=== PATIENT | female | born 1930 | race Caucasian/White ===

== ENCOUNTER 2019-06-09 17:17 | Emergency (ER) | payer BC ==
[2019-06-09 17:35] VITALS: TEMP 98; BMI 31.5
[2019-06-09] MEDS ORDERED: DIPHTH,PERTUSS(ACELL),TET 0.5 ML DISP.SYRIN IM ONE ×2 (18:02→20:33)
--- NOTE | 2019-06-09 18:06 | PDOC ---
History of Present Illness - General Chief Complaint: Injury Stated Complaint: FALL Time Seen by Provider: 06/09/19 17:49 - History of Present Illness Initial Comments: The pt is an 89F w/ a history of HTN, a-fib (no AC), HLD, HF who presents for evaluation s/p mechanical fall from standing. She states she was getting something out of the refrigerator, was not using her walker, lost her balance, and fell backwards. She states the fell backwards onto her bottom and hit her head on the cabinet behind her. She denies LOC. Denies dizziness before/after fall, denies chest pain, trouble breathing, change in vision, N/V/C/D, dysuria, diarrhea, hematuria, or blood in her stool. Reports she should be on Eliquis but has not taken it in 1.5 years. 06/09/19 18:00 Past History - Past Medical History Allergies/Adverse Reactions: Allergies Allergy/AdvReac Type Severity Reaction Status Date / Time No Known Allergies Allergy Verified 06/09/19 17:41 Home Medications: Ambulatory Orders Aspirin [ASA -] 81 mg PO DAILY 06/09/19 Atorvastatin Ca [Lipitor] 20 mg PO HS 06/09/19 Digoxin [Lanoxin -] 0.125 mg PO DAILY 06/09/19 Diltiazem HCl [Diltiazem ER] 120 mg PO DAILY 06/09/19 Furosemide [Lasix -] 40 mg PO DAILY 06/09/19 Lisinopril 5 mg PO DAILY 06/09/19 Cardiac Disorders: Yes (atrial fib) COPD: No HTN: Yes Hypercholesterolemia: Yes - Psycho Social/Smoking Cessation Hx Smoking History: Never smoked Hx Alcohol Use: Yes (occasional) Drug/Substance Use Hx: No Review of Systems - Review of Systems Able to Perform ROS?: Yes Comments:: GENERAL/CONSTITUTIONAL: No fever or chills. No weakness HEAD, EYES, EARS, NOSE AND THROAT: No change in vision. No change in hearing. No sore throat CARDIOVASCULAR: No chest pain or shortness of breath RESPIRATORY: Denies cough, hemoptysis GASTROINTESTINAL: No nausea, vomiting, diarrhea or constipation GENITOURINARY: No dysuria, frequency, or change in urination MUSCULOSKELETAL: No joint or muscle swelling or pain. No neck or back pain SKIN: No rash NEUROLOGIC: No headache, vertigo, loss of consciousness, or change in strength/ sensation ENDOCRINE: No increased thirst. No abnormal weight change HEMATOLOGIC/LYMPHATIC: No anemia, easy bleeding, or history of blood clots ALLERGIC/IMMUNOLOGIC: No hives or skin allergy 06/09/19 18:07 Is the patient limited Montserratian proficient: No *Physical Exam - Vital Signs Last Vital Signs Temp Pulse Resp BP Pulse Ox 98.0 F 93 H 16 119/58 L 100 06/09/19 17:20 06/09/19 17:20 06/09/19 17:20 06/09/19 17:20 06/09/19 17:20 - Physical Exam GENERAL: Awake, alert, and oriented to person/place/time, in no acute distress HEAD: No signs of trauma, normocephalic, atraumatic EYES: PERRLA, EOMI, sclera anicteric, conjunctiva clear ENT: Hearing grossly normal, nares patent, oropharynx clear without exudates. Moist mucosa LUNGS: No distress, speaks in full sentences, clear to auscultation bilaterally HEART: Regular rate and irregularly irregular rhythm, normal S1 and S2, no murmurs appreciated, peripheral pulses normal and equal bilaterally ABDOMEN: Soft, nontender, normoactive bowel sounds. No guarding, no rebound. No masses EXTREMITIES: Normal inspection, Normal range of motion, no edema. No clubbing or cyanosis NEUROLOGICAL: Cranial nerves II through XII grossly intact. Normal speech, normal gait, no focal sensorimotor deficits SKIN: 2.5cm linear laceration w/o active hemorrhage on R posterior parietal scalp 06/09/19 18:07 Procedures - Laceration/Wound Repair Right Posterior Head Wound Length: to 2.5 cm Wound Explored: clean Wound's Depth, Shape: superficial Irrigated w/ Saline: Yes Betadine Prep: No Anesthesia: 1% Lidocaine Amount of Anesthetic (ccs): 6 Wound Repaired With: Prescott (3) Layer Closure: No Sterile Dressing Applied: Yes ED Treatment Course - RADIOLOGY Radiology Studies Ordered: Category Date Time Status HEAD CT WITHOUT CONTRAST [CT] Stat CT Scan 06/09/19 18:00 Ordered Medical Decision Making - Medical Decision Making The pt is an 89F w/ a history of HTN, a-fib (no AC), HLD, HF who presents for evaluation s/p mechanical fall from standing. ED Course CT Head Boostrix UA, UCx 06/09/19 18:08 Laceration cleaned and repaired with 3 willa Wound care instructions given 06/09/19 18:46 CT head read and UA pending Pt signed out to night team Discharge - Discharge Information Problems reviewed: Yes Clinical Impression/Diagnosis: Laceration Fall Qualifiers: Encounter type: initial encounter Qualified Code(s): W19.XXXA - Unspecified fall, initial encounter Condition: Stable Disposition: HOME - Admission No - Follow up/Referral Referrals: [facility] [place] [place] [Provider Group] - Patient Discharge Instructions Patient Printed Discharge Instructions: DI for Laceration Repair -- [place] Additional Instructions: You were seen in the Emergency Department for evaluation after a fall. Your wound was stapled closed otherwise your imaging was unremarkable. To clean the wound wash with soap and water every day. Pat dry. You may leave the wound open to air. You will need to have the willa removed in 7 days. Return to the Emergency Department if you develop redness around the wound, increased swelling, fevers, wound drainage, worsening symptoms, change in sensation/strength, or any new/concerning symptoms. - Post Discharge Activity
--- NOTE | 2019-06-09 19:24 | PDOC ---
Documentation entered by Roel Valles SCRIBE, acting as scribe for Shane Salgado MD. Shane Salgado MD: This documentation has been prepared by the Hai lei Daniel, SCRIBE, under my direction and personally reviewed by me in its entirety. I confirm that the documentation accurately reflects all work, treatment, procedures, and medical decision making performed by me. Attending Attestation - Resident Resident Name: Walker Millan - ED Attending Attestation I have performed the following: I have examined & evaluated the patient, The case was reviewed & discussed with the resident, I agree w/resident's findings & plan, Exceptions are as noted - HPI HPI: 06/09/19 18:01 The patient is an 89 year old female with a past medical history of afib ( formely on eliquis but stopped due to cost) here today for evaluation of fall. The patient reports that she lost her balance while turning trying to get something from the fridge and fell backwards landing on her buttocks. She reports that when she fell she hit the back of her head on a cabinet. She denies any loss of consciousness, neck apain, vision changes, numbness/tingling/ wekness. Patient denies headache, lightheadedness. Denies fever, chills. Denies chest pain, shortness of breath, f/c, cough. Denies nausea, vomiting, diarrhea, abdominal pain, dysuria. Allergies: NKA - Physicial Exam PE: 06/09/19 19:22 GENERAL: The patient is awake, alert, and fully oriented, Nontoxic - in no acute distress. HEAD: Normocephalic, small superficial laceration on R parietal scalp with oozing blood. EYES: extraocular movements intact, sclera anicteric, conjunctiva clear. ENT: Normal voice, Moist mucous membranes. NECK: Normal range of motion, supple, no focal bony tendreness to midline of cervical/thoracic/lumbar spine. LUNGS: Breath sounds equal, clear to auscultation bilaterally. No wheezes, no rhonchi, no rales. HEART: iregular, normal S1 and S2 without murmur, rub or gallop. ABDOMEN: Soft, nontender, No guarding, no rebound. No CVA tenderness EXTREMITIES: Normal range of motion, pitting edema. NEUROLOGICAL: No facial assymetry, Normal speech, movin gall 4 extremities spontaneously and symmetrically , PSYCH: Normal mood, normal affect. SKIN: Warm, Dry, normal turgor, - Medical Decision Making 06/09/19 17:56 89y F hx of afib (off a/c) htn, hl, uses a walker at baseline presents sp fall , no LOC. +lac, therwise asympomatic will obtian CT head 06/09/19 19:24 laceration was closed with good approximation using [address] erad anticipate dc with oupatient fu
[2019-06-09 21:10] VITALS: BP 122/80; PULSE 82
== END 2019-06-09 21:10 | disposition home or self-care (01) ==
LOC: JER 17:17
PROC: 0HQ0XZZ Repair Scalp Skin, External Approach (ICD-10-PCS; principal; 2019-06-09)
PROC: 3E0234Z Introduction of Serum, Toxoid and Vaccine into Muscle, Percutaneous Approach (ICD-10-PCS; 2019-06-09)
DX: S01.01XA Laceration without foreign body of scalp, initial encounter (principal); W01.198A Fall on same level from slipping, tripping and stumbling with subsequent striking against other object, initial encounter; Y93.89 Activity, other specified; Y92.010 Kitchen of single-family (private) house as the place of occurrence of the external cause; Y99.8 Other external cause status; I25.10 Atherosclerotic heart disease of native coronary artery without angina pectoris; I11.0 Hypertensive heart disease with heart failure; I50.9 Heart failure, unspecified; I48.91 Unspecified atrial fibrillation; E78.5 Hyperlipidemia, unspecified; Z99.89 Dependence on other enabling machines and devices
CPT/HCPCS: 12001-25; 70450-TC; 90471; 90715; 99283-25

== ENCOUNTER 2019-06-15 11:54 | Inpatient (IN) | payer BC, OTHER ==
--- NOTE | 2019-06-15 12:31 | PDOC ---
History of Present Illness - General Chief Complaint: Suture/Staple Removal(Here) Stated Complaint: SUTURE REMOVAL Time Seen by Provider: 06/15/19 12:25 History Source: Patient Exam Limitations: No Limitations - History of Present Illness Initial Comments: 06/15/19 12:27 HPI: 89 yo F PMH HTN, CHF, Afib (not on AC "due to cost"), presented for staple removal from scalp, she then reported chest pain, SOB, and LE edema in setting of medication non-compliance in setting of recent move to the area (from [place] ). No local PCP, out of her prescription medications with 2 days of acute symptom worsening. Patient reports 2 years of worsening swelling in bilateral extremities, R worse than L. 3-4 years worsening shortness of breath, "had asthma as a child." Hasn't been on a plane in 3 years. Ambulates with a walker, limited by leg heaviness and SOB, progressively worsening. Denies recent chest pain, cough, fevers, chills, flights, nausea, vomiting, diarrhea, abdominal pain, dysuria. Endorses baseline constipation that has improved with rice bran, BM yesterday without blood or dark color. All: NKDA Meds: Non-compliant PMH: As above PSH: Denies, remote D&C Past History - Travel Traveled outside of the country in the last 30 days: No Close contact w/someone who was outside of country & ill: No - Past Medical History Allergies/Adverse Reactions: Allergies Allergy/AdvReac Type Severity Reaction Status Date / Time No Known Allergies Allergy Verified 06/09/19 17:41 Home Medications: Ambulatory Orders Aspirin [ASA -] 81 mg PO DAILY 06/09/19 Atorvastatin Ca [Lipitor] 20 mg PO HS 06/09/19 Digoxin [Lanoxin -] 0.125 mg PO DAILY 06/09/19 Diltiazem HCl [Diltiazem ER] 120 mg PO DAILY 06/09/19 Furosemide [Lasix -] 40 mg PO DAILY 06/09/19 Lisinopril 5 mg PO DAILY 06/09/19 Cardiac Disorders: Yes (atrial fib) COPD: No HTN: Yes Hypercholesterolemia: Yes - Psycho Social/Smoking Cessation Hx Smoking History: Never smoked Have you smoked in the past 12 months: No Information on smoking cessation initiated: No Hx Alcohol Use: No Drug/Substance Use Hx: No Review of Systems - Review of Systems Able to Perform ROS?: Yes Is the patient limited Cambodian proficient: Yes Constitutional: No: Chills, Diaphoresis, Fever, Weakness HEENTM: No: Recent change in vision, Nose Congestion, Throat Pain Respiratory: Yes: Cough (occasional, dry, not currently), Shortness of Breath, SOB with Exertion (diffiult to exert herself). No: Wheezing, Productive cough, Hemoptysis Cardiac (ROS): Yes: Edema (R > L). No: Chest Pain, Irregular Heart Rate, Lightheadedness, Palpitations, Syncope, Chest Tightness ABD/GI: Yes: Constipated. No: Diarrhea, Nausea, Rectal Bleeding, Vomiting : No: Burning, Dysuria, Frequency Musculoskeletal: No: Muscle Pain, Muscle Weakness, Neck Pain Integumentary: No: Erythema, Pallor, Rash Neurological: No: Headache, Numbness, Tingling, Weakness Psychiatric: No: Stressors, Change in Appetite Endocrine: No: Change in Weight Hematologic/Lymphatic: No: Anemia, Blood Clots, Easy Bleeding All Other Systems: Reviewed and Negative *Physical Exam - Vital Signs Last Vital Signs Temp Pulse Resp BP Pulse Ox 97.9 F 84 16 159/95 99 06/15/19 11:58 06/15/19 11:58 06/15/19 11:58 06/15/19 11:58 06/15/19 11:58 - Physical Exam 06/15/19 13:08 Vitals reviewed, AFVSS, hypertensive GEN: Well appearing, appears stated age, mild distress, speaking short sentences , comfortable. AAOx3. HEENT: NCAT, EOMI, PERRL. No facial asymmetry. Moist mucous membranes. Normal voice. Trachea midline. CV: Irregular rhythm, S1/S2, no murmurs / rubs / gallops appreciated. LUNG: CTAB. No wheezes, rales, rhonchi. No cough. Speaking short sentences. GI: Soft, NTND, no guarding, no rebound. No masses. EXTREMITIES: LE edema, R>L. No obvious deformities of all extremities. SKIN: Warm, dry, no rashes appreciated, non-jaundiced. PSYCH: Normal mood and affect. Cooperative and appropriate. NEURO: CN grossly intact. Moving all extremities well. Normal strength and sensation grossly. ED Treatment Course - LABORATORY CBC & Chemistry Diagram: 06/15/19 12:50 06/15/19 12:50 Medical Decision Making - Medical Decision Making 06/15/19 13:12 89 yo F PMH HTN, CHF, Afib (not on AC "due to cost"), presented for staple removal from scalp, she then reported chest pain, SOB, and LE edema in setting of medication non-compliance in setting of recent move to the area (from [place] ). Concerning for access to medications, decompensated CHF vs PNA vs COPD vs less likely PE. Patient with mostly chronic complaints, presenting with subacute medication discontinuation and symptom worsening. Will require close follow-up with a new primary as an outpatient. - CBC, CMP, Mg, Phos, Cardiac Profile, BNP, PT - CXR, EKG, Duplex US 06/15/19 13:53 - Digoxin level added on 06/15/19 14:04 - CXR with large heart, fullness of the zahra, RML density. No priors for comparison. - 1100 BNP, Troponin 0.03 - no baseline labs for comparison - Patient will be admitted, fluid overload, medication / PCP arrangement 06/15/19 15:06 - Duplex without signs of DVT - Digoxin level pending 06/15/19 15:13 - Nitro Paste - Furosemide 40mg 06/15/19 15:14 Discharge - Discharge Information Problems reviewed: Yes Clinical Impression/Diagnosis: Acute exacerbation of CHF (congestive heart failure) Qualifiers: Heart failure type: unspecified Qualified Code(s): I50.9 - Heart failure, unspecified Condition: Stable - Admission Yes - Follow up/Referral - Patient Discharge Instructions - Post Discharge Activity
[2019-06-15 13:22] LABS: BASO % 1.2 % (0-2.0); EOS % 2.5 % (0-4.5); HEMATOCRIT 35.8 % (32.4-45.2); HEMOGLOBIN 11.7 GM/dL (10.7-15.3); LYMPH % 25.2 % (8-40); MCH 30.5 pg (25.7-33.7); MCHC 32.6 g/dl (32.0-36.0); MEAN CELL VOLUME 93.5 fl (80-96); MEAN PLT VOLUME 7.6 fl (7.5-11.1); MONO % 10.5 % (3.8-10.2); NEUT % 60.6 % (42.8-82.8); PLATELET COUNT 203 K/MM3 (134-434); RBC 3.83 M/mm3 (3.60-5.2); RDW 14.3 % (11.6-15.6)
[2019-06-15 13:52] LABS: INR 1.17 (0.83-1.09); MAGNESIUM 2.2 mg/dL (1.8-2.4); N-TERMINAL BNP 1196.5 pg/ml (5-450); PHOSPHOROUS 3.9 mg/dL (2.5-4.9); PROTHROMBIN TIME (PATIENT) 13.8 SEC (9.7-13.0)
[2019-06-15 13:55] LABS: ACTIVATED PTT 33.3 SECONDS (25.2-36.5)
[2019-06-15 14:07] LABS: BILIRUBIN,TOTAL 0.9 mg/dL (0.2-1); BLOOD UREA NITROGEN 25.2 mg/dL (7-18); CALCIUM 9.3 mg/dL (8.5-10.1); CREATININE 1.1 mg/dL (0.55-1.3); POTASSIUM 4.4 mmol/L (3.5-5.1); TOT PROT 7.5 g/dl (6.4-8.2)
--- NOTE | 2019-06-15 14:15 | EKG ---
Test Reason : Blood Pressure : / mmHG Vent. Rate : 087 BPM Atrial Rate : 080 BPM P-R Int : 000 ms QRS Dur : 090 ms QT Int : 340 ms P-R-T Axes : 000 023 -46 degrees QTc Int : 409 ms ATRIAL FIBRILLATION WITH A COMPETING JUNCTIONAL PACEMAKER NONSPECIFIC ST AND T WAVE ABNORMALITY ABNORMAL ECG WHEN COMPARED WITH ECG OF 05-APR-1998 13:41, ATRIAL FIBRILLATION HAS REPLACED SINUS RHYTHM NONSPECIFIC T WAVE ABNORMALITY NOW EVIDENT IN INFERIOR LEADS NONSPECIFIC T WAVE ABNORMALITY, WORSE IN ANTEROLATERAL LEADS Confirmed by MELODY CEDILLO MD ([id number]) on 06/15/2019 2:14:50 PM Referred By: Confirmed By:MELODY CEDILLO MD
[2019-06-15] MEDS ORDERED: FUROSEMIDE 40 MG/4 ML INJECTABLE VIAL IVPUSH ONE (15:12)
[2019-06-15] MEDS ORDERED: NITROGLYCERIN 2% OINTMENT - 1GM PACKET TD ONE ×2 (15:12→16:11)
--- NOTE | 2019-06-15 15:20 | PDOC ---
Documentation entered by Patricia Nelson SCRIBE, acting as scribe for Yuni Russell MD. Yuni Russell MD: This documentation has been prepared by the Leslie lei Brenda, SCRIBE, under my direction and personally reviewed by me in its entirety. I confirm that the documentation accurately reflects all work, treatment, procedures, and medical decision making performed by me. Attending Attestation - Resident Resident Name: ForrestAurelio - ED Attending Attestation I have performed the following: I have examined & evaluated the patient, The case was reviewed & discussed with the resident, I agree w/resident's findings & plan, Exceptions are as noted - HPI HPI: 89 yo F history HTN, CHF, afib presents for staple removal, however, she also c/ o cp, SOb, and progressively worsening LE edema. She ran out of her medication, and recently [place] from [place], does not have a physician here. +Swelling to BLE, R> L. No other complaints at present. - Physicial Exam PE: GENERAL: Awake, alert, and fully oriented, in no acute distress HEAD: No signs of trauma EYES: PERRLA, EOMI, sclera anicteric, conjunctiva clear ENT: Auricles normal inspection, hearing grossly normal, nares patent, oropharynx clear without exudates. Moist mucosa NECK: Normal ROM, supple, no lymphadenopathy, JVD, or masses LUNGS: Good air entry B/L, with diffuse crackles B/L. HEART: Regular rate and rhythm, normal S1 and S2, no murmurs, rubs or gallops ABDOMEN: Soft, nontender, normoactive bowel sounds. No guarding, no rebound. No masses EXTREMITIES: Normal range of motion. 2+ pitting edema to BLE. No clubbing or cyanosis. No cords, erythema, or tenderness NEUROLOGICAL: Cranial nerves II through XII grossly intact. Normal speech. Motor and sensation intact. SKIN: Warm, Dry, normal turgor, no rashes or lesions noted. - Medical Decision Making Pt presented for suture removal, however, she also was noted to have leg swelling and SOB, noted to be off all of her medications as she recently moved back from [place] and does not have a physician here. Will give nitropaste to help with her breathing, lasix, admit. Heart Score/ECG Review - ECG Impressions Comment:: EKG read 12:22- afib with rate 87. No acute ST/T changes.
[2019-06-15] MEDS ORDERED: FUROSEMIDE 40 MG/4 ML INJECTABLE VIAL ONE (16:11)
--- NOTE | 2019-06-15 16:57 | HP ---
CHIEF COMPLAINT: Chest Pain PCP: Pt. does not have one. HISTORY OF PRESENT ILLNESS: Pt. is an 89 y.o. M w/ PMHx. of HTN, CHF, Afib(not on AC because of monetary issues) and DM2 presents for removal of willa after a fall on the . Pt. during removal of willa endorsed chest pain that has since resolved. Pt. states she fell because she was trying to perform her household duties without her walker and fell and hit her head. Head CT was negative at that time. Pt. states that she lives alone at home and has been experiencing worsening dyspnea on exertion. Pt. has been without Eliquis for the last 1.5 years because of issues with the munson of the medication. Pt. states she has run out of her medications and has not been able to follow up with any physician. Pt. endorses leg swelling. Pt. denies any current shortness of breath, chest pain, fever, chills, nausea, vomiting, dysuria or diarrhea. ER course was notable for: (1)CBC, CMP, EKG, (2)Lasix 40mg IVP, BNP, Digoxin level (3)CXR Recent Travel: Pt. moved here from [place] PAST MEDICAL HISTORY: As above PAST SURGICAL HISTORY: D&C Social History: Smoking: Denies Alcohol: Denies Drugs: Denies Allergies No Known Allergies Allergy (Verified 06/09/19 17:41) HOME MEDICATIONS: Home Medications Medication Instructions Recorded Aspirin [ASA -] 81 mg PO DAILY 06/09/19 Atorvastatin Ca [Lipitor] 20 mg PO HS 06/09/19 Digoxin [Lanoxin -] 0.125 mg PO DAILY 06/09/19 Diltiazem HCl [Diltiazem ER] 120 mg PO DAILY 06/09/19 Furosemide [Lasix -] 40 mg PO DAILY 06/09/19 Lisinopril 5 mg PO DAILY 06/09/19 REVIEW OF SYSTEMS As above PHYSICAL EXAMINATION Vital Signs - 24 hr 06/15/19 06/15/19 06/15/19 11:58 13:10 16:15 Temperature 97.9 F Pulse Rate 84 Pulse Rate [ 88 Apical] Respiratory 16 20 Rate Blood Pressure 159/95 Blood Pressure 152/89 [Left Arm] O2 Sat by Pulse 99 99 100 Oximetry (%) GENERAL: Awake, alert, and fully oriented, in no acute distress. HEAD: Laceration EYES: Extraocular movements intact, sclera anicteric, conjunctiva clear. EARS, NOSE, THROAT: Ears normal, nares patent, oropharynx clear without exudates. Moist mucous membranes. NECK: Normal range of motion, supple without lymphadenopathy, JVD, or masses. LUNGS: CTAB anteriorly. accessory muscle use. HEART: Irregular rate and rhythm, normal S1 and S2 with 4/6 systolic murmur UPPER EXTREMITIES: 2+ radial pulses, warm, well-perfused. No cyanosis. No clubbing. No peripheral edema. LOWER EXTREMITIES: 2+ dorsal pedal pulses, warm, well-perfused. No calf tenderness. 3+ edema. RLE >LLE NEUROLOGICAL: Cranial nerves II-XII grossly intact. Normal speech. PSYCHIATRIC: Cooperative. Good eye contact. Appropriate mood and affect. SKIN: Warm, dry Laboratory Results - last 24 hr 06/15/19 06/15/19 06/15/19 12:50 12:50 12:50 WBC 5.0 RBC 3.83 Hgb 11.7 Hct 35.8 MCV 93.5 MCH 30.5 MCHC 32.6 RDW 14.3 Plt Count 203 MPV 7.6 Absolute Neuts (auto) 3.0 Neutrophils % 60.6 Lymphocytes % 25.2 Monocytes % 10.5 H Eosinophils % 2.5 Basophils % 1.2 Nucleated RBC % 0 PT with INR INR PTT (Actin FS) Sodium 140 Potassium 4.4 Chloride 108 H Carbon Dioxide 28 Anion Gap 3 L BUN 25.2 H Creatinine 1.1 Est GFR (CKD-EPI)AfAm 52.28 Est GFR (CKD-EPI)NonAf 45.11 Random Glucose 82 Calcium 9.3 Phosphorus 3.9 Magnesium 2.2 Total Bilirubin 0.9 AST 34 ALT 44 Alkaline Phosphatase 84 Creatine Kinase 106 Troponin I 0.03 B-Natriuretic Peptide 1196.5 H Total Protein 7.5 Albumin 4.0 Digoxin 06/15/19 06/15/19 12:50 13:52 WBC RBC Hgb Hct MCV MCH MCHC RDW Plt Count MPV Absolute Neuts (auto) Neutrophils % Lymphocytes % Monocytes % Eosinophils % Basophils % Nucleated RBC % PT with INR 13.80 H INR 1.17 H PTT (Actin FS) 33.3 Sodium Potassium Chloride Carbon Dioxide Anion Gap BUN Creatinine Est GFR (CKD-EPI)AfAm Est GFR (CKD-EPI)NonAf Random Glucose Calcium Phosphorus Magnesium Total Bilirubin AST ALT Alkaline Phosphatase Creatine Kinase Troponin I B-Natriuretic Peptide Total Protein Albumin Digoxin 0.54 L ASSESSMENT/PLAN: Pt. is an 89 y.o. M w/ PMHx. of HTN, CHF, Afib(not on AC because of monetary issues) and DM2 presents for removal of willa after a fall on the 10th. Pt. during removal of willa endorsed chest pain that has since resolved. #Congestive Heart Failure likely acute exacerbation will get Echo, call x 3 to [facility] [place] in [facility] unsuccessful for medical records Cardiology Consult to Dr. Keller to establish care and to manage Pt.s chronic conditions will start IV Lasix 20mg (caution because of 4/6 systolic murmur)--> titrate up pending echo results and pending diuretic response BNP: 1,196 Trop Negative, f/u Rpt. EKG shows Afib, 87 bpm, QTc: 409 and nonspecific T-wave abnormalities CXR: shows prominent fullness of zahra, with density in R. mid lung c/w ASA Strict Is and Os, Daily weights #Afib c/w Digoxin Digoxin Level: 0.54 started Eliquis 5mg BID c/w Diltiazem #HTN c/w Diltiazem and Lisinopril #DM Pt. endorses having DM will start ISS ACHS BGMs ACHS f/u A1c #HLD Lipitor 20mg #FEN no IVF, encourage PO intake with limit of 2L monitor electrolytes and replete as needed Diabetic/ Sodium controlled diet #DVT Ppx. Eliquis Visit type - Emergency Visit Emergency Visit: Yes ED Registration Date: 06/15/19 Care time: The patient presented to the Emergency Department on the above date and was hospitalized for further evaluation of their emergent condition. - New Patient This patient is new to me today: Yes Date on this admission: 06/15/19 - Critical Care Critical Care patient: No ATTENDING PHYSICIAN STATEMENT I saw and evaluated the patient. I reviewed the resident's note and discussed the case with the resident. I agree with the resident's findings and plan as documented. SUBJECTIVE: OBJECTIVE: ASSESSMENT AND PLAN:
--- NOTE | 2019-06-15 19:26 | PN ---
Teaching Attending Note Name of Resident: Orlin Cruz ATTENDING PHYSICIAN STATEMENT I saw and evaluated the patient. I reviewed the resident's note and discussed the case with the resident. I agree with the resident's findings and plan as documented. 89 F h/o HTN, CHF, Afib, T2Dm, obesity, presents for removal of willa s/p fall 5-6 days ago. Patient endorses having a mechanical fall at home and fell straight back, denies LOC but endorses some diffuse MSK pain. Patient presented today for removal of wilal in ED and was found to have QUEVEDO, crackles, and Afib exacerbation. Currently patient feels OK, denies CP/SOB/LOC but endorses SOB on exertion which has slowly progressed over days to weeks. Endorses all of her records are at [facility] in [place], [place], last admitted >1 year ago with similar presentation. PE VSS GA comfortable, AAox3, speaking in full sentences HEENT NC/AT, EOMI, neck supple, no JVD Chest good air entry b/l, mild bibasilar crackles, no wheezing CVS Irregularly irregular, GARRY+ Abd obese, Soft, NT, BS+, no guarding Ext b/l 1+ pitting edema, RLE>LLE Vital Signs - 24 hr 06/15/19 06/15/19 06/15/19 11:58 13:10 16:15 Temperature 97.9 F Pulse Rate 84 Pulse Rate [ 88 Apical] Respiratory 16 20 Rate Blood Pressure 159/95 Blood Pressure 152/89 [Left Arm] O2 Sat by Pulse 99 99 100 Oximetry (%) Laboratory Results - last 24 hr 06/15/19 06/15/19 06/15/19 12:50 12:50 12:50 WBC 5.0 RBC 3.83 Hgb 11.7 Hct 35.8 MCV 93.5 MCH 30.5 MCHC 32.6 RDW 14.3 Plt Count 203 MPV 7.6 Absolute Neuts (auto) 3.0 Neutrophils % 60.6 Lymphocytes % 25.2 Monocytes % 10.5 H Eosinophils % 2.5 Basophils % 1.2 Nucleated RBC % 0 PT with INR INR PTT (Actin FS) Sodium 140 Potassium 4.4 Chloride 108 H Carbon Dioxide 28 Anion Gap 3 L BUN 25.2 H Creatinine 1.1 Est GFR (CKD-EPI)AfAm 52.28 Est GFR (CKD-EPI)NonAf 45.11 Random Glucose 82 Calcium 9.3 Phosphorus 3.9 Magnesium 2.2 Total Bilirubin 0.9 AST 34 ALT 44 Alkaline Phosphatase 84 Creatine Kinase 106 Troponin I 0.03 B-Natriuretic Peptide 1196.5 H Total Protein 7.5 Albumin 4.0 Digoxin 06/15/19 06/15/19 12:50 13:52 WBC RBC Hgb Hct MCV MCH MCHC RDW Plt Count MPV Absolute Neuts (auto) Neutrophils % Lymphocytes % Monocytes % Eosinophils % Basophils % Nucleated RBC % PT with INR 13.80 H INR 1.17 H PTT (Actin FS) 33.3 Sodium Potassium Chloride Carbon Dioxide Anion Gap BUN Creatinine Est GFR (CKD-EPI)AfAm Est GFR (CKD-EPI)NonAf Random Glucose Calcium Phosphorus Magnesium Total Bilirubin AST ALT Alkaline Phosphatase Creatine Kinase Troponin I B-Natriuretic Peptide Total Protein Albumin Digoxin 0.54 L Current Medications Generic Name Dose Route Start Last Admin Trade Name Freq PRN Reason Stop Dose Admin Apixaban 5 mg 06/15/19 22:00 Eliquis - PO BID [facility] Aspirin 81 mg 06/16/19 10:00 Asa - PO DAILY [facility] Atorvastatin Calcium 20 mg 06/15/19 22:00 Lipitor - PO HS [facility] Digoxin 0.125 mg 06/16/19 10:00 Lanoxin - PO DAILY [facility] Diltiazem HCl 120 mg 06/16/19 10:00 Cardizem Cd - PO DAILY [facility] Furosemide 20 mg 06/16/19 10:00 Lasix Injection - IVPUSH DAILY [facility] Lisinopril 5 mg 06/16/19 10:00 Prinivil PO DAILY [facility] Home Medications Medication Instructions Recorded Aspirin [ASA -] 81 mg PO DAILY 06/09/19 Atorvastatin Ca [Lipitor] 20 mg PO HS 06/09/19 Digoxin [Lanoxin -] 0.125 mg PO DAILY 06/09/19 Diltiazem HCl [Diltiazem ER] 120 mg PO DAILY 06/09/19 Furosemide [Lasix -] 40 mg PO DAILY 06/09/19 Lisinopril 5 mg PO DAILY 06/09/19 A/P: 89 F CHF, HTN, T2Dm, obesity, Afib ?not on AC, admitted for management for CHFE and difficulty taking care of herself at home. Afib rate controlled, get digoxin levels, restart BB as tolerated CT brain neg. for bleed, no mental status changes, restart AC CHFE unknown EF, last echo years ago unable to recall results place Echo to evaluate cardiac function obtain trops x3 with EKGs 1 dose of Lasix 20mg IVP, restart BP meds as tolerated Cardiology consult T2Dm ISS, DM diet, basal insulin as needed Send A1c, lipid panel, TSH, RPR, B12 levels obesity counseled on diet, weight loss DVT ppx: Jose Admit to tele
[2019-06-15] MEDS: APIXABAN 5 MG TABLET PO SCH (21:04)
[2019-06-15] MEDS: ATORVASTATIN CA 20 MG TABLET (FP) PO SCH (21:04)
[2019-06-16 00:54] VITALS: BMI 30.3
[2019-06-16 09:26] LABS: BASO % 2.2 % (0-2.0); EOS % 2.7 % (0-4.5); HEMOGLOBIN 11.5 GM/dL (10.7-15.3); LYMPH % 34.4 % (8-40); MCH 30.6 pg (25.7-33.7); MCHC 32.9 g/dl (32.0-36.0); MEAN PLT VOLUME 8.1 fl (7.5-11.1); MONO % 13.4 % (3.8-10.2); NEUT % 47.3 % (42.8-82.8); PLATELET COUNT 207 K/MM3 (134-434); RBC 3.77 M/mm3 (3.60-5.2); RDW 14.2 % (11.6-15.6); WHITE BLOOD COUNT 4.5 K/mm3 (4.0-10.0)
--- NOTE | 2019-06-16 09:49 | CON.CARD ---
Consult Consult Specialty:: Cardiology Referred by:: Dr. Cervantes Reason for Consultation:: SOB - History of Present Illness Chief Complaint: SOB History of Present Illness: Pt is poor historian, history obtained primarily from review of ER and admission H/P: "89 y.o. M w/ PMHx. of HTN, CHF, Afib(not on AC because of monetary issues) and DM2 presents for removal of wilal after a fall on the . Pt. during removal of willa endorsed chest pain that has since resolved. Pt. states she fell because she was trying to perform her household duties without her walker and fell and hit her head. Head CT was negative at that time. Pt. states that she lives alone at home and has been experiencing worsening dyspnea on exertion. Pt. has been without Eliquis for the last 1.5 years because of issues with the munson of the medication. Pt. states she has run out of her medications and has not been able to follow up with any physician. Pt. endorses leg swelling. Pt. denies any current shortness of breath, chest pain, fever, chills , nausea, vomiting, dysuria or diarrhea." Patient denies CP, palps but does endorse feeling SOB for a few days with increased LE edema. 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 - History Source History Provided By: Patient, Medical Record - Past Medical History [employer]OLOGY [employer]NS[employer]IP: No: Alzheimer's, CVA, Dementia, Migraine, Multiple Sclerosis, Peripheral Neuropathy, Parkinson's, Seizure, Syncope, TIA, Vertigo, Other Cardio/Vascular: Yes: AFIB, CHF, HTN Pulmonary: No: Asthma, Bronchitis, Cancer, COPD, O2 Dependent, Pneumonia, Previously Intubated, Pulmonary Embolus, Pulmonary Fibrosis, Sleep Apnea, Other Gastrointestinal: No: Ascites, Cancer, Constipation, Crohn's Disease, Diverticulitis, Diverticulosis, Esophageal Varices, Gastritis, GERD, GI Bleed, Hemorrhoids, Hiatal Hernia, Inflamatory Bowel Disease, Irritable Bowel Disease, Pancreatitis, Peptic Ulcer Disease, Ulcerative Colitis, Other Hepatobiliary: No: Cirrhosis, Cholelithiasis, Cholecystitis, Choledocholithiasis , Hepatitis A, Hepatitis B, Hepatitis C, Other Renal/: No: Renal Failure, Renal Inusuff, BPH, Cancer, Hematuria, Hemodialysis , Neurogenic Bladder, Renal Calculi, UTI, Other Reproductive: No: Ectopic , Endometriosis, Fibroids, PID, Polycystic Ovary Syndrome, Postmenopausal, Other Psych: No: Addictions, Anxiety, Bipolar, Depression, Panic, Psychosis, Schizophrenia, Other Musculoskeletal: No: Bursitis, Chronic low back pain, Hemiparesis, Hemiplegia, Osteoarthritis, Paraplegia, Other Rheumatology: No: Fibromyalgia, Gout, Lupus, Rheumatoid Arthritis, Sarcoidosis, Vasculitis, Other ENT: No: Allergic Rhinitis, Sinusitis, Other Endocrine: No: Michael's Disease, Viet's Disease, Diabetes Insipidus, Diabetes Mellitus, Hyperparathyroidism, Hyperthyroidism, Hypothyroidism, Osteopenia, SIADH, Other - Alcohol/Substance Use Hx Alcohol Use: No - Smoking History Smoking history: Never smoked Have you smoked in the past 12 months: No - Social History Usual Living Arrangement: Alone History of Recent Travel: No Home Medications - Allergies Allergies/Adverse Reactions: Allergies Allergy/AdvReac Type Severity Reaction Status Date / Time No Known Allergies Allergy Verified 06/09/19 17:41 - Home Medications Home Medications: Ambulatory Orders Aspirin [ASA -] 81 mg PO DAILY 06/09/19 Atorvastatin Ca [Lipitor] 20 mg PO HS 06/09/19 Digoxin [Lanoxin -] 0.125 mg PO DAILY 06/09/19 Diltiazem HCl [Diltiazem ER] 120 mg PO DAILY 06/09/19 Furosemide [Lasix -] 40 mg PO DAILY 06/09/19 Lisinopril 5 mg PO DAILY 06/09/19 Family Medical History Family History: Unremarkable Review of Systems Findings/Remarks: see HPI - Review of Systems Constitutional: reports: No Symptoms Eyes: reports: No Symptoms HENT: reports: No Symptoms Neck: reports: No Symptoms Cardiovascular: reports: Shortness of Breath Respiratory: reports: Exercise Intolerance Gastrointestinal: reports: No Symptoms Genitourinary: reports: No Symptoms Integumentary: reports: No Symptoms Neurological: reports: No Symptoms Endocrine: reports: No Symptoms Hematology/Lymphatic: reports: No Symptoms Psychiatric: reports: No Symptoms - Risk Factors Known Risk Factors: Yes: Hypertension, Other (CHF) Vital Signs: Vital Signs Temperature 98.2 F 06/16/19 04:00 Pulse Rate 88 06/16/19 04:00 Respiratory Rate 20 06/16/19 04:00 Blood Pressure 153/78 06/16/19 04:00 O2 Sat by Pulse Oximetry (%) 97 06/15/19 22:00 Constitutional: Yes: No Distress, Calm Respiratory: Yes: Other (decreased breath sounds bases) Gastrointestinal: Yes: Soft Cardiovascular: Yes: Pulse Irregular JVD: Yes Heart Sounds: Yes: S1, S2 (irreg) Edema: Yes Edema: LLE: 2+, RLE: 2+ Neurological: Yes: Alert - Other Data Labs, Other Data: CBC, BMP 06/16/19 08:45 INR, PTT INR 1.17 (0.83-1.09) H 06/15/19 12:50 Troponin, BNP 06/15/19 06/15/19 12:50 20:40 Troponin I 0.03 0.03 B-Natriuretic Peptide 1196.5 H Troponin, BNP 06/15/19 06/15/19 12:50 20:40 Troponin I 0.03 0.03 B-Natriuretic Peptide 1196.5 H Laboratory Tests 06/15/19 06/15/19 06/15/19 12:50 12:50 12:50 WBC Hgb Plt Count INR 1.17 H Sodium 140 Potassium 4.4 BUN 25.2 H Creatinine 1.1 Troponin I 0.03 B-Natriuretic Peptide 1196.5 H Digoxin 06/15/19 06/15/19 06/16/19 13:52 20:40 08:45 WBC 4.5 Hgb 11.5 Plt Count 207 INR Sodium Potassium BUN Creatinine Troponin I 0.03 B-Natriuretic Peptide Digoxin 0.54 L AF 87, NSST Echo: Pending Imaging - Results EKG: Image Reviewed Assessment/Plan IMP: Acute on chronic CHF, mild exacerbation- unknown type (Syst vs diast) AF HTN REC: 1. Agree to resume AC as [id number] score merits AC. Will need to involve social work/pillowcase maker to see if she can obtain Eliquis as outpatient. 2. Can d/c ASA while on Eliquis. 3. Agree w/ IV Lasix/ daily weights/daily BMP to monitor renal fx 4. Echo for EF assessment. 5. Cont Cardize,/digoxin/Lisinopril
[2019-06-16] MEDS ORDERED: ASPIRIN 81 MG CHEWABLE TABLETS PO SCH (10:00)
[2019-06-16] MEDS ORDERED: FUROSEMIDE 40 MG/4 ML INJECTABLE VIAL IVPUSH SCH ×2 (10:00)
[2019-06-16 10:02] LABS: CALCIUM 9.5 mg/dL (8.5-10.1); CREATININE 1.3 mg/dL (0.55-1.3); PHOSPHOROUS 4.5 mg/dL (2.5-4.9); POTASSIUM 4.2 mmol/L (3.5-5.1)
[2019-06-16] MEDS: LISINOPRIL 5 MG TABLET (FP) PO SCH (10:12)
[2019-06-16] MEDS: DIGOXIN 0.125 MG TABLET (FP) PO SCH (10:29)
[2019-06-16] MEDS: APIXABAN 5 MG TABLET PO SCH ×2 (10:34→21:35)
--- NOTE | 2019-06-16 11:38 | ECHO ---
Name: SANKET GALVAN Exam:Adult Echocardiogram Study Date: 06/16/2019 09:37 AM Age: 89 yrs Reason For Study: LV Function Height: 66 in Weight: 200 lb BSA: 2.0 m2 MMode/2D Measurements & Calculations IVSd: 1.2 cm Ao root diam: 2.3 cm LVIDd: 5.4 cm LA dimension: 5.8 cm LVIDs: 3.8 cm LVPWd: 1.1 cm EDV(Teich): 138.3 ml LVOT diam: 2.0 cm ESV(Teich): 63.7 ml LAV (MOD-bp): 161.0 ml Doppler Measurements & Calculations MV E max taran: 119.5 cm/sec Ao V2 max: 211.7 cm/sec MV dec time: 0.19 sec Ao max P.0 mmHg Ao V2 mean: 142.1 cm/sec Ao mean P.4 mmHg Ao V2 VTI: 34.6 cm MJ(I,D): 1.7 cm2 AI P1/2t: 532.9 msec MJ(V,D): 1.5 cm2 AI max taran: 455.4 cm/sec LV V1 max P.9 mmHg AI max P.2 mmHg LV V1 mean P.2 mmHg AI dec slope: 250.3 cm/sec2 LV V1 max: 99.0 cm/sec LV V1 mean: 69.4 cm/sec LV V1 VTI: 18.3 cm MR max taran: 547.7 cm/sec SV(LVOT): 57.9 ml MR max P.5 mmHg TR max taran: 370.6 cm/sec PA V2 max: 147.0 cm/sec TR max P.6 mmHg PA max P.6 mmHg Med Peak E' Taran: 6.1 cm/sec PI Vmax: 238.9 cm/sec Med E/e': 19.6 Lat Peak E' Taran: 12.4 cm/sec Lat E/e': 9.6 Left Ventricle There is mild concentric left ventricular hypertrophy. Left ventricular systolic function is normal. Ejection Fraction = 55-60%. Right Ventricle The right ventricle is grossly normal size. The right ventricular systolic function is grossly normal . Atria The left atrium is severely dilated. The right atrium is moderate to severely dilated. Mitral Valve There is mild mitral valve thickening. There is no mitral valve stenosis. There is moderate to severe mitral regurgitation. Tricuspid Valve The tricuspid valve is not well visualized, but is grossly normal. There is moderate tricuspid regurg itation. There is severe pulmonary hypertension. Right ventricular systolic pressure is elevated at >60mmHg. Aortic Valve There is mild aortic sclerosis.;. No hemodynamically significant valvular aortic stenosis. Mild aorti c regurgitation. Great Vessels The aortic root is normal size. Pericardium/Pleura There is no pericardial effusion. Interpretation Summary There is mild concentric left ventricular hypertrophy. Left ventricular systolic function is normal. Ejection Fraction = 55-60%. The left atrium is severely dilated. The right atrium is moderate to severely dilated. There is mild mitral valve thickening. There is moderate to severe mitral regurgitation. There is moderate tricuspid regurgitation. There is severe pulmonary hypertension. Right ventricular systolic pressure is elevated at >60mmHg. There is mild aortic sclerosis.; Mild aortic regurgitation. MD Cook *Quirino 06/16/2019 11:38 AM
[2019-06-16] MEDS ORDERED: FUROSEMIDE 40 MG/4 ML INJECTABLE VIAL IVPUSH STA (13:27)
--- NOTE | 2019-06-16 13:27 | PN ---
Teaching Attending Note Name of Resident: Tom Richardson ATTENDING PHYSICIAN STATEMENT I saw and evaluated the patient. I reviewed the resident's note and discussed the case with the resident. I agree with the resident's findings and plan as documented. SUBJECTIVE: Feeling well, less SOB, complains of mild headache. OBJECTIVE: Afebrile, Hemodynamically Stable. Last Vital Signs Temp Pulse Resp BP Pulse Ox 98.2 F 82 20 153/78 97 06/16/19 04:00 06/16/19 10:29 06/16/19 04:00 06/16/19 04:00 06/15/19 22:00 HEENT - R parietal lesion healed, sutures out. Heart - S1, S2, RRR Lungs - clear to auscultation, mild decrease in basal air entry Abdomen - soft, non-tender. Bowel sounds normal. Extremities - mild pitting edema, no calf tenderness. Laboratory Results - last 24 hr 06/15/19 06/15/19 06/15/19 12:50 12:50 12:50 WBC 5.0 RBC 3.83 Hgb 11.7 Hct 35.8 MCV 93.5 MCH 30.5 MCHC 32.6 RDW 14.3 Plt Count 203 MPV 7.6 Absolute Neuts (auto) 3.0 Neutrophils % 60.6 Lymphocytes % 25.2 Monocytes % 10.5 H Eosinophils % 2.5 Basophils % 1.2 Nucleated RBC % 0 PT with INR INR PTT (Actin FS) Sodium 140 Potassium 4.4 Chloride 108 H Carbon Dioxide 28 Anion Gap 3 L BUN 25.2 H Creatinine 1.1 Est GFR (CKD-EPI)AfAm 52.28 Est GFR (CKD-EPI)NonAf 45.11 POC Glucometer Random Glucose 82 Hemoglobin A1c % Calcium 9.3 Phosphorus 3.9 Magnesium 2.2 Total Bilirubin 0.9 AST 34 ALT 44 Alkaline Phosphatase 84 Creatine Kinase 106 Troponin I 0.03 B-Natriuretic Peptide 1196.5 H Total Protein 7.5 Albumin 4.0 Digoxin 06/15/19 06/15/19 06/15/19 12:50 13:52 20:40 WBC RBC Hgb Hct MCV MCH MCHC RDW Plt Count MPV Absolute Neuts (auto) Neutrophils % Lymphocytes % Monocytes % Eosinophils % Basophils % Nucleated RBC % PT with INR 13.80 H INR 1.17 H PTT (Actin FS) 33.3 Sodium Potassium Chloride Carbon Dioxide Anion Gap BUN Creatinine Est GFR (CKD-EPI)AfAm Est GFR (CKD-EPI)NonAf POC Glucometer Random Glucose Hemoglobin A1c % 5.3 Calcium Phosphorus Magnesium Total Bilirubin AST ALT Alkaline Phosphatase Creatine Kinase Troponin I B-Natriuretic Peptide Total Protein Albumin Digoxin 0.54 L 06/15/19 06/15/19 06/16/19 20:40 21:06 06:16 WBC RBC Hgb Hct MCV MCH MCHC RDW Plt Count MPV Absolute Neuts (auto) Neutrophils % Lymphocytes % Monocytes % Eosinophils % Basophils % Nucleated RBC % PT with INR INR PTT (Actin FS) Sodium Potassium Chloride Carbon Dioxide Anion Gap BUN Creatinine Est GFR (CKD-EPI)AfAm Est GFR (CKD-EPI)NonAf POC Glucometer 95 82 Random Glucose Hemoglobin A1c % Calcium Phosphorus Magnesium Total Bilirubin AST ALT Alkaline Phosphatase Creatine Kinase Troponin I 0.03 B-Natriuretic Peptide Total Protein Albumin Digoxin 06/16/19 06/16/19 08:45 08:45 WBC 4.5 RBC 3.77 Hgb 11.5 Hct 35.0 MCV 93.0 MCH 30.6 MCHC 32.9 RDW 14.2 Plt Count 207 MPV 8.1 Absolute Neuts (auto) 2.1 Neutrophils % 47.3 D Lymphocytes % 34.4 D Monocytes % 13.4 H Eosinophils % 2.7 Basophils % 2.2 H Nucleated RBC % 0 PT with INR INR PTT (Actin FS) Sodium 141 Potassium 4.2 Chloride 106 Carbon Dioxide 32 Anion Gap 4 L BUN 28.0 H Creatinine 1.3 Est GFR (CKD-EPI)AfAm 42.72 Est GFR (CKD-EPI)NonAf 36.86 POC Glucometer Random Glucose 83 Hemoglobin A1c % Calcium 9.5 Phosphorus 4.5 Magnesium 2.0 Total Bilirubin AST ALT Alkaline Phosphatase Creatine Kinase Troponin I B-Natriuretic Peptide Total Protein Albumin Digoxin Current Medications Generic Name Dose Route Start Last Admin Trade Name Freq PRN Reason Stop Dose Admin Apixaban 5 mg 06/15/19 22:00 06/16/19 10:34 Eliquis - PO 5 mg BID BETINA Administration Aspirin 81 mg 06/16/19 10:00 06/16/19 10:28 Asa - PO 81 mg DAILY BETINA Administration Atorvastatin Calcium 20 mg 06/15/19 22:00 06/15/19 21:04 Lipitor - PO 20 mg HS BETINA Administration Digoxin 0.125 mg 06/16/19 10:00 06/16/19 10:29 Lanoxin - PO 0.125 mg DAILY BETINA Administration Diltiazem HCl 120 mg 06/16/19 10:00 06/16/19 10:28 Cardizem Cd - PO 120 mg DAILY BETINA Administration Furosemide 20 mg 06/16/19 10:00 06/16/19 10:35 Lasix Injection - IVPUSH 20 mg DAILY BETINA Administration Lisinopril 5 mg 06/16/19 10:00 06/16/19 10:12 Prinivil PO Not Given DAILY [facility] Home Medications Medication Instructions Recorded Aspirin [ASA -] 81 mg PO DAILY 06/09/19 Atorvastatin Ca [Lipitor] 20 mg PO HS 06/09/19 Digoxin [Lanoxin -] 0.125 mg PO DAILY 06/09/19 Diltiazem HCl [Diltiazem ER] 120 mg PO DAILY 06/09/19 Furosemide [Lasix -] 40 mg PO DAILY 06/09/19 Lisinopril 5 mg PO DAILY 06/09/19 ASSESSMENT/PLAN 89 year old male with history of HTN, Atrial fibrillation (stopped Eliquis some time ago due to financial circumstances), DM 2, presented to Ed for willa removal from scalp after sustaining HI due to fall 06/09/19, found to have SOB ( worse on exertion) and LE edema. 1. Acute CHF decompensation ?systolic versus diastolic Echo requested CXR - some BNP 1196 Duplex LEs - no DVT, soft tissue swelling Responding to IV Lasix diuresis. On 40mg oral Lasix at home. Will increase to 40mg daily IVP. Cardiology consulted - recommend resuming Eliquis. ASA held. CM to assist with social/economic issues preventing access to the drug. Daily weight, I and Os, renal function monitoring. 2. Atrial fibrillation continue Digoxin, Diltiazem. Started on Eliquis. 3. HTN - continue Lisinopril and Digoxin. 4. DM 2 - maintain on Novolog sliding scale. 5. HLD - continue Lipitor 6. RML density on CXR - for CT Chest DVT Px - started on Eliquis.
--- NOTE | 2019-06-16 15:06 | PN ---
Physical Exam: SUBJECTIVE: Patient seen and examined. No c/o overnight. Pt is afebrile and asymtpomatic. No further issues or c/o. Denies f/c/n/v/d/sob, chest pain. OBJECTIVE: Vital Signs Period Temp Pulse Resp BP Sys/Simental Pulse Ox Last 24 Hr 97.4 F-98.8 F 82-95 20-20 116-153/65-89 97-100 GENERAL: The patient is awake, alert, and fully oriented, in no acute distress. EYES: PERRL, extraocular movements intact, NECK: Trachea midline, full range of motion, supple. LUNGS: Breath sounds, mild wheezes b/l, crackles appreciated b/l HEART: Regular rate and irregular rhythm, S1, S2 without murmur, rub or gallop. ABDOMEN: Soft, nontender, nondistended, normoactive bowel sounds, no guarding, EXTREMITIES: 2+ pulses, warm, well-perfused, no edema. NEUROLOGICAL: Normal speech, gait not observed. SKIN: Warm, dry, normal turgor, no rashes or lesions noted Laboratory Results - last 24 hr 06/15/19 06/16/19 06/16/19 21:06 06:16 08:45 WBC 4.5 RBC 3.77 Hgb 11.5 Hct 35.0 MCV 93.0 MCH 30.6 MCHC 32.9 RDW 14.2 Plt Count 207 MPV 8.1 Absolute Neuts (auto) 2.1 Neutrophils % 47.3 D Lymphocytes % 34.4 D Monocytes % 13.4 H Eosinophils % 2.7 Basophils % 2.2 H Nucleated RBC % 0 Sodium Potassium Chloride Carbon Dioxide Anion Gap BUN Creatinine Est GFR (CKD-EPI)AfAm Est GFR (CKD-EPI)NonAf POC Glucometer 95 82 Random Glucose Hemoglobin A1c % Calcium Phosphorus Magnesium Troponin I Digoxin Active Medications Current Medications Apixaban (Eliquis -) 5 mg PO BID [facility] Last Admin: 06/16/19 10:34 Dose: 5 mg Atorvastatin Calcium (Lipitor -) 20 mg PO HS [facility] Last Admin: 06/15/19 21:04 Dose: 20 mg Digoxin (Lanoxin -) 0.125 mg PO DAILY [facility] Last Admin: 06/16/19 10:29 Dose: 0.125 mg Diltiazem HCl (Cardizem Cd -) 120 mg PO DAILY [facility] Last Admin: 06/16/19 10:28 Dose: 120 mg Furosemide (Lasix Injection -) 40 mg IVPUSH DAILY [facility] Lisinopril (Prinivil) 5 mg PO DAILY [facility] Home Medications Medication Instructions Recorded Aspirin [ASA -] 81 mg PO DAILY 06/09/19 Atorvastatin Ca [Lipitor] 20 mg PO HS 06/09/19 Digoxin [Lanoxin -] 0.125 mg PO DAILY 06/09/19 Diltiazem HCl [Diltiazem ER] 120 mg PO DAILY 06/09/19 Furosemide [Lasix -] 40 mg PO DAILY 06/09/19 Lisinopril 5 mg PO DAILY 06/09/19 ASSESSMENT/PLAN: 89 y/o F, pmh of htn, chf, afib not on AC, dm2, presented for chest pain and shortness of breath is admitted for CHF exacerbation #Acute CHF exacerbation likely diastolic due to normal EF and LV function, b/l LE swelling, Rt> left ECHO: mild concentric LVH, normal LV systolic function, EF 60%, LA severely dilated, RA moderate to severely dilated, mild MV thickening, moderate to severe MR, moderate TR, severe Pulmonary HTN, RV systolic pressure >60mmhg, mild aortic sclerosis, mild AR. Duplex- no dvt, soft tissue swelling noted BNP 1196 Daily I&Os IV lasix 40mg IV daily #A-Fib Cardiology recomended holding ASA and starting pt on Eliquis CHADVASc score >3 Will need to get social science manager for eliquis approval on d/c Cont digoxin, diltiazem #HTN continue Lisinopril #DM 2 Novolog sliding scale. #HLD continue Lipitor #RML density seen on CXR CT Chest- pending #Dvt PPx started on Eliquis FEN oral diet-sodium controlled monitor lytes Dispo: f/u CT chest, cont eliquis, speak to social work, endo and pul f/u on d/c Visit type - Emergency Visit Emergency Visit: Yes ED Registration Date: 06/15/19 Care time: The patient presented to the Emergency Department on the above date and was hospitalized for further evaluation of their emergent condition. - New Patient This patient is new to me today: Yes Date on this admission: 06/17/19 - Critical Care Critical Care patient: No - Discharge Referral Referred to [facility] Med P.C.: No ATTENDING PHYSICIAN STATEMENT I saw and evaluated the patient. I reviewed the resident's note and discussed the case with the resident. I agree with the resident's findings and plan as documented. SUBJECTIVE: OBJECTIVE: ASSESSMENT AND PLAN:
[2019-06-16] MEDS: ATORVASTATIN CA 20 MG TABLET (FP) PO SCH (21:35)
[2019-06-17 09:48] LABS: HEMATOCRIT 36.5 % (32.4-45.2); MCH 30.5 pg (25.7-33.7); MCHC 32.8 g/dl (32.0-36.0); MEAN CELL VOLUME 93.2 fl (80-96); MEAN PLT VOLUME 8.5 fl (7.5-11.1); PLATELET COUNT 204 K/MM3 (134-434); RBC 3.91 M/mm3 (3.60-5.2); RDW 13.9 % (11.6-15.6); WHITE BLOOD COUNT 4.6 K/mm3 (4.0-10.0)
[2019-06-17] MEDS: DIGOXIN 0.125 MG TABLET (FP) PO SCH (09:50)
[2019-06-17] MEDS: APIXABAN 5 MG TABLET PO SCH (09:50)
[2019-06-17] MEDS: LISINOPRIL 5 MG TABLET (FP) PO SCH (09:50)
[2019-06-17 09:51] VITALS: BP 130/84; TEMP 98.2
[2019-06-17 09:52] VITALS: PULSE 84
[2019-06-17] MEDS ORDERED: FUROSEMIDE 40 MG/4 ML INJECTABLE VIAL IVPUSH SCH (10:00)
[2019-06-17 10:05] LABS: ALBUMIN 3.6 g/dl (3.4-5.0); BILIRUBIN,TOTAL 1.2 mg/dL (0.2-1); BLOOD UREA NITROGEN 27.6 mg/dL (7-18); CALCIUM 9.4 mg/dL (8.5-10.1); CREATININE 1.3 mg/dL (0.55-1.3); TOT PROT 6.8 g/dl (6.4-8.2)
--- NOTE | 2019-06-17 12:10 | PN ---
Teaching Attending Note Name of Resident: Tom Richardson ATTENDING PHYSICIAN STATEMENT I saw and evaluated the patient. I reviewed the resident's note and discussed the case with the resident. I agree with the resident's findings and plan as documented. SUBJECTIVE: Feeling well, dyspnea resolved. OBJECTIVE: Afebrile, Hemodynamically Stable. Last Vital Signs Temp Pulse Resp BP Pulse Ox 98.2 F 84 20 130/84 97 06/17/19 09:50 06/17/19 09:50 06/17/19 09:50 06/17/19 09:50 06/16/19 21:00 HEENT - R parietal lesion healed, sutures removed Heart - S1, S2, RRR Lungs - clear to auscultation, mild decrease in basal air entry Abdomen - soft, non-tender. Bowel sounds normal. Extremities - mild pitting edema, no calf tenderness. Laboratory Results - last 24 hr 06/16/19 06/16/19 06/16/19 13:19 16:39 21:32 WBC RBC Hgb Hct MCV MCH MCHC RDW Plt Count MPV Sodium Potassium Chloride Carbon Dioxide Anion Gap BUN Creatinine Est GFR (CKD-EPI)AfAm Est GFR (CKD-EPI)NonAf POC Glucometer 123 105 123 Random Glucose Calcium Total Bilirubin AST ALT Alkaline Phosphatase Total Protein Albumin 06/17/19 06/17/19 06/17/19 06:55 08:35 08:35 WBC 4.6 RBC 3.91 Hgb 12.0 Hct 36.5 MCV 93.2 MCH 30.5 MCHC 32.8 RDW 13.9 Plt Count 204 MPV 8.5 Sodium 139 Potassium 4.0 Chloride 101 Carbon Dioxide 33 H Anion Gap 4 L BUN 27.6 H Creatinine 1.3 Est GFR (CKD-EPI)AfAm 42.72 Est GFR (CKD-EPI)NonAf 36.86 POC Glucometer 80 Random Glucose 87 Calcium 9.4 Total Bilirubin 1.2 H AST 17 ALT 30 Alkaline Phosphatase 79 Total Protein 6.8 Albumin 3.6 06/17/19 12:02 WBC RBC Hgb Hct MCV MCH MCHC RDW Plt Count MPV Sodium Potassium Chloride Carbon Dioxide Anion Gap BUN Creatinine Est GFR (CKD-EPI)AfAm Est GFR (CKD-EPI)NonAf POC Glucometer 108 Random Glucose Calcium Total Bilirubin AST ALT Alkaline Phosphatase Total Protein Albumin Current Medications Generic Name Dose Route Start Last Admin Trade Name Freq PRN Reason Stop Dose Admin Apixaban 5 mg 06/15/19 22:00 06/17/19 09:50 Eliquis - PO 5 mg BID BETINA Administration Atorvastatin Calcium 20 mg 06/15/19 22:00 06/16/19 21:35 Lipitor - PO 20 mg HS BETINA Administration Digoxin 0.125 mg 06/16/19 10:00 06/17/19 09:50 Lanoxin - PO 0.125 mg DAILY BETINA Administration Diltiazem HCl 120 mg 06/16/19 10:00 06/17/19 09:50 Cardizem Cd - PO 120 mg DAILY BETINA Administration Furosemide 40 mg 06/17/19 10:00 06/17/19 10:38 Lasix Injection - IVPUSH 40 mg DAILY BETINA Administration Lisinopril 5 mg 06/16/19 10:00 06/17/19 09:50 Prinivil PO 5 mg DAILY BETINA Administration Home Medications Medication Instructions Recorded Aspirin [ASA -] 81 mg PO DAILY 06/09/19 Atorvastatin Ca [Lipitor] 20 mg PO HS 06/09/19 Digoxin [Lanoxin -] 0.125 mg PO DAILY 06/09/19 Diltiazem HCl [Diltiazem ER] 120 mg PO DAILY 06/09/19 Furosemide [Lasix -] 40 mg PO DAILY 06/09/19 Lisinopril 5 mg PO DAILY 06/09/19 Albuterol Sulfate [Albuterol 2 puff PO Q4H PRN 06/16/19 Sulfate Hfa] Apixaban [Eliquis] 5 mg PO BID 30 Days #60 tablet 06/17/19 ASSESSMENT/PLAN 89 year old male with history of HTN, Atrial fibrillation (stopped Eliquis some time ago due to financial circumstances), DM 2, presented to Ed for willa removal from scalp after sustaining HI due to fall 06/09/19, found to have SOB ( worse on exertion) and LE edema. 1. Acute CHF decompensation ?systolic versus diastolic - sec to non-compliance with home Lasix. Echo - moderate to severe MR LVH, severe Pul HTN, EF 55% CXR - Cardiomegaly, RML opacity BNP 1196 Duplex LEs - no DVT, soft tissue swelling Responded well to IV Lasix diuresis - to resume home Lasix 40mg on discharge. Daily weight, I and Os, renal function monitoring. 2. Atrial fibrillation Continue Digoxin, Diltiazem. Cardiology consulted - recommend resuming Eliquis. ASA held. CM to assist with social/economic issues preventing access to Eliquis. 3. HTN - continue Lisinopril and Digoxin. 4. DM 2 - maintain on Novolog sliding scale. 5. HLD - continue Lipitor 6. RML density on CXR - CT Chest shows 7mm nodule - needs [address] and Pulm out-patient referral. 7. L Thyroid Goiter - for outpatient US and PCP follow up. DVT Px - started on Eliquis.
--- NOTE | 2019-06-17 13:06 | PN ---
Progress Note (short form) - Note Progress Note: s: no cp palps dizzy, still with some arroyo Current Medications Generic Name Dose Route Start Last Admin Trade Name Renetta PRN Reason Stop Dose Admin Apixaban 5 mg 06/15/19 22:00 06/17/19 09:50 Eliquis - PO 5 mg BID BETINA Administration Atorvastatin Calcium 20 mg 06/15/19 22:00 06/16/19 21:35 Lipitor - PO 20 mg HS BETINA Administration Digoxin 0.125 mg 06/16/19 10:00 06/17/19 09:50 Lanoxin - PO 0.125 mg DAILY BETINA Administration Diltiazem HCl 120 mg 06/16/19 10:00 06/17/19 09:50 Cardizem Cd - PO 120 mg DAILY BETINA Administration Furosemide 40 mg 06/17/19 10:00 06/17/19 10:38 Lasix Injection - IVPUSH 40 mg DAILY BETINA Administration Lisinopril 5 mg 06/16/19 10:00 06/17/19 09:50 Prinivil PO 5 mg DAILY BETINA Administration Vital Signs Period Temp Pulse Resp BP Sys/Simental Pulse Ox Last 24 Hr 98.0 F-98.8 F 79-89 20-20 105-137/68-84 97 Constitutional: Yes: No Distress, Calm Respiratory: Yes: Other (decreased breath sounds bases) Gastrointestinal: Yes: Soft Cardiovascular: Yes: Pulse Irregular JVD: Yes Heart Sounds: Yes: S1, S2 (irreg) Edema: 1+ le edema bl Neurological: Yes: Alert - Other Data Labs, Other Data: CBC, BMP 06/17/19 08:35 06/17/19 08:35 echo 05/2019: nl lv/rv, mod-sev mr, sev phtn Imaging - Results EKG: Image Reviewed Assessment/Plan IMP: Acute on chronic CHF, mild exacerbation- unknown type (Syst vs diast) AF HTN REC: 1. Agree to resume AC as [id number] score merits AC. Will need to involve social work/caseworker intake to see if she can obtain Eliquis as outpatient. 2. Can d/c ASA while on Eliquis. 3. Vol status improving but still with arroyo, not at baseline yet. Cont w/ IV Lasix/ daily weights/daily BMP to monitor renal fx 4. Echo here shows nl lvef, mod-sev mr, sev phtn. Would repeat echo as outpt after vol status improved. 5. Cont Cardize,/digoxin/Lisinopril
--- NOTE | 2019-06-17 13:56 | DS ---
Physical Exam: SUBJECTIVE: Patient seen and examined. No c/o overnight. Pt is afebrile and asymtpomatic. No further issues or c/o. Denies f/c/n/v/d/sob, chest pain. OBJECTIVE: Vital Signs Period Temp Pulse Resp BP Sys/Simental Pulse Ox Last 24 Hr 98.0 F-98.8 F 79-89 20-20 105-137/68-84 97 PHYSICAL EXAM GENERAL: The patient is awake, alert, and fully oriented, in no acute distress. EYES: PERRL, extraocular movements intact, NECK: Trachea midline, full range of motion, supple. LUNGS: Breath sounds, mild wheezes b/l, crackles appreciated b/l HEART: Regular rate and irregular rhythm, S1, S2 without murmur, rub or gallop. ABDOMEN: Soft, nontender, nondistended, normoactive bowel sounds, no guarding, EXTREMITIES: 2+ pulses, warm, well-perfused, no edema. NEUROLOGICAL: Normal speech, gait not observed. SKIN: Warm, dry, normal turgor, no rashes or lesions noted LABS Laboratory Results - last 24 hr 06/17/19 06/17/19 06/17/19 08:35 08:35 12:02 WBC 4.6 RBC 3.91 Hgb 12.0 Hct 36.5 MCV 93.2 MCH 30.5 MCHC 32.8 RDW 13.9 Plt Count 204 MPV 8.5 Sodium 139 Potassium 4.0 Chloride 101 Carbon Dioxide 33 H Anion Gap 4 L BUN 27.6 H Creatinine 1.3 Est GFR (CKD-EPI)AfAm 42.72 Est GFR (CKD-EPI)NonAf 36.86 POC Glucometer 108 Random Glucose 87 Calcium 9.4 Total Bilirubin 1.2 H AST 17 ALT 30 Alkaline Phosphatase 79 Total Protein 6.8 Albumin 3.6 Current Medications Apixaban (Eliquis -) 5 mg PO BID [facility] Last Admin: 06/17/19 09:50 Dose: 5 mg Atorvastatin Calcium (Lipitor -) 20 mg PO HS [facility] Last Admin: 06/16/19 21:35 Dose: 20 mg Digoxin (Lanoxin -) 0.125 mg PO DAILY [facility] Last Admin: 06/17/19 09:50 Dose: 0.125 mg Diltiazem HCl (Cardizem Cd -) 120 mg PO DAILY [facility] Last Admin: 06/17/19 09:50 Dose: 120 mg Furosemide (Lasix Injection -) 40 mg IVPUSH DAILY [facility] Last Admin: 06/17/19 10:38 Dose: 40 mg Lisinopril (Prinivil) 5 mg PO DAILY [facility] Last Admin: 06/17/19 09:50 Dose: 5 mg Home Medications Medication Instructions Recorded Aspirin [ASA -] 81 mg PO DAILY 06/09/19 Atorvastatin Ca [Lipitor] 20 mg PO HS 06/09/19 Digoxin [Lanoxin -] 0.125 mg PO DAILY 06/09/19 Diltiazem HCl [Diltiazem 24Hr ER] 120 mg PO DAILY 06/09/19 Furosemide [Lasix -] 40 mg PO DAILY 06/09/19 Lisinopril 5 mg PO DAILY 06/09/19 Albuterol Sulfate [Albuterol 2 puff PO Q4H PRN 06/16/19 Sulfate Hfa] Apixaban [Eliquis] 5 mg PO BID 30 Days #60 tablet 06/17/19 HOSPITAL COURSE: Date of Admission:06/15/19 89 y/o F, pmh of htn, chf, afib not on AC, dm2, presented for chest pain and shortness of breath is admitted for CHF exacerbation. Pt was seen in the ED for willa removal after being discharged a week ago for laceration to the head. During the staple removal, she experienced chest pain, palpitations and SOB 2/2 to fluid overload. Her BNP 1196, her ECHO showed mild concentric LVH, normal LV systolic function, EF 60%, LA severely dilated, RA moderate to severely dilated , mild MV thickening, moderate to severe MR, moderate TR, severe Pulmonary HTN, RV systolic pressure >60mmhg, mild aortic sclerosis, mild AR. CXR showed prominent fullness of zahra, with density in R. mid lung. She was started on IV 40 lasix, her home med Diltiazem 120 and her home med Digoxin. Her symptoms improved significantly and she was started on Eliquis by cardiology and ASA was stopped. On CAT scan of her chest, showed 7mm nodule, severe pulmonary htn, Left thyroid goiter, and cardiomegaly. Pt was advised to get a CAT scan of the chest in 3 months and a US of the thyroid with her PCP as well. Pt is noncompliant and was encouraged to continue Lasix at home. Pt was discharged home on Eliquis w/ f/u with pulmonary for her right lung nodule and severe pulmonary hypertension, f/u with cardio for her new medication adjustments, f/u with her PCP for US and CAT scan. EKG shows Afib, 87 bpm, QTc: 409 and nonspecific T-wave abnormalities ECHO: mild concentric LVH, normal LV systolic function, EF 60%, LA severely dilated, RA moderate to severely dilated, mild MV thickening, moderate to severe MR, moderate TR, severe Pulmonary HTN, RV systolic pressure >60mmhg, mild aortic sclerosis, mild AR. Duplex- no dvt, soft tissue swelling noted CHADVASc score >3 CAT scan of her chest, showed 7mm nodule, severe pulmonary htn, Left thyroid goiter, and cardiomegaly CXR showed prominent fullness of zahra, with density in R. mid lung Date of Discharge: 06/17/19 Minutes to complete discharge: 40 Discharge Summary Problems reviewed: Yes Reason For Visit: ACUTE ON CHRONIC CHF Current Active Problems A-fib (Chronic) Condition: Good - Instructions Diet, Activity, Other Instructions: You were admitted to the hospital for shortness of breath and palpitations While in the hospital, we evaluated you with lab work, blood work, imaging including an Echo-cardiogram of your heart. We found that your symptoms were likely caused by an exacerbation of your congestive heart failure. We treated you with medications and your symptoms improved significantly. We have made some changes to your medication. It is important that your take the following medications as instructed in order to prevent blood clots from forming, please take: Eliquis 5 mg twice a day, everyday. Please continue taking your Lasix in order to prevent future exacerbations of your symptoms. We found abnormalities on imaging of your lung, which include Right lung nodule and severe pulmonary hypertension. You will need to follow up with the [employer] Worker to further investigate these findings and monitor it. You will need a CAT scan of your Chest in 3 months We also found an abnormal finding, a Goiter, on imaging of your thyroid. You will also need an Ultrasound of your thyroid to monitor these findings. Please discuss having this done with your Primary Care Physician. Please take all your medications as prescribed Please follow up in 1 week with the [employer] Worker, Dr. Gutierrez in order to monitor the abnormalities we found on your chest imaging. Please follow up with your laboratory supervisor or the one we have provided, Dr. Win in order to make any adjustments to your medications, within 1 week Please follow up with your primary care physician or the one we have provided, within 1 week. Return to the emergency room, if you experience worsening of your symptoms, chest pain, shortness of breath, headaches, or any worsening of your condition. Referrals: Josafat Gutierrez MD [Staff Physician] - 1 Week Joey Win MD [Staff Physician] - 1 Week Julia Sheldon MD [Staff Physician] - 1 Week Disposition: HOME - Home Medications Comprehensive Discharge Medication List: Ambulatory Orders Aspirin [ASA -] 81 mg PO DAILY 06/09/19 Atorvastatin Ca [Lipitor] 20 mg PO HS 06/09/19 Digoxin [Lanoxin -] 0.125 mg PO DAILY 06/09/19 Diltiazem HCl [Diltiazem 24Hr ER] 120 mg PO DAILY 06/09/19 Furosemide [Lasix -] 40 mg PO DAILY 06/09/19 Lisinopril 5 mg PO DAILY 06/09/19 Albuterol Sulfate [Albuterol Sulfate Hfa] 2 puff PO Q4H PRN 06/16/19 Apixaban [Eliquis] 5 mg PO BID 30 Days #60 tablet 06/17/19 This patient is new to me today: Yes Date on this admission: 06/21/19 Emergency Visit: Yes ED Registration Date: 06/15/19 Care time: The patient presented to the Emergency Department on the above date and was hospitalized for further evaluation of their emergent condition. Critical Care patient: No - Discharge Referral Referred to [facility] Med [facility] No ATTENDING PHYSICIAN STATEMENT I saw and evaluated the patient. I reviewed the resident's note and discussed the case with the resident. I agree with the resident's findings and plan as documented. SUBJECTIVE: OBJECTIVE: ASSESSMENT AND PLAN:
== END 2019-06-17 15:24 | disposition home or self-care (01) | DRG 293 ==
LOC: JER 11:54 → JERBED 15:17 → J5S 18:45
DX: I11.0 Hypertensive heart disease with heart failure (principal); E11.9 Type 2 diabetes mellitus without complications; I50.43 Acute on chronic combined systolic (congestive) and diastolic (congestive) heart failure; E78.5 Hyperlipidemia, unspecified; I48.91 Unspecified atrial fibrillation; E66.9 Obesity, unspecified; Z68.29 Body mass index [BMI] 29.0-29.9, adult; I27.20 Pulmonary hypertension, unspecified; E04.8 Other specified nontoxic goiter; R91.1 Solitary pulmonary nodule; Z91.14 Patient's other noncompliance with medication regimen
CPT/HCPCS: 36415; 71046-TC-FY; 71250-TC; 80048; 80053; 80162; 82550; 82962; 83036; 83735; 83880; 84100; 84484; 85025; 85027; 85610; 85730; 93005; 93010; 93306-TC; 93970-TC; 99283-25

== ENCOUNTER 2019-07-04 02:52 | Emergency (ER) | payer BC, OTHER ==
[2019-07-04 03:19] VITALS: BMI 28.5
[2019-07-04 04:44] LABS: BASO % 0.6 % (0-2.0); EOS % 5.4 % (0-4.5); HEMATOCRIT 33.9 % (32.4-45.2); LYMPH % 22.4 % (8-40); MCH 30.5 pg (25.7-33.7); MCHC 32.6 g/dl (32.0-36.0); MEAN CELL VOLUME 93.7 fl (80-96); MEAN PLT VOLUME 8.7 fl (7.5-11.1); MONO % 12.1 % (3.8-10.2); NEUT % 59.5 % (42.8-82.8); PLATELET COUNT 174 K/MM3 (134-434); RBC 3.61 M/mm3 (3.60-5.2); WHITE BLOOD COUNT 5.4 K/mm3 (4.0-10.0)
--- NOTE | 2019-07-04 04:52 | PDOC ---
Attending Attestation - Resident Resident Name: TerrellDenis - ED Attending Attestation I have performed the following: I have examined & evaluated the patient, The case was reviewed & discussed with the resident, I agree w/resident's findings & plan, Exceptions are as noted - HPI HPI: 07/04/19 04:51 89yoF hx of HTN, af on elequis presnets w/ episode of chest pain approx 30 min [employer]. Pt states that pain lasted approx 2 min and then spont resolved, possbily associated w/ some sob -- states that her breathing is always problematic and that she has been noncompliant w/ her lasix x 2 days and her digoxin x months 2/ 2 difficulty establishing medical care here in [place]. - Physicial Exam PE: 07/04/19 05:02 nad, well appearing rrr ctabl soft ntnd 2+ b/l pitting edema rle>lle A&O x 3 - Medical Decision Making 07/04/19 05:03 89yoF w/ episode of chest pain/pressures x 2 mintues while watching TV tonight, sponateously resolved. Pt w/ cardaic medication noncompliance. - labs - ekg - cxr - night monitor - reeval,likely admit. minimum 2tn .
[2019-07-04 05:47] LABS: ALBUMIN 3.6 g/dl (3.4-5.0); BILIRUBIN,TOTAL 0.5 mg/dL (0.2-1); BLOOD UREA NITROGEN 31.4 mg/dL (7-18); CREATININE 1.2 mg/dL (0.55-1.3); POTASSIUM 5.3 mmol/L (3.5-5.1); TOT PROT 6.7 g/dl (6.4-8.2)
--- NOTE | 2019-07-04 06:51 | PDOC ---
History of Present Illness - General Chief Complaint: Chest Pain Stated Complaint: CHEST PAIN Time Seen by Provider: 07/04/19 03:42 History Source: Patient Exam Limitations: No Limitations - History of Present Illness Initial Comments: 07/04/19 06:53 89 y/o F, pmh of htn, chf, afib not on AC, dm2 presents to the ED for CP last night. Pt reports watching TV in her chair at 2 am last night with sudden onset sharp CP that was severe lasting for 2 min and resolved. Pt denies exertional CP , plueritic CP, N/V, diaphoresis, SOB, back pain, abdominal pain, F/C, recent travel/illness, calf tenderness, new swelling. Past History - Past Medical History Allergies/Adverse Reactions: Allergies Allergy/AdvReac Type Severity Reaction Status Date / Time No Known Allergies Allergy Verified 07/04/19 03:16 Home Medications: Ambulatory Orders Aspirin [ASA -] 81 mg PO DAILY 06/09/19 Atorvastatin Ca [Lipitor] 20 mg PO HS 06/09/19 Digoxin [Lanoxin -] 0.125 mg PO DAILY 06/09/19 Diltiazem HCl [Diltiazem 24Hr ER] 120 mg PO DAILY 06/09/19 Furosemide [Lasix -] 40 mg PO DAILY 06/09/19 Lisinopril 5 mg PO DAILY 06/09/19 Albuterol Sulfate [Albuterol Sulfate Hfa] 2 puff PO Q4H PRN 06/16/19 Apixaban [Eliquis] 5 mg PO BID 30 Days #60 tablet 06/17/19 Cardiac Disorders: Yes (atrial fib) COPD: No HTN: Yes Hypercholesterolemia: Yes - Immunization History Immunization Up to Date: No - Psycho Social/Smoking Cessation Hx Smoking History: Never smoked Have you smoked in the past 12 months: No Information on smoking cessation initiated: No Hx Alcohol Use: No Drug/Substance Use Hx: No Substance Use Type: None Hx Substance Use Treatment: No Review of Systems - Review of Systems Constitutional: No: Chills, Fever HEENTM: No: Blurred Vision, Double Vision Respiratory: No: Shortness of Breath Cardiac (ROS): Yes: Edema. No: Chest Pain (resolved) ABD/GI: No: Constipated, Diarrhea, Nausea, Vomiting : No: Burning, Dysuria, Flank Pain, Hematuria Musculoskeletal: No: Back Pain Neurological: No: Headache, Numbness, Paresthesia, Weakness, Unsteady Gait *Physical Exam - Vital Signs Last Vital Signs Temp Pulse Resp BP Pulse Ox 97.8 F 73 17 125/81 98 07/04/19 03:20 07/04/19 03:20 07/04/19 03:20 07/04/19 03:20 07/04/19 03:20 - Physical Exam General Appearance: Yes: Nourished, Appropriately Dressed. No: Apparent Distress HEENT: positive: EOMI Neck: positive: Supple. negative: Carotid bruit Respiratory/Chest: positive: Lungs Clear, Normal Breath Sounds. negative: Respiratory Distress, Accessory Muscle Use, Crackles, Rales, Rhonchi, Stridor, Wheezing Cardiovascular: positive: Regular Rhythm, Regular Rate, S1, S2. negative: Edema , JVD, Murmur Vascular Pulses: Dorsalis-Pedis (R): 4+, Doralis-Pedis (L): 4+ Gastrointestinal/Abdominal: positive: Flat, Soft. negative: Pulsatile Mass, Protuberent, Distended, Guarding, Rebound, Tenderness Musculoskeletal: negative: CVA Tenderness Integumentary: positive: Normal Color, Dry, Warm Neurologic: positive: Fully Oriented, Alert, Normal Mood/Affect, Normal Response Heart Score/ECG Review - History History: Slightly suspicious - Electrocardiogram EKG: Normal - Age Age: >/= 65 - Risk Factors Risk Factors Heart Score: Yes Hx Hypertension, Yes Hx Diabetes Based on the list above the patient has:: 1-2 risk factors - Troponin Troponin: </= normal limit - Score Heart Score - Total: 3 ED Treatment Course - LABORATORY CBC & Chemistry Diagram: 07/04/19 04:30 07/04/19 04:30 - ADDITIONAL ORDERS Additional order review: Laboratory Results 07/04/19 07/04/19 07/04/19 04:30 04:30 04:30 Sodium 139 Potassium 5.3 H Chloride 106 Carbon Dioxide 29 Anion Gap 4 L BUN 31.4 H Creatinine 1.2 Est GFR (CKD-EPI)AfAm 47.06 Est GFR (CKD-EPI)NonAf 40.60 Random Glucose 96 Calcium 9.0 Total Bilirubin 0.5 AST 20 ALT 22 Alkaline Phosphatase 74 Creatine Kinase 96 Cancelled Troponin I 0.02 Cancelled B-Natriuretic Peptide Cancelled 1306.0 H Total Protein 6.7 Albumin 3.6 07/04/19 04:30 RBC 3.61 MCV 93.7 MCHC 32.6 RDW 14.0 MPV 8.7 Neutrophils % 59.5 D Lymphocytes % 22.4 D Monocytes % 12.1 H Eosinophils % 5.4 H D Basophils % 0.6 Medical Decision Making - Medical Decision Making 07/04/19 07:17 89 y/o F, pmh of htn, chf (on lasix, did not take today), afib on AC (did not take today), dm2 presents to the ED for CP last night. Pt reports watching TV in her chair at 2 am last night with sudden onset sharp CP that was severe lasting for 2 min and resolved. Pt denies exertional CP, plueritic CP, N/V, diaphoresis, SOB, back pain, abdominal pain, F/C, recent travel/illness, calf tenderness, new swelling. vitals WNL Heart score 3 Pt well appearing, NAD, denies CP and symptoms resolved EKG shows A fib without acute ischemic changes Cardiac workup Pt denies taking lasix and eliquis today. BNP elevated, will home dose lasix. No crackles or SOB Pt requesting to be sent home and feels well Neg trop, will do 2nd trop and likely DC home S/O to day team for Dispo Discharge - Discharge Information Problems reviewed: Yes Clinical Impression/Diagnosis: Chest pain Qualifiers: Chest pain type: unspecified Qualified Code(s): R07.9 - Chest pain, unspecified Condition: Fair - Follow up/Referral - Patient Discharge Instructions - Post Discharge Activity
[2019-07-04] MEDS ORDERED: FUROSEMIDE 40 MG TABLET (FP) PO ONE (06:53)
--- NOTE | 2019-07-04 07:27 | PDOC ---
*Physical Exam - Vital Signs Last Vital Signs Temp Pulse Resp BP Pulse Ox 97.8 F 73 17 125/81 98 07/04/19 03:20 07/04/19 03:20 07/04/19 03:20 07/04/19 03:20 07/04/19 03:20 - Physical Exam General Appearance: Yes: Nourished, Appropriately Dressed, Obese HEENT: positive: EOMI, MACEY, Normal ENT Inspection, Normal Voice, Symmetrical, Pharynx Normal. negative: Scleral Icterus (R), Scleral Icterus (L) Neck: positive: Trachea midline, Normal Thyroid, Supple. negative: Tender, Rigid, Lymphadenopathy (R), Lymphadenopathy (L) Respiratory/Chest: positive: Lungs Clear, Normal Breath Sounds. negative: Chest Tender, Respiratory Distress, Accessory Muscle Use, Crackles, Rales, Rhonchi, Stridor, Wheezing Cardiovascular: positive: Irregularly Irregular. negative: Murmur Gastrointestinal/Abdominal: positive: Normal Bowel Sounds, Soft, Protuberent. negative: Tender, Organomegaly, Guarding, Rebound Musculoskeletal: positive: Normal Inspection. negative: CVA Tenderness Extremity: positive: Normal Capillary Refill, Normal Inspection, Normal Range of Motion, Pelvis Stable, Pedal Edema (2+), Swelling. negative: Tender, Calf Tenderness Integumentary: positive: Normal Color, Dry, Warm Neurologic: positive: Fully Oriented, Alert, Normal Mood/Affect, Normal Response , Motor Strength 5/5 ED Treatment Course - LABORATORY CBC & Chemistry Diagram: 07/04/19 04:30 07/04/19 04:30 - ADDITIONAL ORDERS Additional order review: Laboratory Results 07/04/19 07/04/19 07/04/19 04:30 04:30 04:30 Sodium 139 Potassium 5.3 H Chloride 106 Carbon Dioxide 29 Anion Gap 4 L BUN 31.4 H Creatinine 1.2 Est GFR (CKD-EPI)AfAm 47.06 Est GFR (CKD-EPI)NonAf 40.60 Random Glucose 96 Calcium 9.0 Total Bilirubin 0.5 AST 20 ALT 22 Alkaline Phosphatase 74 Creatine Kinase 96 Cancelled Troponin I 0.02 Cancelled B-Natriuretic Peptide Cancelled 1306.0 H Total Protein 6.7 Albumin 3.6 07/04/19 04:30 RBC 3.61 MCV 93.7 MCHC 32.6 RDW 14.0 MPV 8.7 Neutrophils % 59.5 D Lymphocytes % 22.4 D Monocytes % 12.1 H Eosinophils % 5.4 H D Basophils % 0.6 Medical Decision Making - Medical Decision Making 07/04/19 07:22 Signed out to me by Dr. Tejada. 89F with PMH AFIB on Eliquis, T2DM, CHF on Lasix, presents with chest pain at rest while watching TV. Sharp pain, lasted ~2 minutes then resolved on its own. No radiation, no diaphoresis, no other sx. Per night team, HEART=3, low suspicion of true ACS. ECG poor quality, AFIB, HR 60, QRS 92, QTc 608, no obvious ischemic changes or TWI. Initial trops negative. Plan per prior team to 2-trop and discharge home. K 5.3, BNP 1300 but has not taken AM Lasix, home dose ordered while pending labs. CXR shows tracheal deviation 2/2 enlarged thyroid, no acute cardiopulmonary pathology. [X] labs [X] ECG [X] CXR [] 2nd trop [] Lasix [] dispo 07/04/19 08:45 Given AM Lasix. Says that chest pain is long gone on re-eval. 07/04/19 09:14 2nd trop negative. 2nd ECG shows Afib with HR 84, QRS 92, QTc 490, no obvious ST elevations or TWI. Patient stable for discharge home with cardiology f/u. Discharge - Discharge Information Problems reviewed: Yes Clinical Impression/Diagnosis: Chest pain Qualifiers: Chest pain type: unspecified Qualified Code(s): R07.9 - Chest pain, unspecified Condition: Fair Disposition: HOME - Follow up/Referral Referrals: Wilfredo Ramos MD [Staff Physician] - - Patient Discharge Instructions Patient Printed Discharge Instructions: DI for Chest Pain Additional Instructions: Today you were evaluated for chest pain. Your labs show no evidence of infection or heart attack. Your ECG and chest x-ray do not show any worsening heart disease or heart attack. Your chest pain is likely either muscle pain or related to reflux. However, you should still go see a direct support staff member for further evaluation in the next 7 days for further care and a referral has been given, and also make an appointment to see your primary doctor in the next 3 days. At home, avoid any caffeine, spicy foods, or eating too late at night. If you experience worsening chest pain, nausea, vomiting, abdominal pain, or any other new or concerning symptoms, please return to the emergency room. - Post Discharge Activity
[2019-07-04] MEDS ORDERED: FUROSEMIDE 40 MG TABLET (FP) ONE (07:57)
--- NOTE | 2019-07-04 09:24 | EKG ---
Test Reason : Blood Pressure : / mmHG Vent. Rate : 060 BPM Atrial Rate : 039 BPM P-R Int : 000 ms QRS Dur : 092 ms QT Int : 608 ms P-R-T Axes : 000 047 -80 degrees QTc Int : 608 ms ATRIAL FIBRILLATION NONSPECIFIC ST AND T WAVE ABNORMALITY PROLONGED QT ABNORMAL ECG Confirmed by Volodymyr Richter MD ([id number]) on 07/04/2019 9:23:57 AM Referred By: Confirmed By:Volodymyr Richter MD
[2019-07-04 09:31] VITALS: BP 129/66; PULSE 63; TEMP 97.8
--- NOTE | 2019-07-04 14:11 | EKG ---
Test Reason : Blood Pressure : / mmHG Vent. Rate : 084 BPM Atrial Rate : 468 BPM P-R Int : 000 ms QRS Dur : 092 ms QT Int : 390 ms P-R-T Axes : 000 012 001 degrees QTc Int : 460 ms POOR DATA QUALITY, INTERPRETATION MAY BE ADVERSELY AFFECTED ATRIAL FIBRILLATION NONSPECIFIC T WAVE ABNORMALITY ABNORMAL ECG Confirmed by MD Zita, South ([id number]) on 07/04/2019 2:11:00 PM Referred By: Confirmed By:South Ahumada MD
== END 2019-07-04 09:51 | disposition home or self-care (01) ==
LOC: JER 02:52
DX: R07.9 Chest pain, unspecified (principal); I11.0 Hypertensive heart disease with heart failure; I50.9 Heart failure, unspecified; I48.91 Unspecified atrial fibrillation; Z79.01 Long term (current) use of anticoagulants; E11.9 Type 2 diabetes mellitus without complications; E78.00 Pure hypercholesterolemia, unspecified; R79.89 Other specified abnormal findings of blood chemistry
CPT/HCPCS: 36415; 71045-TC-FY; 80053; 82550; 83880; 84484; 85025; 93005; 93010; 99285-25

== ENCOUNTER 2020-03-01 00:50 | Inpatient (IN) | payer OTHER ==
--- NOTE | 2020-03-01 01:49 | PDOC ---
History of Present Illness - General Chief Complaint: Chest Pain Stated Complaint: CHEST PAIN Past History - Medical History Allergies/Adverse Reactions: Allergies Allergy/AdvReac Type Severity Reaction Status Date / Time No Known Allergies Allergy Verified 07/04/19 03:16 Home Medications: Ambulatory Orders Aspirin [ASA -] 81 mg PO DAILY 06/09/19 Atorvastatin Ca [Lipitor] 20 mg PO HS 06/09/19 Digoxin [Lanoxin -] 0.125 mg PO DAILY 06/09/19 Diltiazem HCl [Diltiazem 24Hr ER] 120 mg PO DAILY 06/09/19 Furosemide [Lasix -] 40 mg PO DAILY 06/09/19 Lisinopril 5 mg PO DAILY 06/09/19 Albuterol Sulfate [Albuterol Sulfate Hfa] 2 puff PO Q4H PRN 06/16/19 Apixaban [Eliquis] 5 mg PO BID 30 Days #60 tablet 06/17/19 Cardiac Disorders: Yes (atrial fib) COPD: No Diabetes: Yes HTN: Yes Hypercholesterolemia: Yes - Immunization History Immunization Up to Date: No - Psycho-Social/Smoking History Smoking History: Never smoked Have you smoked in the past 12 months: No - Substance Abuse Hx (Audit-C & DAST Scrn) How often the patient has a drink containing alcohol: Never Score: In Men: 4 or > Positive; In Women: 3 or > Positive: 0 Screen Result (Pos requires Nsg. Audit-10AR): Negative In the last yr the pt used illegal drug/Rx for NonMed reason: No Score: Yes response is considered Positive: 0 Screen Result (Positive result requires Nsg. DAST-10): Negative *Physical Exam - Vital Signs Last Vital Signs Temp Pulse Resp BP Pulse Ox 97.7 F 73 20 128/79 100 03/01/20 01:11 03/01/20 01:11 03/01/20 01:11 03/01/20 01:11 03/01/20 01:11 Discharge - Follow up/Referral Referrals: Dylan Echevarria MD, [Primary Care Provider] - - Patient Discharge Instructions - Post Discharge Activity
--- NOTE | 2020-03-01 02:39 | PDOC ---
Attending Attestation - Resident Resident Name: Sal Lopez - ED Attending Attestation I have performed the following: I have examined & evaluated the patient, The case was reviewed & discussed with the resident, I agree w/resident's findings & plan, Exceptions are as noted - HPI HPI: 03/01/20 06:33 89F pmh DM, HTN, HLD, CHF, AFib on eliquis here with progressive sob, chest discomfort, she noted new bilateral lower extremity swelling as well. Pt is intermittently compliant with diuretics. No other complaints - Physicial Exam PE: 03/07/20 19:57 NAD, AOx3 NCAT, Neck supple PERRL, EOMI LCTAB, no crackles appreciated Irregularly irregular, normal rate Abd soft, nt, nd +FROM, NFD B/L LE edema, L>R, nt, no deformities - Medical Decision Making 03/07/20 19:58 Acute on chronic CHF exacerbation f/u labs, ekg, cxr dispo per clinical course, likely admission for optimization of tx Discharge - Discharge Information Problems reviewed: Yes Clinical Impression/Diagnosis: Chest pain Qualifiers: Chest pain type: unspecified Qualified Code(s): R07.9 - Chest pain, unspecified Condition: Stable Disposition: ASSISTED FACILITY - Follow up/Referral - Patient Discharge Instructions - Post Discharge Activity
[2020-03-01] MEDS ORDERED: FUROSEMIDE 40 MG/4 ML INJECTABLE VIAL IVPUSH ONE ×2 (03:05→08:00)
[2020-03-01 03:07] LABS: BASO % 0.9 % (0-2.0); EOS % 6.1 % (0-4.5); HEMOGLOBIN 11.3 GM/dL (10.7-15.3); LYMPH % 26.5 % (8-40); MCH 31.4 pg (25.7-33.7); MCHC 33.1 g/dl (32.0-36.0); MEAN PLT VOLUME 7.5 fl (7.5-11.1); MONO % 11.6 % (3.8-10.2); NEUT % 54.9 % (42.8-82.8); PLATELET COUNT 172 K/MM3 (134-434); RBC 3.58 M/mm3 (3.60-5.2); RDW 14.3 % (11.6-15.6); WHITE BLOOD COUNT 5.7 K/mm3 (4.0-10.0)
[2020-03-01 03:31] LABS: ALBUMIN 3.6 g/dl (3.4-5.0); BILIRUBIN,TOTAL 0.6 mg/dL (0.2-1); CALCIUM 8.5 mg/dL (8.5-10.1); CREATININE 1.3 mg/dL (0.55-1.3); N-TERMINAL BNP 1001.2 pg/ml (5-450); POTASSIUM 4.9 mmol/L (3.5-5.1); TOT PROT 6.9 g/dl (6.4-8.2)
[2020-03-01 03:33] LABS: INR 1.27 (0.83-1.09)
[2020-03-01 03:36] LABS: ACTIVATED PTT 37.4 SECONDS (25.2-36.5)
--- NOTE | 2020-03-01 04:17 | HP ---
CHIEF COMPLAINT: Dyspnea PCP: HISTORY OF PRESENT ILLNESS: Valentine Richardson is an 89 year old woman with PMH htn, hld, afib on Eliquis, CHF (ECHO in May 2019 EF 55-60%), NIDDM, presenting with worsening dyspnea. She states while watching television last night she dozed off and when she awoke was unable to move her extremities or breathe; the episode resolved within seconds. She states this is the second time this has happened this week, which prompted her to call 911. She reports increasing lower extremity edema over the prior 2 months, and within the past week has had a generalized feeling of 'being unwell' -- describing on and off diffuse chest discomfort 4/10, mild 'achy' abdominal pain. She denies nausea, vomiting, diarrhea, hematochezia, melena. She says she has only been taking Lasix intermittently. Lives in a house with her grandson, she is ambulating with a walker at baseline. ER course was notable for: - Vitals within normal range 97.7, 70 bpm, 119/65, sating at 100% on 2L nasal cannula - Unremarkable CBC - BNP elevated at 1001 - CXR revealing cardiomegaly - Received 20 Lasix PAST MEDICAL HISTORY: Hypertension Hyperlipidemia Afib CHF NIDDM PAST SURGICAL HISTORY: None Social History: Smoking:None Alcohol:None Drugs:None Allergies No Known Allergies Allergy (Verified 07/04/19 03:16) HOME MEDICATIONS: Home Medications Medication Instructions Recorded Aspirin [ASA -] 81 mg PO DAILY 06/09/19 Atorvastatin Ca [Lipitor] 20 mg PO HS 06/09/19 Digoxin [Lanoxin -] 0.125 mg PO DAILY 06/09/19 Diltiazem HCl [Diltiazem 24Hr ER] 120 mg PO DAILY 06/09/19 Furosemide [Lasix -] 40 mg PO DAILY 06/09/19 Lisinopril 5 mg PO DAILY 06/09/19 Albuterol Sulfate [Albuterol 2 puff PO Q4H PRN 06/16/19 Sulfate Hfa] Apixaban [Eliquis] 5 mg PO BID 30 Days #60 tablet 06/17/19 REVIEW OF SYSTEMS SEE HPI PHYSICAL EXAMINATION Vital Signs - 24 hr 03/01/20 03/01/20 01:11 03:26 Temperature 97.7 F Pulse Rate 73 Pulse Rate [ 70 Left Radial] Respiratory 20 20 Rate Blood Pressure 128/79 Blood Pressure 119/68 [Right Arm] O2 Sat by Pulse 100 100 Oximetry (%) GENERAL: Awake, alert, and fully oriented, in no acute distress. HEAD: Normal with no signs of trauma. EYES: Pupils equal, round and reactive to light, extraocular movements intact, sclera anicteric. EARS, NOSE, THROAT: Ears normal, nares patent, oropharynx clear without exudates. NECK: Normal range of motion, supple without lymphadenopathy. LUNGS: Breath sounds equal, clear to auscultation bilaterally. No wheezes, and no crackles. No accessory muscle use. HEART: Irregularly irregular rhythm, normal rate. Without murmur. ABDOMEN: Soft, nontender, not distended, normoactive bowel sounds, no guarding, no rebound, no masses. MUSCULOSKELETAL: Normal range of motion at all joints. No bony deformities or tenderness. No CVA tenderness. LOWER EXTREMITIES: 2+ pulses, warm. B/l LE edema greater on the left side (chronic) to the knees. No calf tenderness. PSYCHIATRIC: Cooperative. Good eye contact. Appropriate mood and affect. SKIN: Warm, dry skin with extensive flaking, irritation in skin folds behind knees. Laboratory Results - last 24 hr 03/01/20 03/01/20 03/01/20 03:00 03:00 03:00 WBC 5.7 RBC 3.58 L Hgb 11.3 Hct 34.0 MCV 95.0 MCH 31.4 MCHC 33.1 RDW 14.3 Plt Count 172 MPV 7.5 D Absolute Neuts (auto) 3.1 Neutrophils % 54.9 Lymphocytes % 26.5 Monocytes % 11.6 H Eosinophils % 6.1 H Basophils % 0.9 Nucleated RBC % 0 PT with INR 15.00 H INR 1.27 H PTT (Actin FS) 37.4 H Sodium 140 Potassium 4.9 Chloride 108 H Carbon Dioxide 28 Anion Gap 5 L BUN 28.0 H Creatinine 1.3 Est GFR (CKD-EPI)AfAm 42.72 Est GFR (CKD-EPI)NonAf 36.86 Random Glucose 93 Calcium 8.5 Total Bilirubin 0.6 AST 21 ALT 24 Alkaline Phosphatase 88 Troponin I 0.02 B-Natriuretic Peptide 1001.2 H Total Protein 6.9 Albumin 3.6 ASSESSMENT/PLAN: Valentine Richardson is an 89 year old woman with PMH htn, hld, afib on Eliquis, CHF (ECHO in May 2019 EF 55-60%), NIDDM, presenting with worsening dyspnea and lower extremity edema, BNP found to be elevated at 1000+, EKG showing atrial fibrillation, being admitted with CHF exacerbation. #Acute on chronic CHF exacerbation - Patient reporting increasing dypsnea, LE edema - CXR revealing cardiomegaly - ECHO obtained 05/2019 revealing EF 55%, with severe pulmonary hypertension and mitral regurgitation - Exacerbation likely secondary to medication non-compliance --pt states she is 'forgetful' when it comes to her meds - Received 20 Lasix in ED - Continue Lasix 40 bid - First troponin negative; trend - Telemetry - Daily weights - Monitor I&Os #Afib - Taking Eliquis at home - EKG in ED: Atrial fibrillation with nonspecific ST and T wave abnormality; QT c: 395 - Determine if she is taking digoxin - CHA2 DS2 -VASc score 6 - F/u repeat am EKG #Type 2 Diabetes - f/u HbA1C - BGM, sliding scale insulin #Hypertension - BP stable on arrival to ED - Medication reconciliation needed #Incontinence - Pt reporting increasing episodes of urinary incontinence - F/u UA results DVT prophylaxis: Eliqius 2.5 bid FEN - No IVF, encourage po intake (limit to 2L/day) - Monitor am labs, K, Mg - Low sodium/diabetic diet Dispo: Tele Family Medical History Family History: As Documented Visit type - Medication Review Med list reviewed for High Risk Meds patients 65 and older: Yes - Emergency Visit Emergency Visit: Yes ED Registration Date: 03/01/20 Care time: The patient presented to the Emergency Department on the above date and was hospitalized for further evaluation of their emergent condition. - New Patient This patient is new to me today: Yes Date on this admission: 03/01/20 - Critical Care Critical Care patient: No ATTENDING PHYSICIAN STATEMENT I saw and evaluated the patient. I reviewed the resident's note and discussed the case with the resident. I agree with the resident's findings and plan as documented. SUBJECTIVE: OBJECTIVE: ASSESSMENT AND PLAN:
--- OUTSIDE RECORDS SUMMARY | 2020-03-01 04:56 | XMS ---
:1930 Author Organization [facility] Support Name Relationship Address Phone RE, RETIRED Unavailable Unavailable Unavailable GLENN MCKINNEY SISTER [address] [facility] [place] [phone] RE Unavailable Unavailable Unavailable EDGARD GALVAN [address] [facility] [place] [address] GLENN MCKINNEY Sister [address] [facility] [place] [address] Re-disclosure Warning The records that you are about to access may contain information from federally- assisted alcohol or drug abuse programs. If such information is present, then the following federally mandated warning applies: This information has been disclosed to you from records protected by federal confidentiality rules (42 CFR part 2). The federal rules prohibit you from making any further disclosure of this information unless further disclosure is expressly permitted by the written consent of the person to whom it pertains or as otherwise permitted by 42 CFR part 2. A general authorization for the release of medical or other information is NOT sufficient for this purpose. The Federal rules restrict any use of the information to criminally investigate or prosecute any alcohol or drug abuse patient.The records that you are about to access may contain highly sensitive health information, the redisclosure of which is protected by Article 27-F of the [facility] Public Health law. If you continue you may haveaccess to information: Regarding HIV / AIDS; Provided by facilities licensed or operated by the [facility] Office of Mental Health; or Provided by the [facility] Office for People With Developmental Disabilities. If such information is present, then the following [facility] mandated warning applies: This information has been disclosed to you from confidential records which are protected by state law. State law prohibits you from making any further disclosure of this information without the specific written consent of the person to whom it pertains, or as otherwise permitted by law. Any unauthorized further disclosure in violation of state law may result in a fine or half-way sentence or both. A general authorization for the release of medical or other information is NOT sufficient authorization for further disclosure. Insurance Providers Payer name Policy type Policy ID Covered Covered alliance party's Policy P isidro / Coverage alliance party ID relationship to Rodriguez Inf ormation type rodriguez AURY CROSS [id number] SP [id number] [facility] PLAN [address] MARK MEDICARE [id number] SP [id number] HIP MEDICARE [id number] SP [id number] VIP 1 OUT OF [id number] SP [id number] [place] [address]
--- OUTSIDE RECORDS SUMMARY | 2020-03-01 04:58 | XMS ---
:1930 Author Organization [facility] Support Name Relationship Address Phone RE, RETIRED Unavailable Unavailable Unavailable GLENN MCKINNEY SISTER [address] [facility] [place] [phone] RE Unavailable Unavailable Unavailable EDGARD GALVAN [address] [facility] [place] [address] GLENN MCKINNEY Sister [address] [facility] [place] [address] Re-disclosure Warning The records that you are [...] is protected by Article 27-F of the [facility] Public Health law. If you continue you may haveaccess to information: Regarding HIV / AIDS; Provided by facilities licensed or operated by the [facility] Office of Mental Health; or Provided by the [facility] Office for People With Developmental Disabilities. If such information is present, then the following [facility] mandated warning applies: This information has been [...] law may result in a fine or senior care sentence or both. A general authorization for the release of medical or other information is NOT sufficient authorization for further disclosure. Insurance Providers Payer name Policy type Policy ID Covered Covered republican's Policy P isidro / Coverage republican ID relationship to Rodriguez Inf ormation type rodriguez AURY CROSS [id number] SP [id number] [facility] PLAN [address] MARK MEDICARE [id number] SP [id number] HIP MEDICARE [id number] SP [id number] VIP 1 OUT OF [id number] SP [id number] [address] [place] [address]
--- NOTE | 2020-03-01 05:27 | PN ---
Teaching Attending Note Name of Resident: Jennifer Magaña ATTENDING PHYSICIAN STATEMENT I saw and evaluated the patient. I reviewed the resident's note and discussed the case with the resident. I agree with the resident's findings and plan as documented. SUBJECTIVE: 89 year old woman with PMH HTN, HLD, Afib on Eliquis, HFpEF (ECHO in May 2019 EF 55-60%), NIDDM, presenting with worsening dyspnea. OBJECTIVE: VS: Afeb BP 128/79 100% on NC 2L Labs: 5.7 WBC H/H WNL Na 140 K 4.9 BUN/Creat 28/1.3 BNP 1001.2 ASSESSMENT AND PLAN: HFpEF HTN HLD Afib Pt does not take medication regularly - possible episodes of Afib w/ RVR causing episodic symptoms if pt non compliant w/ HR controlling medications BNP not significantly elevated from prior Daily weight I/O Monitor K>4 Mg>2 Lasix 40 mg IV BID Resume home medications Eliquis (per cardio note was to d.c. ASA 81 mg) Cardizem, Digoxin and Lisinopril reconcile and resume Tele monitoring for HR Monitor EKG and trop x 3 q 6 Supp care: DVT Px- On eliquis
[2020-03-01] MEDS: INSULIN SLIDING SCALE (NOVOLOG) 1 VIAL SQ SCH ×4 (06:01→22:46)
[2020-03-01] MEDS ORDERED: FUROSEMIDE 40 MG/4 ML INJECTABLE VIAL ONE ×2 (08:06→14:28)
[2020-03-01] MEDS ORDERED: APIXABAN 2.5 MG TABLET ONE (10:09)
[2020-03-01] MEDS: APIXABAN 2.5 MG TABLET PO SCH ×2 (10:10→22:42)
--- NOTE | 2020-03-01 10:31 | EKG ---
Test Reason : Blood Pressure : / mmHG Vent. Rate : 064 BPM Atrial Rate : 441 BPM P-R Int : 000 ms QRS Dur : 092 ms QT Int : 374 ms P-R-T Axes : 000 040 091 degrees QTc Int : 385 ms ATRIAL FIBRILLATION NONSPECIFIC ST AND T WAVE ABNORMALITY ABNORMAL ECG WHEN COMPARED WITH ECG OF 04-JUL-2019 09:04, NONSPECIFIC T WAVE ABNORMALITY NO LONGER EVIDENT IN INFERIOR LEADS NONSPECIFIC T WAVE ABNORMALITY NOW EVIDENT IN LATERAL LEADS QT HAS SHORTENED Confirmed by DEX NUR MD ([id number]) on 03/01/2020 10:31:10 AM Referred By: Confirmed By:DEX NUR MD
--- NOTE | 2020-03-01 14:11 | CON.CARD ---
Consult Consult Specialty:: cardiology Referred by:: lindsay Reason for Consultation:: chf - History of Present Illness Chief Complaint: sob History of Present Illness: 89 year old female with a pmhx of htn, hld, afib on apixaban, dm, and chronic diastolic chf presents when she awoke and for few seconds could not move. REsolved in few seconds also some sob for few seconds. Feels fine since. Also noted some mild leg edema and feeling tired. Does not always take her meds and not taking her furosemide pill. Says she feels well at this time. EKG: afib VR 60s with nonspecific T wave abnormalities CXR no chf/infiltrates bnp 1001 vitals stable with 100% sat - History Source History Provided By: Patient, Medical Record - Past Medical History Cardio/Vascular: Yes: AFIB, CHF, HTN - Alcohol/Substance Use Hx Alcohol Use: No - Smoking History Smoking history: Never smoked Have you smoked in the past 12 months: No - Social History Usual Living Arrangement: Alone History of Recent Travel: No Home Medications - Allergies Allergies/Adverse Reactions: Allergies Allergy/AdvReac Type Severity Reaction Status Date / Time No Known Allergies Allergy Verified 07/04/19 03:16 - Home Medications Home Medications: Ambulatory Orders Aspirin [ASA -] 81 mg PO DAILY 06/09/19 Atorvastatin Ca [Lipitor] 20 mg PO HS 06/09/19 Digoxin [Lanoxin -] 0.125 mg PO DAILY 06/09/19 Diltiazem HCl [Diltiazem 24Hr ER] 120 mg PO DAILY 06/09/19 Furosemide [Lasix -] 40 mg PO DAILY 06/09/19 Lisinopril 5 mg PO DAILY 06/09/19 Albuterol Sulfate [Albuterol Sulfate Hfa] 2 puff PO Q4H PRN 06/16/19 Apixaban [Eliquis] 5 mg PO BID 30 Days #60 tablet 06/17/19 Vital Signs: Vital Signs Temperature 97.7 F 03/01/20 01:11 Pulse Rate 60 03/01/20 07:05 Respiratory Rate 14 03/01/20 07:05 Blood Pressure 121/69 03/01/20 07:05 O2 Sat by Pulse Oximetry (%) 100 03/01/20 07:05 Constitutional: Yes: No Distress Neck: Yes: Supple Respiratory: Yes: CTA Bilaterally Gastrointestinal: Yes: Soft Cardiovascular: Yes: Pulse Irregular JVD: No Carotid Bruit: No PMI: Non-Displaced Heart Sounds: Yes: S1, S2 Edema: LLE: Trace, RLE: Trace - Other Data Labs, Other Data: CBC, BMP 03/01/20 03:00 03/01/20 03:00 INR, PTT INR 1.27 (0.83-1.09) H 03/01/20 03:00 Troponin, BNP 03/01/20 03:00 Troponin I 0.02 B-Natriuretic Peptide 1001.2 H Troponin, BNP 03/01/20 03:00 Troponin I 0.02 B-Natriuretic Peptide 1001.2 H Imaging - Results Chest X-ray: Report Reviewed EKG: Image Reviewed Problem List - Problems (1) A-fib Code(s): I48.91 - UNSPECIFIED ATRIAL FIBRILLATION (2) Acute exacerbation of CHF (congestive heart failure) Code(s): I50.9 - HEART FAILURE, UNSPECIFIED Qualifiers: Heart failure type: unspecified Qualified Code(s): I50.9 - Heart failure, unspecified Assessment/Plan 89 year old female with a pmhx of htn, hld, afib on apixaban, dm, and chronic diastolic chf presents when she awoke and for few seconds could not move. REsolved in few seconds also some sob for few seconds. Feels fine since. Also noted some mild leg edema and feeling tired. Does not always take her meds and not taking her furosemide pill. Says she feels well at this time. EKG: afib VR 60s with nonspecific T wave abnormalities CXR no chf/infiltrates bnp 1001 vitals stable with 100% sat Echocardiogram 06/16/19: nl lvef, mod to sev mr, sev pulm htn 1) Afib Patient on apixaban for AC Would clarify what meds taking. HR's controlled at this moment. Would clarify if she is taking digoxin and diltiazem and if she is continue but if not than hold. 2) Acute on chronic diastolic chf Mild chf exacerbation. Now feels well after lasix. CXR clear, sats good, minimal chf on exam. Would restart furosemide 40mg PO daily and encourage daily use Seems like main issue is medication compliance Consider social work evaluation No further cardiac work up at this time.
[2020-03-01] MEDS: FUROSEMIDE 40 MG/4 ML INJECTABLE VIAL IVPUSH SCH (14:26)
--- NOTE | 2020-03-01 15:17 | PN ---
Progress Note, Physician History of Present Illness: 89 year old woman with PMH htn, hld, afib on Eliquis, CHF (ECHO in May 2019 EF 55-60%), NIDDM, presenting with worsening dyspnea. - Current Medication List Current Medications: Active Medications Apixaban (Eliquis -) 2.5 mg PO BID [facility] Last Admin: 03/01/20 10:10 Dose: 2.5 mg Documented by: Furosemide (Lasix Injection -) 40 mg IVPUSH BID@0600,1400 [facility] Last Admin: 03/01/20 14:26 Dose: 40 mg Documented by: Insulin Aspart (Novolog Vial Sliding Scale -) 1 vial SQ ACHS [facility]; Protocol Last Admin: 03/01/20 11:55 Dose: Not Given Documented by: - Objective Vital Signs: Vital Signs Temperature 97.7 F 03/01/20 01:11 Pulse Rate 59 L 03/01/20 14:35 Respiratory Rate 25 H 03/01/20 14:35 Blood Pressure 115/65 03/01/20 14:35 O2 Sat by Pulse Oximetry (%) 96 03/01/20 14:35 Cardiovascular: Yes: S1, S2 Respiratory: Yes: Diminished, Rales Gastrointestinal: Yes: Normal Bowel Sounds, Soft Edema: No Neurological: Yes: Alert, Oriented Labs: CBC, BMP 03/01/20 03:00 03/01/20 03:00 INR, PTT INR 1.27 (0.83-1.09) H 03/01/20 03:00 Problem List - Problems (1) A-fib Assessment/Plan: cont with eliquis monitor rate compliance discussed Code(s): I48.91 - UNSPECIFIED ATRIAL FIBRILLATION (2) Acute exacerbation of CHF (congestive heart failure) Assessment/Plan: iv lasix cardio consult appreciated follow lytes Code(s): I50.9 - HEART FAILURE, UNSPECIFIED Qualifiers: Heart failure type: unspecified Qualified Code(s): I50.9 - Heart failure, unspecified
[2020-03-01] MEDS ORDERED: INSULIN (NOVOLOG) ASPART 100 UNITS/ML 10ML VIAL ONE (16:38)
[2020-03-02] MEDS: FUROSEMIDE 40 MG/4 ML INJECTABLE VIAL IVPUSH SCH (06:34)
[2020-03-02] MEDS: INSULIN SLIDING SCALE (NOVOLOG) 1 VIAL SQ SCH ×4 (06:37→22:01)
[2020-03-02 08:12] LABS: EOS % 3.8 % (0-4.5); HEMATOCRIT 37.7 % (32.4-45.2); HEMOGLOBIN 12.1 GM/dL (10.7-15.3); LYMPH % 30.8 % (8-40); MCH 30.6 pg (25.7-33.7); MCHC 32.2 g/dl (32.0-36.0); MEAN CELL VOLUME 95.1 fl (80-96); MEAN PLT VOLUME 7.8 fl (7.5-11.1); MONO % 11.1 % (3.8-10.2); NEUT % 53.3 % (42.8-82.8); PLATELET COUNT 205 K/MM3 (134-434); RBC 3.96 M/mm3 (3.60-5.2); RDW 14.5 % (11.6-15.6); WHITE BLOOD COUNT 5.4 K/mm3 (4.0-10.0)
[2020-03-02 08:33] LABS: ALBUMIN 3.6 g/dl (3.4-5.0); BILIRUBIN,TOTAL 0.9 mg/dL (0.2-1); BLOOD UREA NITROGEN 34.2 mg/dL (7-18); CALCIUM 8.8 mg/dL (8.5-10.1); CREATININE 1.6 mg/dL (0.55-1.3); MAGNESIUM 2.1 mg/dL (1.8-2.4); PHOSPHOROUS 4.5 mg/dL (2.5-4.9); POTASSIUM 4.3 mmol/L (3.5-5.1); TOT PROT 7.3 g/dl (6.4-8.2)
[2020-03-02] MEDS: APIXABAN 2.5 MG TABLET PO SCH ×2 (09:16→22:01)
--- NOTE | 2020-03-02 10:41 | PN ---
Progress Note, Physician History of Present Illness: 89 year old woman with PMH htn, hld, afib on Eliquis, CHF (ECHO in May 2019 EF 55-60%), NIDDM, presenting with worsening dyspnea. c/o weakness of left leg--chronic weakness but today feels more - Current Medication List Current Medications: Active Medications Apixaban (Eliquis -) 2.5 mg PO BID [facility] Last Admin: 03/02/20 09:16 Dose: 2.5 mg Documented by: Furosemide (Lasix Injection -) 40 mg IVPUSH BID@0600,1400 [facility] Last Admin: 03/02/20 06:34 Dose: 40 mg Documented by: Insulin Aspart (Novolog Vial Sliding Scale -) 1 vial SQ ACHS [facility]; Protocol Last Admin: 03/02/20 06:37 Dose: Not Given Documented by: - Objective Vital Signs: Vital Signs Temperature 98.0 F 03/02/20 05:55 Pulse Rate 77 03/02/20 05:55 Respiratory Rate 20 03/02/20 05:55 Blood Pressure 136/69 03/02/20 05:55 O2 Sat by Pulse Oximetry (%) 100 03/02/20 05:55 Cardiovascular: Yes: S1, S2 Respiratory: Yes: Regular, CTA Bilaterally Gastrointestinal: Yes: Normal Bowel Sounds, Soft Neurological: Yes: Alert, Oriented, Unsteady Gait, Weakness (left leg) Labs: CBC, BMP 03/02/20 07:25 03/02/20 07:25 INR, PTT INR 1.27 (0.83-1.09) H 03/01/20 03:00 Problem List - Problems (1) A-fib Assessment/Plan: cont with eliquis monitor rate compliance discussed Code(s): I48.91 - UNSPECIFIED ATRIAL FIBRILLATION (2) Acute exacerbation of CHF (congestive heart failure) Assessment/Plan: iv lasix cardio consult appreciated follow lytes Code(s): I50.9 - HEART FAILURE, UNSPECIFIED Qualifiers: Heart failure type: unspecified Qualified Code(s): I50.9 - Heart failure, unspecified (3) Leg weakness Assessment/Plan: neuro consult pt Code(s): R29.898 - OTH SYMPTOMS AND SIGNS INVOLVING THE MUSCULOSKELETAL SYSTEM (4) ELYSSA (acute kidney injury) Assessment/Plan: maybe due to lasix dc iv to po monitor renal Code(s): N17.9 - ACUTE KIDNEY FAILURE, UNSPECIFIED (5) Fall Code(s): W19.XXXA - UNSPECIFIED FALL, INITIAL ENCOUNTER Qualifiers: Encounter type: initial encounter Qualified Code(s): W19.XXXA - Unspecified fall, initial encounter
--- NOTE | 2020-03-02 14:31 | CONSULT ---
Consult Consult Specialty:: Nephrology Reason for Consultation:: ELYSSA - History of Present Illness Chief Complaint: shortness of breath History of Present Illness: Pt is an 89 year old female with pmhx of htn, hld, a-fib, chf, dm who presents to the ER with shortness of breath. I was called to evaluate her for elyssa. She was started on lasix and her breathing improved. She complains of increasing lower ext edema. She also complains of shortness of breath while laying flat. She denies fevers or chills. She denies dysuria or hematuria. She is awake and alert. She does not always taker her lasix. - History Source History Provided By: Patient, Medical Record - Past Medical History Cardio/Vascular: Yes: AFIB, CHF, HTN - Alcohol/Substance Use Hx Alcohol Use: No - Smoking History Smoking history: Never smoked Have you smoked in the past 12 months: No - Social History Usual Living Arrangement: Alone History of Recent Travel: No Home Medications - Allergies Allergies/Adverse Reactions: Allergies Allergy/AdvReac Type Severity Reaction Status Date / Time No Known Allergies Allergy Verified 07/04/19 03:16 - Home Medications Home Medications: Ambulatory Orders Aspirin [ASA -] 81 mg PO DAILY 06/09/19 Atorvastatin Ca [Lipitor] 20 mg PO HS 06/09/19 Digoxin [Lanoxin -] 0.125 mg PO DAILY 06/09/19 Diltiazem HCl [Diltiazem 24Hr ER] 120 mg PO DAILY 06/09/19 Furosemide [Lasix -] 40 mg PO DAILY 06/09/19 Lisinopril 5 mg PO DAILY 06/09/19 Albuterol Sulfate [Albuterol Sulfate Hfa] 2 puff PO Q4H PRN 06/16/19 Apixaban [Eliquis] 5 mg PO BID 30 Days #60 tablet 06/17/19 Family Medical History Family History: Denies Review of Systems - Review of Systems Constitutional: reports: Malaise, Weakness Eyes: reports: No Symptoms HENT: reports: No Symptoms Neck: reports: No Symptoms Cardiovascular: reports: Edema Respiratory: reports: SOB on Exertion Gastrointestinal: reports: No Symptoms Genitourinary: reports: No Symptoms Musculoskeletal: reports: Muscle Weakness Integumentary: reports: No Symptoms Neurological: reports: No Symptoms Endocrine: reports: No Symptoms Hematology/Lymphatic: reports: No Symptoms Physical Exam Vital Signs: Vital Signs Temperature 98.6 F 03/02/20 14:16 Pulse Rate 94 H 03/02/20 14:16 Respiratory Rate 18 03/02/20 14:16 Blood Pressure 113/76 03/02/20 14:16 O2 Sat by Pulse Oximetry (%) 98 03/02/20 10:00 Constitutional: Yes: Calm Eyes: Yes: Conjunctiva Clear HENT: Yes: Atraumatic Neck: Yes: Supple Cardiovascular: Yes: S1, S2 Respiratory: Yes: CTA Bilaterally Gastrointestinal: Yes: Normal Bowel Sounds, Soft ...Rectal Exam: Yes: Other Musculoskeletal: Yes: WNL Edema: Yes Edema: LLE: 1+, RLE: 1+ Neurological: Yes: Oriented Labs: CBC, BMP 03/02/20 07:25 03/02/20 07:25 Imaging - Results Chest X-ray: Report Reviewed Problem List - Problems (1) ELYSSA (acute kidney injury) Code(s): N17.9 - ACUTE KIDNEY FAILURE, UNSPECIFIED (2) Leg weakness Code(s): R29.898 - OTH SYMPTOMS AND SIGNS INVOLVING THE MUSCULOSKELETAL SYSTEM (3) Chest pain Code(s): R07.9 - CHEST PAIN, UNSPECIFIED Qualifiers: Chest pain type: unspecified Qualified Code(s): R07.9 - Chest pain, unspecified (4) A-fib Code(s): I48.91 - UNSPECIFIED ATRIAL FIBRILLATION Assessment/Plan Current Medications Generic Name Dose Route Start Last Admin Trade Name Freq PRN Reason Stop Dose Admin Apixaban 2.5 mg 03/01/20 10:00 03/02/20 09:16 Eliquis - PO 2.5 mg BID [facility] Administration Furosemide 40 mg 03/03/20 10:00 Lasix - PO DAILY [facility] Insulin Aspart 1 vial 03/01/20 07:00 03/02/20 12:40 Novolog Vial Sliding Scale - SQ Not Given ACHS [facility] Protocol Laboratory Tests 06/17/19 07/04/19 03/01/20 08:35 04:30 03:00 Creatinine 1.3 1.2 1.3 COVID-19 ([facility]) 03/01/20 03/02/20 03:00 07:25 Creatinine 1.6 H COVID-19 ([facility]) Not detected Impression 1. elyssa 2. chf 3. a-fib 4. htn 5. hld 6. 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
--- NOTE | 2020-03-02 19:13 | CON.NEURO ---
Consult - History of Present Illness History of Present Illness: 89 year old woman with PMH htn, hld, afib on Eliquis, CHF (ECHO in May 2019 EF 55-60%), NIDDM, presenting with worsening dyspnea. She states while watching television last night she dozed off and when she awoke was unable to move her extremities or breathe; the episode resolved within seconds. She has longstanding weakness of the right leg x atleast 2 years ( she states told to have "arthritis ") and felt her left knee was buckling yesterday and was unable to use walker. She typically at baseline walks very slow and drags the right leg. states she has left hip and knee pain ; no sig low back pain though has discomfort; no cognitive issues or weakness in UE . she lives alone, has no aide and admits its hard to mobilize in her house. ( Family lives upstairs) increasing lower extremity edema over the prior [address] to my eye : generalized atrophy, no bleed/acute infarct or evidence of hydrocephalus creatinine 1.6/COVID (-) - Past Medical History Cardio/Vascular: Yes: AFIB, CHF, HTN - Alcohol/Substance Use Hx Alcohol Use: No - Smoking History Smoking history: Never smoked Have you smoked in the past 12 months: No - Social History Usual Living Arrangement: Alone History of Recent Travel: No Home Medications - Allergies Allergies/Adverse Reactions: Allergies Allergy/AdvReac Type Severity Reaction Status Date / Time No Known Allergies Allergy Verified 07/04/19 03:16 - Home Medications Home Medications: Ambulatory Orders Aspirin [ASA -] 81 mg PO DAILY 06/09/19 Atorvastatin Ca [Lipitor] 20 mg PO HS 06/09/19 Digoxin [Lanoxin -] 0.125 mg PO DAILY 06/09/19 Diltiazem HCl [Diltiazem 24Hr ER] 120 mg PO DAILY 06/09/19 Furosemide [Lasix -] 40 mg PO DAILY 06/09/19 Lisinopril 5 mg PO DAILY 06/09/19 Albuterol Sulfate [Albuterol Sulfate Hfa] 2 puff PO Q4H PRN 06/16/19 Apixaban [Eliquis] 5 mg PO BID 30 Days #60 tablet 06/17/19 Family Medical History Family History: Denies Physical Exam-Neuro Vital Signs: Vital Signs Temperature 98.6 F 03/02/20 14:16 Pulse Rate 94 H 03/02/20 14:16 Respiratory Rate 18 03/02/20 14:16 Blood Pressure 113/76 03/02/20 14:16 O2 Sat by Pulse Oximetry (%) 98 03/02/20 10:00 Labs: CBC, BMP 03/02/20 07:25 03/02/20 07:25 INR, PTT INR 1.27 (0.83-1.09) H 03/01/20 03:00 - Neuro Exam Level Of Consciousness: Yes: Alert, Oriented to Person (EOMI, no facial , motor UE 5/5, LE weakness in the right leg proximally/IP 4/5 , distally with best effort can move close 5/5, LLE 5/5 prox and distally with best effort , reflexes trace in LE , no sensory level, can ambulate with walker very slow/guarded ) Imaging - Results Cat Scan: Image Reviewed Problem List - Problems (1) ELYSSA (acute kidney injury) Code(s): N17.9 - ACUTE KIDNEY FAILURE, UNSPECIFIED (2) Leg weakness Code(s): R29.898 - OTH SYMPTOMS AND SIGNS INVOLVING THE MUSCULOSKELETAL SYSTEM (3) Chest pain Code(s): R07.9 - CHEST PAIN, UNSPECIFIED Qualifiers: Chest pain type: unspecified Qualified Code(s): R07.9 - Chest pain, unspecified (4) A-fib Code(s): I48.91 - UNSPECIFIED ATRIAL FIBRILLATION Assessment/Plan 89 year old woman with PMH htn, hld, afib on Eliquis, CHF (ECHO in May 2019 EF 55-60%), NIDDM, presenting with worsening dyspnea. She states while watching television last night she dozed off and when she awoke was unable to move her extremities or breathe; the episode resolved within seconds. She has longstanding weakness of the right leg x atleast 2 years ( she states told to have "arthritis ") and felt her left knee was buckling yesterday and was unable to use walker. She typically at baseline walks very slow and drags the right leg. states she has left hip and knee pain ; no sig low back pain though has discomfort; no cognitive issues or weakness in UE . she lives alone, has no aide and admits its hard to mobilize in her house. ( Family lives upstairs) increasing lower extremity edema over the prior [address] to my eye : generalized atrophy, no bleed/acute infarct or evidence of hydrocephalus creatinine 1.6/COVID (-) AP : ABNL gait , progressive dyspnea , hx of DM/ hyptn/ CHF/afib/on AC residual weakness in the RLE and felt transient weakness in the LLE --which appears to have improved Acute on chronic CHF maybe have been a factor in LE edema doubt this a new cerebral vascular event , no evidence of a myelopathy, will FU HD CT official unclear why she has been weak RLE -- ? prior hip pathology / Diabetic amyotrophy /upper lumber spinal stenosis/prior stroke (?) though she is sure this has been present for yrs can check XRAY left hip and knee concerned re her living situation, as she lives alone -- SW consult to better decipher options PT consult card FU / RE CHF --cont AC thanks , DR NAVARRETE
[2020-03-03] MEDS: INSULIN SLIDING SCALE (NOVOLOG) 1 VIAL SQ SCH ×4 (06:42→21:07)
[2020-03-03] MEDS: FUROSEMIDE 40 MG TABLET (FP) PO SCH ×2 (08:33→09:09)
[2020-03-03] MEDS: APIXABAN 2.5 MG TABLET PO SCH ×3 (08:33→21:06)
[2020-03-03 08:40] LABS: ALBUMIN 3.4 g/dl (3.4-5.0); BLOOD UREA NITROGEN 35.9 mg/dL (7-18); CALCIUM 9.1 mg/dL (8.5-10.1); CREATININE 1.3 mg/dL (0.55-1.3); POTASSIUM 4.4 mmol/L (3.5-5.1); TOT PROT 6.7 g/dl (6.4-8.2)
--- NOTE | 2020-03-03 10:11 | PN ---
Progress Note, Physician - Current Medication List Current Medications: Active Medications Apixaban (Eliquis -) 2.5 mg PO BID [facility] Last Admin: 03/03/20 09:09 Dose: Not Given Documented by: Furosemide (Lasix -) 40 mg PO DAILY [facility] Last Admin: 03/03/20 09:09 Dose: Not Given Documented by: Insulin Aspart (Novolog Vial Sliding Scale -) 1 vial SQ ACHS [facility]; Protocol Last Admin: 03/03/20 06:42 Dose: Not Given Documented by: - Objective Vital Signs: Vital Signs Temperature 98.3 F 03/03/20 09:00 Pulse Rate 85 03/03/20 09:00 Respiratory Rate 18 03/03/20 09:00 Blood Pressure 117/69 03/03/20 09:00 O2 Sat by Pulse Oximetry (%) 100 03/03/20 09:00 Cardiovascular: Yes: S1, S2 Respiratory: Yes: Regular, CTA Bilaterally Gastrointestinal: Yes: Normal Bowel Sounds, Soft. No: Tenderness Labs: CBC, BMP 03/02/20 07:25 03/03/20 07:29 INR, PTT INR 1.27 (0.83-1.09) H 03/01/20 03:00 Problem List - Problems (1) A-fib Assessment/Plan: cont with eliquis monitor rate compliance discussed Code(s): I48.91 - UNSPECIFIED ATRIAL FIBRILLATION (2) Acute exacerbation of CHF (congestive heart failure) Assessment/Plan: iv lasix--po cardio consult appreciated follow lytes Code(s): I50.9 - HEART FAILURE, UNSPECIFIED Qualifiers: Heart failure type: unspecified Qualified Code(s): I50.9 - Heart failure, unspecified (3) Leg weakness Assessment/Plan: neuro consult appreciated ortho pt Code(s): R29.898 - OTH SYMPTOMS AND SIGNS INVOLVING THE MUSCULOSKELETAL SYSTEM (4) ELYSSA (acute kidney injury) Assessment/Plan: maybe due to lasix dc iv to po monitor renal Code(s): N17.9 - ACUTE KIDNEY FAILURE, UNSPECIFIED (5) Fall Assessment/Plan: pt--snf Code(s): W19.XXXA - UNSPECIFIED FALL, INITIAL ENCOUNTER Qualifiers: Encounter type: initial encounter Qualified Code(s): W19.XXXA - Unspecified fall, initial encounter
--- NOTE | 2020-03-03 14:22 | PN ---
Progress Note, Physician History of Present Illness: Pt seen and examined. She feels that her breathing is improved. - Current Medication List Current Medications: Active Medications Apixaban (Eliquis -) 2.5 mg PO BID [facility] Last Admin: 03/03/20 09:09 Dose: Not Given Documented by: Furosemide (Lasix -) 40 mg PO DAILY [facility] Last Admin: 03/03/20 09:09 Dose: Not Given Documented by: Insulin Aspart (Novolog Vial Sliding Scale -) 1 vial SQ ACHS [facility]; Protocol Last Admin: 03/03/20 10:33 Dose: Not Given Documented by: - Objective Vital Signs: Vital Signs Temperature 98.3 F 03/03/20 09:00 Pulse Rate 85 03/03/20 09:00 Respiratory Rate 18 03/03/20 09:00 Blood Pressure 117/69 03/03/20 09:00 O2 Sat by Pulse Oximetry (%) 100 03/03/20 09:00 Constitutional: Yes: Calm Eyes: Yes: Conjunctiva Clear HENT: Yes: Atraumatic Neck: Yes: Supple Cardiovascular: Yes: S1, S2 Respiratory: Yes: CTA Bilaterally Gastrointestinal: Yes: Normal Bowel Sounds, Soft Genitourinary: Yes: WNL Musculoskeletal: Yes: WNL Edema: Yes Edema: LLE: Trace, RLE: Trace Neurological: Yes: Oriented Psychiatric: Yes: Oriented Labs: CBC, BMP 03/02/20 07:25 03/03/20 07:29 INR, PTT INR 1.27 (0.83-1.09) H 03/01/20 03:00 Problem List - Problems (1) ELYSSA (acute kidney injury) Code(s): N17.9 - ACUTE KIDNEY FAILURE, UNSPECIFIED (2) Leg weakness Code(s): R29.898 - OTH SYMPTOMS AND SIGNS INVOLVING THE MUSCULOSKELETAL SYSTEM (3) Chest pain Code(s): R07.9 - CHEST PAIN, UNSPECIFIED Qualifiers: Chest pain type: unspecified Qualified Code(s): R07.9 - Chest pain, unspecified (4) A-fib Code(s): I48.91 - UNSPECIFIED ATRIAL FIBRILLATION Assessment/Plan Current Medications Generic Name Dose Route Start Last Admin Trade Name Freq PRN Reason Stop Dose Admin Apixaban 2.5 mg 03/01/20 10:00 03/03/20 09:09 Eliquis - PO Not Given BID [facility] Furosemide 40 mg 03/03/20 10:00 03/03/20 09:09 Lasix - PO Not Given DAILY [facility] Insulin Aspart 1 vial 03/01/20 07:00 03/03/20 10:33 Novolog Vial Sliding Scale - SQ Not Given ACHS [facility] Protocol Laboratory Tests 03/02/20 06:00 Protein/Creatinin Ratio 0.1 Impression 1. elyssa 2. chf 3. a-fib 4. htn 5. hld 6. dm Plan - renal function is improved - cont po lasix - volume status improving - follow ua - follow ultrasound - avoid nsaids - will need outpt follow up
[2020-03-04] MEDS: INSULIN SLIDING SCALE (NOVOLOG) 1 VIAL SQ SCH (06:32)
[2020-03-04] MEDS: FUROSEMIDE 40 MG TABLET (FP) PO SCH (09:04)
[2020-03-04] MEDS: APIXABAN 2.5 MG TABLET PO SCH ×2 (09:04→21:58)
--- NOTE | 2020-03-04 10:47 | PN ---
Progress Note, Physician Chief Complaint: CHF exacerbation Weakness History of Present Illness: Valentine Richardson is an 89 year old woman with PMH htn, hld, afib on Eliquis, CHF (ECHO in May 2019 EF 55-60%), NIDDM, presenting with worsening dyspnea. She states while watching television last night she dozed off and when she awoke was unable to move her extremities or breathe; the episode resolved within seconds. She states this is the second time this has happened this week, which prompted her to call 911. She reports increasing lower extremity edema over the prior 2 months, and within the past week has had a generalized feeling of 'being unwell' -- describing on and off diffuse chest discomfort 4/10, mild 'achy' abdominal pain. She denies nausea, vomiting, diarrhea, hematochezia, melena. She says she has only been taking Lasix intermittently. Lives in a house with her grandson, she is ambulating with a walker at baseline. - Current Medication List Current Medications: Active Medications Apixaban (Eliquis -) 2.5 mg PO BID [facility] Last Admin: 03/04/20 09:04 Dose: 2.5 mg Documented by: Aspirin (Asa -) 81 mg PO DAILY [facility] Atorvastatin Calcium (Lipitor -) 20 mg PO HS [facility] Furosemide (Lasix -) 40 mg PO DAILY [facility] Last Admin: 03/04/20 09:04 Dose: 40 mg Documented by: Non-Formulary Medication (Diltiazem Hcl [Diltiazem 24hr Er]) 120 mg PO DAILY [facility] - Objective Vital Signs: Vital Signs Temperature 98.1 F 03/04/20 10:00 Pulse Rate 89 03/04/20 10:00 Respiratory Rate 20 03/04/20 10:00 Blood Pressure 135/82 03/04/20 10:00 O2 Sat by Pulse Oximetry (%) 96 03/04/20 10:00 Constitutional: Yes: Well Nourished, No Distress, Calm, Obese Cardiovascular: Yes: Regular Rate and Rhythm Respiratory: Yes: Regular, CTA Bilaterally, Diminished (BLL) Gastrointestinal: Yes: Normal Bowel Sounds, Soft, Abdomen, Obese Musculoskeletal: Yes: Muscle Weakness Extremities: Yes: WNL Edema: No Peripheral Pulses WNL: Yes Neurological: Yes: Alert, Oriented Psychiatric: Yes: Alert, Oriented Labs: CBC, BMP 03/02/20 07:25 03/03/20 07:29 INR, PTT INR 1.27 (0.83-1.09) H 03/01/20 03:00 Problem List - Problems (1) ELYSSA (acute kidney injury) Assessment/Plan: -Resolved -Evaluated by Nephrology Problems reviewed: Yes Code(s): N17.9 - ACUTE KIDNEY FAILURE, UNSPECIFIED (2) Chest pain Assessment/Plan: -Resolved -Seen by Cardiology -EKG no changes -Trops x 2 negative Problems reviewed: Yes Code(s): R07.9 - CHEST PAIN, UNSPECIFIED Qualifiers: Chest pain type: unspecified Qualified Code(s): R07.9 - Chest pain, unspecified (3) A-fib Assessment/Plan: -Chronic rate controlled -Continue Eilquis -Restart Diltiazem -Hold digoxin Problems reviewed: Yes Code(s): I48.91 - UNSPECIFIED ATRIAL FIBRILLATION (4) Acute exacerbation of CHF (congestive heart failure) Assessment/Plan: -Continue Lasix 40 mg po daily -Start lisinopril at 2.5 mg po daily -Low sodium diet Problems reviewed: Yes Code(s): I50.9 - HEART FAILURE, UNSPECIFIED Qualifiers: Heart failure type: unspecified Qualified Code(s): I50.9 - Heart failure, unspecified Assessment/Plan See problem list PT eval for possible SNF Pt agrees to go to [facility]
--- NOTE | 2020-03-04 11:04 | CON.ORTH ---
Consult Reason for Consultation:: left hip and knee pain - Past Medical History Cardio/Vascular: Yes: AFIB, CHF, HTN - Alcohol/Substance Use Hx Alcohol Use: No - Smoking History Smoking history: Never smoked Have you smoked in the past 12 months: No - Social History Usual Living Arrangement: Alone History of Recent Travel: No Home Medications - Allergies Allergies/Adverse Reactions: Allergies Allergy/AdvReac Type Severity Reaction Status Date / Time No Known Allergies Allergy Verified 07/04/19 03:16 - Home Medications Home Medications: Ambulatory Orders Aspirin [ASA -] 81 mg PO DAILY 06/09/19 Atorvastatin Ca [Lipitor] 20 mg PO HS 06/09/19 Digoxin [Lanoxin -] 0.125 mg PO DAILY 06/09/19 Diltiazem HCl [Diltiazem 24Hr ER] 120 mg PO DAILY 06/09/19 Furosemide [Lasix -] 40 mg PO DAILY 06/09/19 Lisinopril 5 mg PO DAILY 06/09/19 Albuterol Sulfate [Albuterol Sulfate Hfa] 2 puff PO Q4H PRN 06/16/19 Apixaban [Eliquis] 5 mg PO BID 30 Days #60 tablet 06/17/19 Family Medical History Family History: Denies Physical Exam for Ortho Vital Signs: Vital Signs Temperature 98.1 F 03/04/20 10:00 Pulse Rate 89 03/04/20 10:00 Respiratory Rate 20 03/04/20 10:00 Blood Pressure 135/82 03/04/20 10:00 O2 Sat by Pulse Oximetry (%) 96 03/04/20 10:00 Labs: CBC, BMP 03/02/20 07:25 03/03/20 07:29 INR, PTT INR 1.27 (0.83-1.09) H 03/01/20 03:00 - Lower Extremity Hip: Yes: Left, Decreased ROM, Pain, Other (equal limb lengths, + ttp, + pain with IR and ER, nvi) Knee: Yes: Left, Pain, Other (no swelling, minimal ttp, rom 2-120, calf soft, nt, nvi) Imaging - Results X-ray: Report Reviewed, Image Reviewed Assessment/Plan 89 year old woman with PMH htn, hld, afib on Eliquis, CHF (ECHO in May 2019 EF 55-60%), NIDDM, presenting with worsening dyspnea. She states while watching television last night she dozed off and when she awoke was unable to move her extremities or breathe; the episode resolved within seconds. She states this is the second time this has happened this week, which prompted her to call 911. She reports increasing lower extremity edema over the prior 2 months, and within the past week has had a generalized feeling of 'being unwell' -- describing on and off diffuse chest discomfort 4/10, mild 'achy' abdominal pain. She denies nausea, vomiting, diarrhea, hematochezia, melena. She says she has only been taking Lasix intermittently. Lives in a house with her grandson, she is ambulating with a walker at baseline. Pt c/o mostly left hip pain radiating to left knee. a/p left hip and knee djd Risks and benefits were d/w pt in detail, pt defers any sugical treatment PT eval wbat analgesics prn will follow d/w Dr. Mckeon
[2020-03-04] MEDS: ASPIRIN 81 MG CHEWABLE TABLETS PO SCH (11:36)
[2020-03-04] MEDS: LISINOPRIL 5 MG TABLET PO SCH (11:36)
[2020-03-04 11:50] VITALS: BMI 40.2
--- NOTE | 2020-03-04 12:59 | PN ---
Progress Note, Physician History of Present Illness: Pt seen and examined at bedside. She is awake and alert. She denies shortness of breath. She feels edema is improving. - Current Medication List Current Medications: Active Medications Apixaban (Eliquis -) 2.5 mg PO BID [facility] Last Admin: 03/04/20 09:04 Dose: 2.5 mg Documented by: Aspirin (Asa -) 81 mg PO DAILY [facility] Last Admin: 03/04/20 11:36 Dose: 81 mg Documented by: Atorvastatin Calcium (Lipitor -) 20 mg PO [facility] Diltiazem HCl (Cardizem Cd -) 120 mg PO DAILY [facility] Last Admin: 03/04/20 11:36 Dose: 120 mg Documented by: Furosemide (Lasix -) 40 mg PO DAILY [facility] Last Admin: 03/04/20 09:04 Dose: 40 mg Documented by: Lisinopril (Prinivil) 2.5 mg PO DAILY [facility] Last Admin: 03/04/20 11:36 Dose: 2.5 mg Documented by: - Objective Vital Signs: Vital Signs Temperature 98.1 F 03/04/20 10:00 Pulse Rate 89 03/04/20 10:00 Respiratory Rate 20 03/04/20 10:00 Blood Pressure 135/82 03/04/20 10:00 O2 Sat by Pulse Oximetry (%) 96 03/04/20 10:00 Constitutional: Yes: Calm Eyes: Yes: Conjunctiva Clear HENT: Yes: Atraumatic Neck: Yes: Supple Cardiovascular: Yes: S1, S2 Respiratory: Yes: CTA Bilaterally Gastrointestinal: Yes: Normal Bowel Sounds, Soft Genitourinary: Yes: WNL Musculoskeletal: Yes: WNL Edema: Yes Edema: LLE: 1+, RLE: 1+ Neurological: Yes: Oriented Psychiatric: Yes: Oriented Labs: CBC, BMP 03/02/20 07:25 03/03/20 07:29 INR, PTT INR 1.27 (0.83-1.09) H 03/01/20 03:00 Problem List - Problems (1) MARNI (acute kidney injury) Code(s): N17.9 - ACUTE KIDNEY FAILURE, UNSPECIFIED (2) Leg weakness Code(s): R29.898 - OTH SYMPTOMS AND SIGNS INVOLVING THE MUSCULOSKELETAL SYSTEM (3) Chest pain Code(s): R07.9 - CHEST PAIN, UNSPECIFIED Qualifiers: Chest pain type: unspecified Qualified Code(s): R07.9 - Chest pain, unspecified (4) A-fib Code(s): I48.91 - UNSPECIFIED ATRIAL FIBRILLATION Assessment/Plan Current Medications Generic Name Dose Route Start Last Admin Trade Name Renetta PRN Reason Stop Dose Admin Apixaban 2.5 mg 03/01/20 10:00 03/04/20 09:04 Eliquis - PO 2.5 mg BID BETINA Administration Aspirin 81 mg 03/04/20 10:45 03/04/20 11:36 Asa - PO 81 mg DAILY BETINA Administration Atorvastatin Calcium 20 mg 03/04/20 22:00 Lipitor - PO HS BETINA Diltiazem HCl 120 mg 03/04/20 10:45 03/04/20 11:36 Cardizem Cd - PO 120 mg DAILY BETINA Administration Furosemide 40 mg 03/03/20 10:00 03/04/20 09:04 Lasix - PO 40 mg DAILY BETINA Administration Lisinopril 2.5 mg 03/04/20 11:00 03/04/20 11:36 Prinivil PO 2.5 mg DAILY BETINA Administration Impression 1. marni 2. chf 3. a-fib 4. htn 5. hld 6. dm 7. renal cysts Plan - cont lasix - repeat labs in am - volume status is improving - ua pending - renal ultrasound reviewed - avoid nsaids - will need outpt follow up
[2020-03-04] MEDS: ATORVASTATIN CA 20 MG TABLET (FP) PO SCH (21:58)
[2020-03-04] MEDS ORDERED: MAG HYDROX/AL HYDROX/SIMETH 30 ML UNIT-DOSE CUP PO ONE (23:38)
[2020-03-05 08:33] LABS: CALCIUM 8.9 mg/dL (8.5-10.1); CREATININE 1.2 mg/dL (0.55-1.3); POTASSIUM 4.3 mmol/L (3.5-5.1)
[2020-03-05] MEDS: ASPIRIN 81 MG CHEWABLE TABLETS PO SCH (09:38)
[2020-03-05] MEDS: LISINOPRIL 5 MG TABLET PO SCH (09:38)
[2020-03-05] MEDS: FUROSEMIDE 40 MG TABLET (FP) PO SCH (09:38)
[2020-03-05] MEDS: APIXABAN 2.5 MG TABLET PO SCH ×2 (09:39→21:03)
--- NOTE | 2020-03-05 11:08 | DS ---
Physical Examination Vital Signs: Vital Signs Temperature 97.7 F 03/05/20 10:00 Pulse Rate 76 03/05/20 10:00 Respiratory Rate 20 03/05/20 10:00 Blood Pressure 93/47 L 03/05/20 10:00 O2 Sat by Pulse Oximetry (%) 99 03/05/20 10:00 Findings/Remarks: Valentine Richardson is an 89 year old woman with PMH htn, hld, afib on Eliquis, CHF (ECHO in May 2019 EF 55-60%), NIDDM, presenting with worsening dyspnea. She states while watching television last night she dozed off and when she awoke was unable to move her extremities or breathe; the episode resolved within seconds. She states this is the second time this has happened this week, which prompted her to call 911. She reports increasing lower extremity edema over the prior 2 months, and within the past week has had a generalized feeling of 'being unwell' -- describing on and off diffuse chest discomfort 4/10, mild 'achy' abdominal pain. She denies nausea, vomiting, diarrhea, hematochezia, melena. She says she has only been taking Lasix intermittently. Lives in a house with her grandson, she was ambulating with a walker at her baseline minimal distance (1) ELYSSA (acute kidney injury) Assessment/Plan: -Resolved -Evaluated by Nephrology Problems reviewed: Yes Code(s): N17.9 - ACUTE KIDNEY FAILURE, UNSPECIFIED (2) Chest pain Assessment/Plan: -Resolved -Seen by Cardiology -EKG no changes -Trops x 2 negative Problems reviewed: Yes Code(s): R07.9 - CHEST PAIN, UNSPECIFIED Qualifiers: Chest pain type: unspecified Qualified Code(s): R07.9 - Chest pain, unspecified (3) A-fib Assessment/Plan: -Chronic rate controlled -Continue Eilquis 5 mg po bid -Restart Diltiazem CD 120 mg po daily -D/C digoxin Problems reviewed: Yes Code(s): I48.91 - UNSPECIFIED ATRIAL FIBRILLATION (4) Acute exacerbation of CHF (congestive heart failure) Assessment/Plan: -Continue Lasix 40 mg po daily -Low sodium diet Problems reviewed: Yes Code(s): I50.9 - HEART FAILURE, UNSPECIFIED Qualifiers: Heart failure type: unspecified Qualified Code(s): I50.9 - Heart failure, unspecified Assessment/Plan See problem list Constitutional: Yes: Well Nourished, No Distress, Calm Cardiovascular: Yes: Regular Rate and Rhythm Respiratory: Yes: Regular, CTA Bilaterally Gastrointestinal: Yes: Normal Bowel Sounds, Soft Renal/: Yes: WNL Musculoskeletal: Yes: Muscle Weakness Extremities: Yes: WNL Edema: No Peripheral Pulses WNL: Yes Neurological: Yes: Alert, Oriented Psychiatric: Yes: Alert, Oriented Labs: CBC, BMP 03/02/20 07:25 03/05/20 07:38 Discharge Summary Problems reviewed: Yes Reason For Visit: CONGESTIVE HEART FAILURE Current Active Problems ELYSSA (acute kidney injury) (Acute) Leg weakness (Acute) Condition: Stable - Instructions Referrals: Dylan Echevarria MD, MD [Primary Care Provider] - Ronn Wiggins MD [Staff Physician] - Daniel Varghese MD [Staff Physician] - Disposition: [facility] F[facility] - Home Medications Comprehensive Discharge Medication List: Ambulatory Orders Aspirin [ASA -] 81 mg PO DAILY 06/09/19 Atorvastatin Ca [Lipitor] 20 mg PO HS 06/09/19 Diltiazem HCl [Diltiazem 24Hr ER] 120 mg PO DAILY 06/09/19 Furosemide [Lasix -] 40 mg PO DAILY 06/09/19 Albuterol Sulfate [Albuterol Sulfate Hfa] 2 puff PO Q4H PRN 06/16/19 Apixaban [Eliquis -] 2.5 mg PO BID tablet 03/04/20 Furosemide [Lasix -] 40 mg PO DAILY tablet 03/04/20 Lisinopril [Prinivil] 2.5 mg PO DAILY tablet 03/04/20 Prescription Drug Monitoring Program (I-STOP) results: I-STOP reviewed and no issues identified
--- NOTE | 2020-03-05 13:38 | PN ---
Progress Note, Physician History of Present Illness: Pt seen and examined at bedside. She is awake and alert. She denies shortness of breath. - Current Medication List Current Medications: Active Medications Apixaban (Eliquis -) 2.5 mg PO BID [facility] Last Admin: 03/05/20 09:39 Dose: 2.5 mg Documented by: Aspirin (Asa -) 81 mg PO DAILY [facility] Last Admin: 03/05/20 09:38 Dose: 81 mg Documented by: Atorvastatin Calcium (Lipitor -) 20 mg PO HS [facility] Last Admin: 03/04/20 21:58 Dose: 20 mg Documented by: Diltiazem HCl (Cardizem Cd -) 120 mg PO DAILY [facility] Last Admin: 03/05/20 09:38 Dose: Not Given Documented by: Furosemide (Lasix -) 40 mg PO DAILY [facility] Last Admin: 03/05/20 09:38 Dose: Not Given Documented by: - Objective Vital Signs: Vital Signs Temperature 97.7 F 03/05/20 10:00 Pulse Rate 76 03/05/20 10:00 Respiratory Rate 20 03/05/20 10:00 Blood Pressure 93/47 L 03/05/20 10:00 O2 Sat by Pulse Oximetry (%) 99 03/05/20 10:00 Constitutional: Yes: Calm Eyes: Yes: Conjunctiva Clear HENT: Yes: Atraumatic Neck: Yes: Supple Cardiovascular: Yes: S1, S2 Respiratory: Yes: CTA Bilaterally Gastrointestinal: Yes: Normal Bowel Sounds, Soft Genitourinary: Yes: WNL Musculoskeletal: Yes: WNL Edema: No Neurological: Yes: Oriented Psychiatric: Yes: Oriented Labs: CBC, BMP 03/02/20 07:25 03/05/20 07:38 INR, PTT INR 1.27 (0.83-1.09) H 03/01/20 03:00 Problem List - Problems (1) MARNI (acute kidney injury) Code(s): N17.9 - ACUTE KIDNEY FAILURE, UNSPECIFIED (2) Leg weakness Code(s): R29.898 - OTH SYMPTOMS AND SIGNS INVOLVING THE MUSCULOSKELETAL SYSTEM (3) Chest pain Code(s): R07.9 - CHEST PAIN, UNSPECIFIED Qualifiers: Chest pain type: unspecified Qualified Code(s): R07.9 - Chest pain, unspecified (4) A-fib Code(s): I48.91 - UNSPECIFIED ATRIAL FIBRILLATION Assessment/Plan Current Medications Generic Name Dose Route Start Last Admin Trade Name Renetta PRN Reason Stop Dose Admin Apixaban 2.5 mg 03/01/20 10:00 03/05/20 09:39 Eliquis - PO 2.5 mg BID BETINA Administration Aspirin 81 mg 03/04/20 10:45 03/05/20 09:38 Asa - PO 81 mg DAILY BET[facility] Administration Atorvastatin Calcium 20 mg 03/04/20 22:00 03/04/20 21:58 Lipitor - PO 20 mg HS BETINA Administration Diltiazem HCl 120 mg 03/04/20 10:45 03/05/20 09:38 Cardizem Cd - PO Not Given DAILY [facility] Furosemide 40 mg 03/03/20 10:00 03/05/20 09:38 Lasix - PO Not Given DAILY [facility] Impression 1. marni 2. chf 3. a-fib 4. htn 5. hld 6. dm 7. renal cysts Plan - renal function improving - cont po lasix - will need outpt follow up - discussed diet - pt did not give urine for ua, can check in office - avoid nsaids
[2020-03-05] MEDS: ATORVASTATIN CA 20 MG TABLET (FP) PO SCH (21:03)
--- NOTE | 2020-03-05 23:58 | PN ---
Progress Note (short form) - Note Progress Note: Episodic Note: Called by RN IV site to right forearm tender to touch. Patient was seen and examined at bedside. Right forearm with no erythema and with some tenderness on exam. She is currently afebrile. Recommended warm compresses q4 hr. Continue to monitor [id number]. Visit type - Emergency Visit Emergency Visit: Yes ED Registration Date: 03/01/20 Care time: The patient presented to the Emergency Department on the above date and was hospitalized for further evaluation of their emergent condition. - New Patient This patient is new to me today: Yes Date on this admission: 03/05/20 - Critical Care Critical Care patient: No - Medication Review Med list reviewed for High Risk Meds patients 65 and older: No
[2020-03-06] MEDS: APIXABAN 2.5 MG TABLET PO SCH (09:22)
[2020-03-06] MEDS: ASPIRIN 81 MG CHEWABLE TABLETS PO SCH (09:22)
[2020-03-06] MEDS: FUROSEMIDE 40 MG TABLET (FP) PO SCH (09:24)
[2020-03-06 10:43] VITALS: BP 118/66; PULSE 75; TEMP 98.4
--- NOTE | 2020-03-06 11:42 | PN ---
Progress Note, Physician Chief Complaint: CHF exacerbation Weakness History of Present Illness: Valentine Richardson is an 89 year old woman with PMH htn, hld, afib on Eliquis, CHF (ECHO in May 2019 EF 55-60%), NIDDM, presenting with worsening dyspnea. She states while watching television last night she dozed off and when she awoke was unable to move her extremities or breathe; the episode resolved within seconds. She states this is the second time this has happened this week, which prompted her to call 911. She reports increasing lower extremity edema over the prior 2 months, and within the past week has had a generalized feeling of 'being unwell' -- describing on and off diffuse chest discomfort 4/10, mild 'achy' abdominal pain. She denies nausea, vomiting, diarrhea, hematochezia, melena. She says she has only been taking Lasix intermittently. Lives in a house with her grandson, she is ambulating with a walker at baseline. Awaiting Discharge to [facility] - Current Medication List Current Medications: Active Medications Apixaban (Eliquis -) 2.5 mg PO BID [facility] Last Admin: 03/06/20 09:22 Dose: 2.5 mg Documented by: Aspirin (Asa -) 81 mg PO DAILY [facility] Last Admin: 03/06/20 09:22 Dose: 81 mg Documented by: Atorvastatin Calcium (Lipitor -) 20 mg PO HS [facility] Last Admin: 03/05/20 21:03 Dose: 20 mg Documented by: Diltiazem HCl (Cardizem Cd -) 120 mg PO DAILY [facility] Last Admin: 03/06/20 09:22 Dose: 120 mg Documented by: Furosemide (Lasix -) 40 mg PO DAILY [facility] Last Admin: 03/06/20 09:24 Dose: 40 mg Documented by: - Objective Vital Signs: Vital Signs Temperature 98.4 F 03/06/20 10:00 Pulse Rate 75 03/06/20 10:00 Respiratory Rate 20 03/06/20 10:00 Blood Pressure 118/66 03/06/20 10:00 O2 Sat by Pulse Oximetry (%) 99 03/06/20 10:00 Constitutional: Yes: Well Nourished, No Distress, Calm Cardiovascular: Yes: Regular Rate and Rhythm Respiratory: Yes: Regular, CTA Bilaterally Gastrointestinal: Yes: Normal Bowel Sounds, Soft Genitourinary: Yes: WNL Musculoskeletal: Yes: Muscle Weakness Extremities: Yes: WNL Edema: No Peripheral Pulses WNL: Yes Neurological: Yes: Alert, Oriented Psychiatric: Yes: Alert, Oriented Labs: CBC, BMP 03/02/20 07:25 03/05/20 07:38 INR, PTT INR 1.27 (0.83-1.09) H 03/01/20 03:00 Problem List - Problems (1) ELYSSA (acute kidney injury) Assessment/Plan: -Resolved -Evaluated by Nephrology Problems reviewed: Yes Code(s): N17.9 - ACUTE KIDNEY FAILURE, UNSPECIFIED (2) Chest pain Assessment/Plan: -Resolved -Seen by Cardiology -EKG no changes -Trops x 2 negative Problems reviewed: Yes Code(s): R07.9 - CHEST PAIN, UNSPECIFIED Qualifiers: Chest pain type: unspecified Qualified Code(s): R07.9 - Chest pain, unspecified (3) A-fib Assessment/Plan: -Chronic rate controlled -Continue Eilquis -Restart Diltiazem -Hold digoxin Problems reviewed: Yes Code(s): I48.91 - UNSPECIFIED ATRIAL FIBRILLATION (4) Acute exacerbation of CHF (congestive heart failure) Assessment/Plan: -Continue Lasix 40 mg po daily -Start lisinopril at 2.5 mg po daily -Low sodium diet Problems reviewed: Yes Code(s): I50.9 - HEART FAILURE, UNSPECIFIED Qualifiers: Heart failure type: unspecified Qualified Code(s): I50.9 - Heart failure, unspecified Assessment/Plan See problem list PT eval for possible SNF
--- NOTE | 2020-03-06 12:55 | PN ---
Progress Note, Physician History of Present Illness: Pt seen and examined at bedside. She is awake and alert. She denies shortness of breath. - Objective Vital Signs: Vital Signs Temperature 98.4 F 03/06/20 10:00 Pulse Rate 75 03/06/20 10:00 Respiratory Rate 20 03/06/20 10:00 Blood Pressure 118/66 03/06/20 10:00 O2 Sat by Pulse Oximetry (%) 99 03/06/20 10:00 Constitutional: Yes: Calm Eyes: Yes: Conjunctiva Clear HENT: Yes: Atraumatic Cardiovascular: Yes: S1, S2 Respiratory: Yes: CTA Bilaterally Gastrointestinal: Yes: Normal Bowel Sounds, Soft Genitourinary: Yes: WNL Musculoskeletal: Yes: WNL Edema: LLE: Trace, RLE: Trace Neurological: Yes: Oriented Psychiatric: Yes: Oriented Labs: CBC, BMP 03/02/20 07:25 03/05/20 07:38 INR, PTT INR 1.27 (0.83-1.09) H 03/01/20 03:00 Problem List - Problems (1) MARNI (acute kidney injury) Code(s): N17.9 - ACUTE KIDNEY FAILURE, UNSPECIFIED (2) Leg weakness Code(s): R29.898 - OTH SYMPTOMS AND SIGNS INVOLVING THE MUSCULOSKELETAL SYSTEM (3) Chest pain Code(s): R07.9 - CHEST PAIN, UNSPECIFIED Qualifiers: Chest pain type: unspecified Qualified Code(s): R07.9 - Chest pain, unspecified (4) A-fib Code(s): I48.91 - UNSPECIFIED ATRIAL FIBRILLATION Assessment/Plan Current Medications Generic Name Dose Route Start Last Admin Trade Name Renetta PRN Reason Stop Dose Admin Apixaban 2.5 mg 03/01/20 10:00 03/05/20 09:39 Eliquis - PO 2.5 mg BID BETINA Administration Aspirin 81 mg 03/04/20 10:45 03/05/20 09:38 Asa - PO 81 mg DAILY BETINA Administration Atorvastatin Calcium 20 mg 03/04/20 22:00 03/04/20 21:58 Lipitor - PO 20 mg HS BETINA Administration Diltiazem HCl 120 mg 03/04/20 10:45 03/05/20 09:38 Cardizem Cd - PO Not Given DAILY [facility] Furosemide 40 mg 03/03/20 10:00 03/05/20 09:38 Lasix - PO Not Given DAILY [facility] Impression 1. marni 2. chf 3. a-fib 4. htn 5. hld 6. dm 7. renal cysts Plan - cont lasix - outpt follow up - renal function stable - discussed low sodium diet - avoid nsaids
== END 2020-03-06 12:35 | DRG 292 ==
LOC: JER 00:50 → JERBED 03:09 → J6S 15:53
PROVIDERS: ADMIT Internal Medicine; ATTEND Family Medicine
DX: I11.0 Hypertensive heart disease with heart failure (principal); N17.9 Acute kidney failure, unspecified; Z68.41 Body mass index [BMI] 40.0-44.9, adult; E66.01 Morbid (severe) obesity due to excess calories; E11.9 Type 2 diabetes mellitus without complications; I50.33 Acute on chronic diastolic (congestive) heart failure; E78.5 Hyperlipidemia, unspecified; I48.91 Unspecified atrial fibrillation; R07.89 Other chest pain; R29.898 Other symptoms and signs involving the musculoskeletal system; W18.30XA Fall on same level, unspecified, initial encounter; M17.12 Unilateral primary osteoarthritis, left knee; M16.12 Unilateral primary osteoarthritis, left hip; N28.1 Cyst of kidney, acquired; Y92.89 Other specified places as the place of occurrence of the external cause; R26.81 Unsteadiness on feet
CPT/HCPCS: 36415; 70450-TC; 71045-TC-FY; 73523-TC-FY; 73562-TC-LT-FY; 76775-TC; 80048; 80053; 82565; 82962; 83036; 83735; 83880; 84100; 84156; 84479; 84484; 85025; 85610; 85730; 93005; 93010; 94761; 97116-GP; 97162-GP; 99285-25; U0003

== ENCOUNTER 2020-08-23 18:22 | Inpatient (IN) | payer OTHER ==
[2020-08-23 20:23] LABS: EOS % 3.1 % (0-4.5); HEMATOCRIT 33.7 % (32.4-45.2); HEMOGLOBIN 10.9 GM/dL (10.7-15.3); LYMPH % 23.8 % (8-40); MCH 30.6 pg (25.7-33.7); MCHC 32.3 g/dl (32.0-36.0); MEAN CELL VOLUME 94.9 fl (80-96); MEAN PLT VOLUME 8.7 fl (7.5-11.1); MONO % 12.1 % (3.8-10.2); PLATELET COUNT 204 K/MM3 (134-434); RBC 3.55 M/mm3 (3.60-5.2); RDW 15.2 % (11.6-15.6); WHITE BLOOD COUNT 6.4 K/mm3 (4.0-10.0)
[2020-08-23 20:28] LABS: INR 1.2 (0.83-1.09); PROTHROMBIN TIME (PATIENT) 14.4 SEC (9.7-13.0)
[2020-08-23 20:31] LABS: ACTIVATED PTT 35.1 SECONDS (25.2-36.5)
[2020-08-23 20:39] LABS: CHLORIDE 106 mmol/L (98-107); SODIUM 138 mmol/L (136-145)
[2020-08-23 20:44] LABS: CALCIUM 9.1 mg/dL (8.5-10.1)
[2020-08-23 20:45] LABS: ALBUMIN 3.5 g/dl (3.4-5.0); ANION GAP 2 MMOL/L (8-16); BLOOD UREA NITROGEN 23.2 mg/dL (7-18); CO2 30 mmol/L (21-32); GLUCOSE,RANDOM 88 mg/dL (74-106); MAGNESIUM 2.3 mg/dL (1.8-2.4)
[2020-08-23 20:48] LABS: SGOT/AST 20 U/L (15-37); SGPT/ALT 19 U/L (13-61)
[2020-08-23 20:49] LABS: BILIRUBIN,TOTAL 0.7 mg/dL (0.2-1); TOT PROT 7.2 g/dl (6.4-8.2)
[2020-08-23 20:50] LABS: ALK PHOS 80 U/L (45-117)
[2020-08-23 20:53] LABS: N-TERMINAL BNP 1549.4 pg/ml (5-450)
[2020-08-23] MEDS ORDERED: FUROSEMIDE 40 MG/4 ML INJECTABLE VIAL IVPUSH ONE (20:56)
[2020-08-23] MEDS ORDERED: FUROSEMIDE 40 MG/4 ML INJECTABLE VIAL ONE (21:03)
[2020-08-24] MEDS ORDERED: ALBUTEROL SO4 HFA INHALER IH PRN (06:51)
[2020-08-24 07:08] LABS: BASO % 1.3 % (0-2.0); EOS % 3.7 % (0-4.5); HEMATOCRIT 33.9 % (32.4-45.2); HEMOGLOBIN 11.1 GM/dL (10.7-15.3); LYMPH % 26.8 % (8-40); MCH 31.1 pg (25.7-33.7); MCHC 32.6 g/dl (32.0-36.0); MEAN CELL VOLUME 95.2 fl (80-96); MEAN PLT VOLUME 8.5 fl (7.5-11.1); NEUT % 56.2 % (42.8-82.8); PLATELET COUNT 200 K/MM3 (134-434); RBC 3.56 M/mm3 (3.60-5.2); WHITE BLOOD COUNT 6.6 K/mm3 (4.0-10.0)
[2020-08-24 07:25] LABS: POTASSIUM 4.2 mmol/L (3.5-5.1)
[2020-08-24 07:27] LABS: CALCIUM 9.4 mg/dL (8.5-10.1)
[2020-08-24 07:28] LABS: ALBUMIN 3.5 g/dl (3.4-5.0); BLOOD UREA NITROGEN 23.4 mg/dL (7-18)
[2020-08-24 07:31] LABS: CREATININE 1.1 mg/dL (0.55-1.3)
[2020-08-24 07:32] LABS: BILIRUBIN,TOTAL 1.1 mg/dL (0.2-1); TOT PROT 6.8 g/dl (6.4-8.2)
[2020-08-24] MEDS ORDERED: ASPIRIN 81 MG CHEWABLE TABLETS ONE (09:58)
[2020-08-24] MEDS ORDERED: APIXABAN 2.5 MG TABLET ONE (09:58)
[2020-08-24] MEDS ORDERED: LISINOPRIL 5 MG TABLET ONE (09:58)
[2020-08-24] MEDS ORDERED: FUROSEMIDE 40 MG/4 ML INJECTABLE VIAL ONE (09:59)
[2020-08-24] MEDS: ASPIRIN 81 MG CHEWABLE TABLETS PO SCH (10:16)
[2020-08-24] MEDS: FUROSEMIDE 40 MG/4 ML INJECTABLE VIAL IVPUSH SCH (10:16)
[2020-08-24] MEDS: LISINOPRIL 5 MG TABLET PO SCH (10:16)
[2020-08-24] MEDS: APIXABAN 2.5 MG TABLET PO SCH ×2 (10:16→21:52)
[2020-08-24] MEDS ORDERED: ALBUTEROL SO4 HFA INHALER IH ONE (19:25)
[2020-08-24] MEDS: ATORVASTATIN CA 20 MG TABLET (FP) PO SCH (21:52)
[2020-08-25] MEDS ORDERED: PNEUMOC 13-VAL CONJ-DIP CRM/PF 0.5 ML DISP.SYRIN IM ONE (02:04)
[2020-08-25 07:39] LABS: HEMATOCRIT 32.9 % (32.4-45.2); HEMOGLOBIN 10.9 GM/dL (10.7-15.3); MCH 31.3 pg (25.7-33.7); MCHC 33.3 g/dl (32.0-36.0); MEAN PLT VOLUME 7.8 fl (7.5-11.1); PLATELET COUNT 199 K/MM3 (134-434); RDW 14.8 % (11.6-15.6); WHITE BLOOD COUNT 5.7 K/mm3 (4.0-10.0)
[2020-08-25 08:02] LABS: POTASSIUM 4.1 mmol/L (3.5-5.1)
[2020-08-25 08:06] LABS: CALCIUM 8.8 mg/dL (8.5-10.1)
[2020-08-25 08:07] LABS: BLOOD UREA NITROGEN 25.4 mg/dL (7-18)
[2020-08-25 08:10] LABS: CREATININE 1.3 mg/dL (0.55-1.3)
[2020-08-25] MEDS: FUROSEMIDE 40 MG/4 ML INJECTABLE VIAL IVPUSH SCH (09:39)
[2020-08-25] MEDS: LISINOPRIL 5 MG TABLET PO SCH (09:39)
[2020-08-25] MEDS: ASPIRIN 81 MG CHEWABLE TABLETS PO SCH (09:39)
[2020-08-25] MEDS: APIXABAN 2.5 MG TABLET PO SCH ×2 (09:39→21:21)
[2020-08-25] MEDS: ATORVASTATIN CA 20 MG TABLET (FP) PO SCH (21:21)
[2020-08-26] MEDS: APIXABAN 2.5 MG TABLET PO SCH ×2 (09:34→21:16)
[2020-08-26] MEDS: TIOTROPIUM BROMIDE 2.5 MCG (SPIRIVA) RESPIMAT INHALER IH SCH (09:34)
[2020-08-26] MEDS: BUDESONIDE/FORMETEROL FUMARATE 160/4.5 mcg INHALER IH SCH ×2 (09:34→21:16)
[2020-08-26] MEDS: LISINOPRIL 5 MG TABLET PO SCH (09:35)
[2020-08-26] MEDS: ASPIRIN 81 MG CHEWABLE TABLETS PO SCH (09:35)
[2020-08-26] MEDS: FUROSEMIDE 40 MG/4 ML INJECTABLE VIAL IVPUSH SCH (09:36)
[2020-08-26] MEDS ORDERED: PNEUMOC 13-VAL CONJ-DIP CRM/PF 0.5 ML DISP.SYRIN IM ONE (14:00)
[2020-08-26 14:39] VITALS: BMI 39.2
[2020-08-26] MEDS: ATORVASTATIN CA 20 MG TABLET (FP) PO SCH (21:16)
[2020-08-27] MEDS: ASPIRIN 81 MG CHEWABLE TABLETS PO SCH (10:55)
[2020-08-27] MEDS: APIXABAN 2.5 MG TABLET PO SCH ×2 (10:55→21:28)
[2020-08-27] MEDS: LISINOPRIL 5 MG TABLET PO SCH (10:56)
[2020-08-27] MEDS: FUROSEMIDE 40 MG/4 ML INJECTABLE VIAL IVPUSH SCH (10:56)
[2020-08-27] MEDS: MULTIVITAMINS THER W-MINERALS COMBO TABLET (FP) PO SCH (10:56)
[2020-08-27] MEDS: BUDESONIDE/FORMETEROL FUMARATE 160/4.5 mcg INHALER IH SCH ×2 (11:00→21:28)
[2020-08-27] MEDS: TIOTROPIUM BROMIDE 2.5 MCG (SPIRIVA) RESPIMAT INHALER IH SCH (11:00)
[2020-08-27] MEDS: ATORVASTATIN CA 20 MG TABLET (FP) PO SCH (21:28)
[2020-08-28 07:26] LABS: POTASSIUM 4.2 mmol/L (3.5-5.1)
[2020-08-28 07:28] LABS: BLOOD UREA NITROGEN 32.2 mg/dL (7-18); CALCIUM 8.6 mg/dL (8.5-10.1)
[2020-08-28 07:29] LABS: ALBUMIN 3.1 g/dl (3.4-5.0)
[2020-08-28 07:32] LABS: CREATININE 1.2 mg/dL (0.55-1.3)
[2020-08-28 07:33] LABS: BILIRUBIN,TOTAL 0.9 mg/dL (0.2-1); TOT PROT 6.4 g/dl (6.4-8.2)
[2020-08-28] MEDS: MULTIVITAMINS THER W-MINERALS COMBO TABLET (FP) PO SCH (09:30)
[2020-08-28] MEDS: APIXABAN 2.5 MG TABLET PO SCH (09:30)
[2020-08-28] MEDS: FUROSEMIDE 40 MG/4 ML INJECTABLE VIAL IVPUSH SCH (09:30)
[2020-08-28] MEDS: LISINOPRIL 5 MG TABLET PO SCH (09:30)
[2020-08-28] MEDS: ASPIRIN 81 MG CHEWABLE TABLETS PO SCH (09:30)
[2020-08-28] MEDS: BUDESONIDE/FORMETEROL FUMARATE 160/4.5 mcg INHALER IH SCH (09:31)
[2020-08-28] MEDS: TIOTROPIUM BROMIDE 2.5 MCG (SPIRIVA) RESPIMAT INHALER IH SCH (09:32)
[2020-08-28 09:43] VITALS: BP 108/70; PULSE 85; TEMP 98
== END 2020-08-28 11:43 | disposition home or self-care (01) | DRG 292 ==
LOC: JER 18:22 → JERBED 22:00 → J4S 08-24 20:50
PROVIDERS: ADMIT Internal Medicine; ATTEND Family Medicine
DX: I11.0 Hypertensive heart disease with heart failure (principal); N17.9 Acute kidney failure, unspecified; I48.19 Other persistent atrial fibrillation; J98.11 Atelectasis; I50.33 Acute on chronic diastolic (congestive) heart failure; E78.5 Hyperlipidemia, unspecified; E11.9 Type 2 diabetes mellitus without complications; J45.909 Unspecified asthma, uncomplicated; I27.20 Pulmonary hypertension, unspecified; N28.1 Cyst of kidney, acquired; R91.1 Solitary pulmonary nodule; J44.9 Chronic obstructive pulmonary disease, unspecified; E66.9 Obesity, unspecified; Z68.39 Body mass index [BMI] 39.0-39.9, adult
CPT/HCPCS: 36415; 71045-TC-FY; 71250-TC; 80048; 80053; 82550; 83735; 83880; 84484; 85025; 85027; 85610; 85730; 87804; 90670; 93005; 93010; 93306-TC; 97116-GP; 97161-GP; 99285-25; C9803; U0003; U0005

== ENCOUNTER 2021-01-03 09:35 | Inpatient (IN) | payer OTHER ==
[2021-01-03 10:10] VITALS: BMI 44.3
[2021-01-03] MEDS ORDERED: FUROSEMIDE 40 MG/4 ML INJECTABLE VIAL IVPUSH ONE (11:00)
[2021-01-03] MEDS ORDERED: FUROSEMIDE 40 MG/4 ML INJECTABLE VIAL ONE ×2 (11:30→18:49)
[2021-01-03 11:49] LABS: BASO % 0.9 % (0-2.0); EOS % 1.8 % (0-4.5); HEMATOCRIT 35.7 % (32.4-45.2); HEMOGLOBIN 11.7 GM/dL (10.7-15.3); LYMPH % 28.4 % (8-40); MCH 30.5 pg (25.7-33.7); MCHC 32.6 g/dl (32.0-36.0); MEAN CELL VOLUME 93.5 fl (80-96); MEAN PLT VOLUME 7.5 fl (7.5-11.1); MONO % 11.3 % (3.8-10.2); NEUT % 57.6 % (42.8-82.8); PLATELET COUNT 187 10^3/uL (134-434); RBC 3.82 M/mm3 (3.60-5.2); WHITE BLOOD COUNT 5.7 K/mm3 (4.0-10.0)
[2021-01-03 12:11] LABS: ALBUMIN 3.8 g/dl (3.4-5.0); BLOOD UREA NITROGEN 26.6 mg/dL (7-18); CALCIUM 8.9 mg/dL (8.5-10.1)
[2021-01-03 12:14] LABS: CREATININE 1.1 mg/dL (0.55-1.3)
[2021-01-03 12:16] LABS: BILIRUBIN,TOTAL 1.2 mg/dL (0.2-1); TOT PROT 7.3 g/dl (6.4-8.2)
[2021-01-03 13:06] LABS: N-TERMINAL BNP 1566.8 pg/ml (5-450)
[2021-01-03] MEDS: FUROSEMIDE 40 MG/4 ML INJECTABLE VIAL IVPUSH SCH (14:55)
[2021-01-03] MEDS: ATORVASTATIN CA 20 MG TABLET (FP) PO SCH (22:35)
[2021-01-03] MEDS: APIXABAN 2.5 MG TABLET PO SCH (22:35)
[2021-01-03] MEDS: BUDESONIDE/FORMETEROL FUMARATE 160/4.5 mcg INHALER IH SCH (23:29)
[2021-01-04] MEDS: FUROSEMIDE 40 MG/4 ML INJECTABLE VIAL IVPUSH SCH ×2 (05:47→14:49)
[2021-01-04 09:13] LABS: BASO % 0.8 % (0-2.0); EOS % 2.1 % (0-4.5); HEMATOCRIT 36.1 % (32.4-45.2); HEMOGLOBIN 11.8 GM/dL (10.7-15.3); LYMPH % 33.1 % (8-40); MCH 30.7 pg (25.7-33.7); MCHC 32.8 g/dl (32.0-36.0); MEAN CELL VOLUME 93.7 fl (80-96); MEAN PLT VOLUME 8.2 fl (7.5-11.1); MONO % 11.7 % (3.8-10.2); NEUT % 52.3 % (42.8-82.8); PLATELET COUNT 180 10^3/uL (134-434); RBC 3.85 M/mm3 (3.60-5.2); RDW 14.7 % (11.6-15.6); WHITE BLOOD COUNT 5.4 K/mm3 (4.0-10.0)
[2021-01-04 09:36] LABS: CALCIUM 8.7 mg/dL (8.5-10.1)
[2021-01-04 09:37] LABS: ALBUMIN 3.3 g/dl (3.4-5.0); BLOOD UREA NITROGEN 29.4 mg/dL (7-18); MAGNESIUM 2.1 mg/dL (1.8-2.4)
[2021-01-04 09:40] LABS: BILIRUBIN,TOTAL 1.4 mg/dL (0.2-1); CREATININE 1.3 mg/dL (0.55-1.3); TOT PROT 6.7 g/dl (6.4-8.2)
[2021-01-04] MEDS: BUDESONIDE/FORMETEROL FUMARATE 160/4.5 mcg INHALER IH SCH ×2 (10:18→21:20)
[2021-01-04] MEDS: LISINOPRIL 5 MG TABLET PO SCH (10:19)
[2021-01-04] MEDS: APIXABAN 2.5 MG TABLET PO SCH ×2 (10:19→21:20)
[2021-01-04] MEDS: ASPIRIN 81 MG CHEWABLE TABLETS PO SCH (10:19)
[2021-01-04] MEDS ORDERED: MAGNESIUM HYDROX 2400MG/30ML ORAL SUSPENSION 30 ML CUP PO PRN (21:09)
[2021-01-04] MEDS: ATORVASTATIN CA 20 MG TABLET (FP) PO SCH (21:20)
[2021-01-05] MEDS: FUROSEMIDE 40 MG/4 ML INJECTABLE VIAL IVPUSH SCH ×2 (05:56→13:33)
[2021-01-05 06:57] LABS: BASO % 0.9 % (0-2.0); HEMATOCRIT 35.7 % (32.4-45.2); HEMOGLOBIN 11.8 GM/dL (10.7-15.3); LYMPH % 30.2 % (8-40); MCH 30.3 pg (25.7-33.7); MEAN CELL VOLUME 91.9 fl (80-96); MEAN PLT VOLUME 7.9 fl (7.5-11.1); MONO % 12.4 % (3.8-10.2); NEUT % 54.5 % (42.8-82.8); PLATELET COUNT 179 10^3/uL (134-434); RBC 3.89 M/mm3 (3.60-5.2); RDW 14.4 % (11.6-15.6); WHITE BLOOD COUNT 6.1 K/mm3 (4.0-10.0)
[2021-01-05 07:21] LABS: ALBUMIN 3.3 g/dl (3.4-5.0); BLOOD UREA NITROGEN 31.6 mg/dL (7-18); CALCIUM 8.5 mg/dL (8.5-10.1)
[2021-01-05 07:24] LABS: CREATININE 1.4 mg/dL (0.55-1.3)
[2021-01-05 07:26] LABS: BILIRUBIN,TOTAL 1.3 mg/dL (0.2-1); TOT PROT 6.5 g/dl (6.4-8.2)
[2021-01-05] MEDS ORDERED: ACETAMINOPHEN 500 MG TABLET (FP) PO ONE (09:30)
[2021-01-05] MEDS: ASPIRIN 81 MG CHEWABLE TABLETS PO SCH (09:41)
[2021-01-05] MEDS: APIXABAN 2.5 MG TABLET PO SCH ×2 (09:41→21:26)
[2021-01-05] MEDS: LISINOPRIL 5 MG TABLET PO SCH (09:41)
[2021-01-05] MEDS: BUDESONIDE/FORMETEROL FUMARATE 160/4.5 mcg INHALER IH SCH ×2 (09:42→21:26)
[2021-01-05] MEDS ORDERED: ACETAMINOPHEN 500 MG TABLET (FP) PO PRN (11:09)
[2021-01-05] MEDS: ATORVASTATIN CA 20 MG TABLET (FP) PO SCH (21:26)
[2021-01-06] MEDS: FUROSEMIDE 40 MG/4 ML INJECTABLE VIAL IVPUSH SCH (06:31)
[2021-01-06 08:56] LABS: EOS % 2.7 % (0-4.5); HEMATOCRIT 37.8 % (32.4-45.2); HEMOGLOBIN 12.3 GM/dL (10.7-15.3); LYMPH % 29.6 % (8-40); MCH 30.7 pg (25.7-33.7); MCHC 32.6 g/dl (32.0-36.0); MEAN PLT VOLUME 8.2 fl (7.5-11.1); MONO % 12.1 % (3.8-10.2); NEUT % 54.6 % (42.8-82.8); PLATELET COUNT 196 10^3/uL (134-434); RBC 4.02 M/mm3 (3.60-5.2); RDW 14.6 % (11.6-15.6); WHITE BLOOD COUNT 6.3 K/mm3 (4.0-10.0)
[2021-01-06] MEDS: APIXABAN 2.5 MG TABLET PO SCH ×2 (09:03→21:28)
[2021-01-06] MEDS: ASPIRIN 81 MG CHEWABLE TABLETS PO SCH (09:03)
[2021-01-06] MEDS: BUDESONIDE/FORMETEROL FUMARATE 160/4.5 mcg INHALER IH SCH ×2 (09:06→21:28)
[2021-01-06 09:26] LABS: ALBUMIN 3.3 g/dl (3.4-5.0); CALCIUM 8.6 mg/dL (8.5-10.1)
[2021-01-06 09:30] LABS: CREATININE 1.4 mg/dL (0.55-1.3)
[2021-01-06 09:31] LABS: BILIRUBIN,TOTAL 1.3 mg/dL (0.2-1); TOT PROT 6.8 g/dl (6.4-8.2)
[2021-01-06] MEDS: FUROSEMIDE 40 MG TABLET (FP) PO SCH (13:46)
[2021-01-06] MEDS: LISINOPRIL 5 MG TABLET PO SCH (17:51)
[2021-01-06] MEDS: ATORVASTATIN CA 20 MG TABLET (FP) PO SCH (21:28)
[2021-01-07] MEDS: FUROSEMIDE 40 MG TABLET (FP) PO SCH (05:57)
[2021-01-07] MEDS: BUDESONIDE/FORMETEROL FUMARATE 160/4.5 mcg INHALER IH SCH (10:04)
[2021-01-07] MEDS: LISINOPRIL 5 MG TABLET PO SCH (10:04)
[2021-01-07] MEDS: APIXABAN 2.5 MG TABLET PO SCH (10:04)
[2021-01-07] MEDS: ASPIRIN 81 MG CHEWABLE TABLETS PO SCH (10:04)
[2021-01-07 14:00] VITALS: BP 112/68; PULSE 92; TEMP 98
== END 2021-01-07 14:03 | disposition home or self-care (01) | DRG 292 ==
LOC: JER 09:35 → JERBED 12:44 → J4S 21:54
PROVIDERS: ADMIT Family Medicine; ATTEND Family Medicine
DX: I11.0 Hypertensive heart disease with heart failure (principal); I48.19 Other persistent atrial fibrillation; I24.8 Other forms of acute ischemic heart disease; I50.33 Acute on chronic diastolic (congestive) heart failure; E78.5 Hyperlipidemia, unspecified; E11.9 Type 2 diabetes mellitus without complications; J45.909 Unspecified asthma, uncomplicated; I27.20 Pulmonary hypertension, unspecified; R91.1 Solitary pulmonary nodule; J44.9 Chronic obstructive pulmonary disease, unspecified; E04.2 Nontoxic multinodular goiter
CPT/HCPCS: 36415; 71045-TC-FY; 80053; 82550; 83735; 83880; 84443; 84484; 85025; 93005; 93010; 97116-GP; 97161-GP; 99285-25; C9803; U0003; U0005

== ENCOUNTER 2021-04-30 23:55 | Inpatient (IN) | payer OTHER ==
[2021-05-01] MEDS ORDERED: ACETAMINOPHEN 500 MG TABLET (FP) PO ONE (02:22)
[2021-05-01 02:28] LABS: EOS % 3.4 % (0-4.5); HEMATOCRIT 33.1 % (32.4-45.2); LYMPH % 24.4 % (8-40); MCH 30.8 pg (25.7-33.7); MCHC 33.2 g/dl (32.0-36.0); MEAN CELL VOLUME 92.8 fl (80-96); MEAN PLT VOLUME 7.8 fl (7.5-11.1); MONO % 10.4 % (3.8-10.2); NEUT % 60.8 % (42.8-82.8); PLATELET COUNT 207 10^3/uL (134-434); RBC 3.57 M/mm3 (3.60-5.2); RDW 14.7 % (11.6-15.6); WHITE BLOOD COUNT 6.3 K/mm3 (4.0-10.0)
[2021-05-01] MEDS ORDERED: ACETAMINOPHEN 325 MG TABLET (FP) ONE (02:43)
[2021-05-01 02:49] LABS: CALCIUM 8.6 mg/dL (8.5-10.1)
[2021-05-01 02:50] LABS: ALBUMIN 2.8 g/dl (3.4-5.0); BLOOD UREA NITROGEN 45.4 mg/dL (7-18); MAGNESIUM 2.2 mg/dL (1.8-2.4)
[2021-05-01 02:53] LABS: CREATININE 1.4 mg/dL (0.55-1.3)
[2021-05-01 02:55] LABS: BILIRUBIN,TOTAL 0.6 mg/dL (0.2-1); TOT PROT 6.6 g/dl (6.4-8.2)
[2021-05-01] MEDS ORDERED: FUROSEMIDE 40 MG/4 ML INJECTABLE VIAL IVPUSH ONE (03:00)
[2021-05-01 03:09] LABS: INR 1.2 (0.83-1.09); PROTHROMBIN TIME (PATIENT) 13.5 SEC (9.7-13.0)
[2021-05-01 03:11] LABS: ACTIVATED PTT 31.8 SECONDS (25.2-36.5)
[2021-05-01] MEDS ORDERED: FUROSEMIDE 40 MG/4 ML INJECTABLE VIAL ONE (03:41)
[2021-05-01] MEDS: FUROSEMIDE 40 MG/4 ML INJECTABLE VIAL IVPUSH SCH (13:50)
[2021-05-01 17:02] LABS: PH,URINE 5.5 (5.0-8.0); URINE APPEARANCE CLEAR; URINE BILIRUBIN NEGATIVE (NEGATIVE); URINE COLOR YELLOW; URINE GLUCOSE (UA) NEGATIVE (NEGATIVE); URINE KETONE NEGATIVE (NEGATIVE); URINE LEUK ESTERASE NEGATIVE (NEGATIVE); URINE NITRITE NEGATIVE (NEGATIVE); URINE PROTEIN NEGATIVE (NEGATIVE); URINE UROBILINOGEN 0.2 mg/dL (0.2-1.0)
[2021-05-01] MEDS: APIXABAN 2.5 MG TABLET PO SCH (21:39)
[2021-05-01] MEDS: ATORVASTATIN CA 20 MG TABLET (FP) PO SCH (21:39)
[2021-05-02] MEDS ORDERED: ACETAMINOPHEN 325 MG TABLET (FP) PO PRN (07:18)
[2021-05-02] MEDS ORDERED: PT OWN MED DRAWER 7, Y5N ONE (09:40)
[2021-05-02] MEDS: ASPIRIN 81 MG CHEWABLE TABLETS PO SCH (09:42)
[2021-05-02] MEDS: TIOTROPIUM BROMIDE 2.5 MCG (SPIRIVA) RESPIMAT INHALER IH SCH (09:43)
[2021-05-02] MEDS: APIXABAN 2.5 MG TABLET PO SCH ×2 (09:43→21:28)
[2021-05-02] MEDS: FUROSEMIDE 40 MG/4 ML INJECTABLE VIAL IVPUSH SCH (09:43)
[2021-05-02] MEDS ORDERED: LISINOPRIL 5 MG TABLET PO SCH (10:00)
[2021-05-02 10:06] LABS: BASO % 0.8 % (0-2.0); EOS % 2.5 % (0-4.5); HEMATOCRIT 32.9 % (32.4-45.2); HEMOGLOBIN 10.8 GM/dL (10.7-15.3); LYMPH % 28.5 % (8-40); MCH 31.1 pg (25.7-33.7); MCHC 32.8 g/dl (32.0-36.0); MEAN CELL VOLUME 94.8 fl (80-96); MEAN PLT VOLUME 7.9 fl (7.5-11.1); MONO % 10.2 % (3.8-10.2); PLATELET COUNT 195 10^3/uL (134-434); RBC 3.47 M/mm3 (3.60-5.2); RDW 14.5 % (11.6-15.6); WHITE BLOOD COUNT 5.6 K/mm3 (4.0-10.0)
[2021-05-02 11:04] LABS: CALCIUM 8.7 mg/dL (8.5-10.1)
[2021-05-02 11:05] LABS: ALBUMIN 2.9 g/dl (3.4-5.0); BLOOD UREA NITROGEN 30.6 mg/dL (7-18)
[2021-05-02 11:08] LABS: CREATININE 1.2 mg/dL (0.55-1.3)
[2021-05-02 11:09] LABS: BILIRUBIN,TOTAL 0.8 mg/dL (0.2-1); TOT PROT 6.4 g/dl (6.4-8.2)
[2021-05-02 16:58] VITALS: BMI 36.6
[2021-05-02] MEDS: ATORVASTATIN CA 20 MG TABLET (FP) PO SCH (21:27)
[2021-05-03 08:21] LABS: ALBUMIN 2.8 g/dl (3.4-5.0); CALCIUM 8.4 mg/dL (8.5-10.1)
[2021-05-03 08:22] LABS: BILIRUBIN,TOTAL 0.8 mg/dL (0.2-1); BLOOD UREA NITROGEN 36.2 mg/dL (7-18); CREATININE 1.5 mg/dL (0.55-1.3); TOT PROT 6.3 g/dl (6.4-8.2)
[2021-05-03] MEDS: FUROSEMIDE 40 MG TABLET (FP) PO SCH (09:48)
[2021-05-03] MEDS: ASPIRIN 81 MG CHEWABLE TABLETS PO SCH (09:48)
[2021-05-03] MEDS: LISINOPRIL 5 MG TABLET PO SCH (09:49)
[2021-05-03] MEDS: APIXABAN 2.5 MG TABLET PO SCH ×2 (09:49→21:20)
[2021-05-03] MEDS: TIOTROPIUM BROMIDE 2.5 MCG (SPIRIVA) RESPIMAT INHALER IH SCH (12:43)
[2021-05-03] MEDS: ATORVASTATIN CA 20 MG TABLET (FP) PO SCH (21:20)
[2021-05-03] MEDS: MAGNESIUM HYDROX 2400MG/30ML ORAL SUSPENSION 30 ML CUP PO PRN (23:00)
[2021-05-04] MEDS ORDERED: PT OWN MED DRAWER 7, Y5N ONE (09:33)
[2021-05-04] MEDS: APIXABAN 2.5 MG TABLET PO SCH ×2 (09:44→21:02)
[2021-05-04] MEDS: ASPIRIN 81 MG CHEWABLE TABLETS PO SCH (09:44)
[2021-05-04] MEDS: TIOTROPIUM BROMIDE 2.5 MCG (SPIRIVA) RESPIMAT INHALER IH SCH (09:45)
[2021-05-04] MEDS: FUROSEMIDE 40 MG TABLET (FP) PO SCH (09:55)
[2021-05-04] MEDS: LISINOPRIL 5 MG TABLET PO SCH (10:58)
[2021-05-04] MEDS ORDERED: DOCUSATE SODIUM 100 MG CAPSULE (FP) PO ONE (13:00)
[2021-05-04] MEDS: MAGNESIUM HYDROX 2400MG/30ML ORAL SUSPENSION 30 ML CUP PO PRN (13:19)
[2021-05-04] MEDS ORDERED: ACETAMINOPHEN 325 MG TABLET (FP) PO PRN (19:21)
[2021-05-04] MEDS: ATORVASTATIN CA 20 MG TABLET (FP) PO SCH (21:02)
[2021-05-04] MEDS ORDERED: MAG HYDROX/AL HYDROX/SIMETH 30 ML UNIT-DOSE CUP PO ONE (23:15)
[2021-05-05 07:18] LABS: BASO % 0.6 % (0-2.0); EOS % 3.8 % (0-4.5); HEMATOCRIT 31.9 % (32.4-45.2); HEMOGLOBIN 10.3 GM/dL (10.7-15.3); LYMPH % 25.9 % (8-40); MCH 30.8 pg (25.7-33.7); MCHC 32.4 g/dl (32.0-36.0); MEAN CELL VOLUME 95.2 fl (80-96); MEAN PLT VOLUME 7.7 fl (7.5-11.1); MONO % 8.3 % (3.8-10.2); NEUT % 61.4 % (42.8-82.8); PLATELET COUNT 181 10^3/uL (134-434); RBC 3.35 M/mm3 (3.60-5.2); RDW 14.1 % (11.6-15.6); WHITE BLOOD COUNT 6.6 K/mm3 (4.0-10.0)
[2021-05-05 08:05] LABS: CALCIUM 8.4 mg/dL (8.5-10.1)
[2021-05-05 08:06] LABS: ALBUMIN 2.7 g/dl (3.4-5.0); BLOOD UREA NITROGEN 37.2 mg/dL (7-18)
[2021-05-05 08:09] LABS: CREATININE 1.4 mg/dL (0.55-1.3)
[2021-05-05 08:11] LABS: BILIRUBIN,TOTAL 0.8 mg/dL (0.2-1); TOT PROT 6.3 g/dl (6.4-8.2)
[2021-05-05] MEDS: ASPIRIN 81 MG CHEWABLE TABLETS PO SCH (09:52)
[2021-05-05] MEDS: FUROSEMIDE 40 MG TABLET (FP) PO SCH (09:52)
[2021-05-05] MEDS: APIXABAN 2.5 MG TABLET PO SCH ×2 (09:53→21:00)
[2021-05-05] MEDS: MAGNESIUM HYDROX 2400MG/30ML ORAL SUSPENSION 30 ML CUP PO PRN (09:53)
[2021-05-05] MEDS: LISINOPRIL 5 MG TABLET PO SCH (09:55)
[2021-05-05] MEDS: TIOTROPIUM BROMIDE 2.5 MCG (SPIRIVA) RESPIMAT INHALER IH SCH (09:59)
[2021-05-05] MEDS: ATORVASTATIN CA 20 MG TABLET (FP) PO SCH (21:00)
[2021-05-06] MEDS: FUROSEMIDE 40 MG TABLET (FP) PO SCH (09:06)
[2021-05-06] MEDS: ASPIRIN 81 MG CHEWABLE TABLETS PO SCH (09:06)
[2021-05-06] MEDS: LISINOPRIL 5 MG TABLET PO SCH (09:06)
[2021-05-06] MEDS: APIXABAN 2.5 MG TABLET PO SCH (09:06)
[2021-05-06] MEDS: TIOTROPIUM BROMIDE 2.5 MCG (SPIRIVA) RESPIMAT INHALER IH SCH (09:10)
[2021-05-06] MEDS ORDERED: CEFUROXIME AXETIL 500 MG TABLET PO SCH (10:00)
[2021-05-06 20:28] VITALS: BP 124/62; PULSE 90; TEMP 98.5
== END 2021-05-06 20:30 | DRG 291 ==
LOC: JER 23:55 → JERBED 05-01 03:04 → J8W 05-01 12:20 → J4W 05-03 02:07
PROVIDERS: ADMIT Internal Medicine; ATTEND Family Medicine
DX: I13.0 Hypertensive heart and chronic kidney disease with heart failure and stage 1 through stage 4 chronic kidney disease, or unspecified chronic kidney disease (principal); I50.33 Acute on chronic diastolic (congestive) heart failure; I48.19 Other persistent atrial fibrillation; Z79.01 Long term (current) use of anticoagulants; J45.909 Unspecified asthma, uncomplicated; E78.5 Hyperlipidemia, unspecified; N28.1 Cyst of kidney, acquired; E66.9 Obesity, unspecified; Z68.39 Body mass index [BMI] 39.0-39.9, adult; E11.22 Type 2 diabetes mellitus with diabetic chronic kidney disease; N18.9 Chronic kidney disease, unspecified
CPT/HCPCS: 36415; 71045-TC-FY; 80053; 81003; 82550; 82962; 83735; 83880; 84484; 85025; 85610; 85730; 87086; 87186; 93005; 93010; 93306-TC; 97116-GP; 97162-GP; 99285-25; C9803; U0003; U0005

== ENCOUNTER 2021-10-18 19:55 | Inpatient (IN) | payer OTHER ==
[2021-10-18 21:43] LABS: BASO % 0.6 % (0-2.0); EOS % 1.7 % (0-4.5); HEMATOCRIT 32.3 % (32.4-45.2); HEMOGLOBIN 10.3 GM/dL (10.7-15.3); LYMPH % 16.8 % (8-40); MCHC 31.9 g/dl (32.0-36.0); MEAN CELL VOLUME 94.1 fl (80-96); MEAN PLT VOLUME 8.1 fl (7.5-11.1); MONO % 9.9 % (3.8-10.2); PLATELET COUNT 192 10^3/uL (134-434); RBC 3.43 M/mm3 (3.60-5.2); RDW 14.1 % (11.6-15.6); WHITE BLOOD COUNT 5.5 K/mm3 (4.0-10.0)
[2021-10-18 21:52] LABS: ALBUMIN 3.5 g/dl (3.4-5.0); BLOOD UREA NITROGEN 35.2 mg/dL (7-18); CALCIUM 9.1 mg/dL (8.5-10.1); MAGNESIUM 2.6 mg/dL (1.8-2.4)
[2021-10-18 21:55] LABS: CREATININE 1.1 mg/dL (0.55-1.3); PHOSPHOROUS 3.7 mg/dL (2.5-4.9)
[2021-10-18 21:57] LABS: BILIRUBIN,TOTAL 0.9 mg/dL (0.2-1); TOT PROT 6.7 g/dl (6.4-8.2)
[2021-10-18 22:03] LABS: N-TERMINAL BNP 1584.2 pg/ml (5-450)
[2021-10-18 22:05] LABS: INR 1.17 (0.83-1.09); PROTHROMBIN TIME (PATIENT) 13.5 SEC (9.7-13.0)
[2021-10-18] MEDS ORDERED: FUROSEMIDE 40 MG/4 ML INJECTABLE VIAL IVPUSH ONE (22:42)
[2021-10-18] MEDS ORDERED: diphenhydrAMINE HCL 25 MG CAPSULE (FP) PO ONE ×2 (22:43→23:30)
[2021-10-18] MEDS ORDERED: FUROSEMIDE 40 MG/4 ML INJECTABLE VIAL ONE (23:31)
[2021-10-19 00:37] LABS: EPI CELLS 18 /uL (0-25.1); HYALINE CASTS 1 /uL (0-3.1); URINE APPEARANCE CLEAR; URINE BACTERIA 21 /uL (0-1359); URINE BILIRUBIN NEGATIVE (NEGATIVE); URINE COLOR YELLOW; URINE GLUCOSE (UA) NEGATIVE (NEGATIVE); URINE KETONE NEGATIVE (NEGATIVE); URINE LEUK ESTERASE NEGATIVE (NEGATIVE); URINE NITRITE NEGATIVE (NEGATIVE); URINE PROTEIN NEGATIVE (NEGATIVE); URINE RBC 33 /uL (0-23.9); URINE WBC 6 /uL (0-25.8)
[2021-10-19] MEDS ORDERED: ALBUTEROL SO4 HFA INHALER IH PRN (02:03)
[2021-10-19] MEDS ORDERED: ACETAMINOPHEN 325 MG TABLET (FP) PO PRN (04:04)
[2021-10-19 08:33] LABS: BASO % 0.3 % (0-2.0); EOS % 2.3 % (0-4.5); HEMATOCRIT 32.8 % (32.4-45.2); HEMOGLOBIN 10.6 GM/dL (10.7-15.3); LYMPH % 29.5 % (8-40); MCH 30.4 pg (25.7-33.7); MCHC 32.3 g/dl (32.0-36.0); MEAN CELL VOLUME 94.1 fl (80-96); MEAN PLT VOLUME 7.6 fl (7.5-11.1); MONO % 10.1 % (3.8-10.2); NEUT % 57.8 % (42.8-82.8); PLATELET COUNT 180 10^3/uL (134-434); RBC 3.49 M/mm3 (3.60-5.2); RDW 14.4 % (11.6-15.6); WHITE BLOOD COUNT 3.9 K/mm3 (4.0-10.0)
[2021-10-19 08:38] LABS: ALBUMIN 3.2 g/dl (3.4-5.0); CALCIUM 8.7 mg/dL (8.5-10.1)
[2021-10-19 08:39] LABS: BLOOD UREA NITROGEN 29.9 mg/dL (7-18)
[2021-10-19 08:42] LABS: CREATININE 1.1 mg/dL (0.55-1.3)
[2021-10-19 08:43] LABS: BILIRUBIN,TOTAL 1.2 mg/dL (0.2-1); TOT PROT 6.3 g/dl (6.4-8.2)
[2021-10-19] MEDS ORDERED: ASPIRIN 81 MG CHEWABLE TABLETS PO SCH (10:00)
[2021-10-19] MEDS: BUDESONIDE/FORMETEROL FUMARATE 160/4.5 mcg INHALER IH SCH ×2 (10:00→22:19)
[2021-10-19] MEDS ORDERED: TIOTROPIUM BROMIDE 2.5 MCG (SPIRIVA) RESPIMAT INHALER IH SCH (10:00)
[2021-10-19] MEDS ORDERED: FUROSEMIDE 40 MG TABLET (FP) PO SCH (10:00)
[2021-10-19] MEDS ORDERED: ASPIRIN 81 MG CHEWABLE TABLETS ONE (12:12)
[2021-10-19] MEDS ORDERED: FUROSEMIDE 40 MG TABLET (FP) ONE (12:13)
[2021-10-19] MEDS ORDERED: MAG HYDROX/AL HYDROX/SIMETH 30 ML UNIT-DOSE CUP ONE (16:42)
[2021-10-19] MEDS ORDERED: ALBUTEROL SO4 HFA INHALER IH ONE (18:54)
[2021-10-19] MEDS ORDERED: APIXABAN 5 MG TABLET ONE (22:03)
[2021-10-19] MEDS ORDERED: ATORVASTATIN CA 20 MG TABLET (FP) ONE (22:03)
[2021-10-19] MEDS: APIXABAN 5 MG TABLET PO SCH (22:18)
[2021-10-19] MEDS: ATORVASTATIN CA 20 MG TABLET (FP) PO SCH (22:19)
[2021-10-20] MEDS ORDERED: ACETAMINOPHEN 325 MG TABLET (FP) PO PRN (01:14)
[2021-10-20] MEDS ORDERED: ALBUTEROL SO4 HFA INHALER IH PRN (01:14)
[2021-10-20 08:52] LABS: BASO % 0.3 % (0-2.0); EOS % 1.8 % (0-4.5); HEMATOCRIT 33.4 % (32.4-45.2); HEMOGLOBIN 10.9 GM/dL (10.7-15.3); MCH 30.8 pg (25.7-33.7); MCHC 32.8 g/dl (32.0-36.0); MEAN PLT VOLUME 7.8 fl (7.5-11.1); MONO % 9.2 % (3.8-10.2); NEUT % 65.7 % (42.8-82.8); PLATELET COUNT 171 10^3/uL (134-434); RBC 3.55 M/mm3 (3.60-5.2); RDW 14.1 % (11.6-15.6); WHITE BLOOD COUNT 5.2 K/mm3 (4.0-10.0)
[2021-10-20] MEDS: ASPIRIN 81 MG CHEWABLE TABLETS PO SCH (09:35)
[2021-10-20] MEDS: APIXABAN 5 MG TABLET PO SCH ×2 (09:35→21:11)
[2021-10-20 09:37] LABS: CALCIUM 8.9 mg/dL (8.5-10.1)
[2021-10-20 09:38] LABS: ALBUMIN 3.2 g/dl (3.4-5.0); BLOOD UREA NITROGEN 29.5 mg/dL (7-18)
[2021-10-20 09:40] LABS: BILIRUBIN,TOTAL 1.2 mg/dL (0.2-1)
[2021-10-20 09:41] LABS: TOT PROT 6.2 g/dl (6.4-8.2)
[2021-10-20 09:43] LABS: CREATININE 1.2 mg/dL (0.55-1.3)
[2021-10-20] MEDS: FUROSEMIDE 40 MG TABLET (FP) PO SCH (10:37)
[2021-10-20] MEDS: BUDESONIDE/FORMETEROL FUMARATE 160/4.5 mcg INHALER IH SCH ×2 (12:22→21:11)
[2021-10-20] MEDS: TIOTROPIUM BROMIDE 2.5 MCG (SPIRIVA) RESPIMAT INHALER IH SCH (12:22)
[2021-10-20] MEDS ORDERED: FUROSEMIDE 40 MG/4 ML INJECTABLE VIAL IVPUSH ONE ×2 (15:00)
[2021-10-20] MEDS: ATORVASTATIN CA 20 MG TABLET (FP) PO SCH (21:11)
[2021-10-21] MEDS: TIOTROPIUM BROMIDE 2.5 MCG (SPIRIVA) RESPIMAT INHALER IH SCH (09:35)
[2021-10-21] MEDS: ASPIRIN 81 MG CHEWABLE TABLETS PO SCH (09:36)
[2021-10-21] MEDS: FUROSEMIDE 40 MG TABLET (FP) PO SCH (09:36)
[2021-10-21] MEDS: BUDESONIDE/FORMETEROL FUMARATE 160/4.5 mcg INHALER IH SCH ×2 (09:36→21:30)
[2021-10-21] MEDS: APIXABAN 5 MG TABLET PO SCH ×2 (09:37→21:30)
[2021-10-21 20:19] VITALS: BMI 37.5
[2021-10-21] MEDS: ATORVASTATIN CA 20 MG TABLET (FP) PO SCH (21:30)
[2021-10-22 09:42] LABS: HEMATOCRIT 33.3 % (32.4-45.2); HEMOGLOBIN 10.6 GM/dL (10.7-15.3); MCH 30.2 pg (25.7-33.7); MCHC 31.8 g/dl (32.0-36.0); PLATELET COUNT 174 10^3/uL (134-434); RBC 3.51 M/mm3 (3.60-5.2); RDW 14.1 % (11.6-15.6); WHITE BLOOD COUNT 4.6 K/mm3 (4.0-10.0)
[2021-10-22] MEDS: ZINC SULFATE 220 MG CAPSULE (FP) PO SCH (10:04)
[2021-10-22] MEDS: MULTIVITAMINS THER W-MINERALS COMBO TABLET (FP) PO SCH (10:04)
[2021-10-22] MEDS: BUDESONIDE/FORMETEROL FUMARATE 160/4.5 mcg INHALER IH SCH ×2 (10:04→21:03)
[2021-10-22] MEDS: ASPIRIN 81 MG CHEWABLE TABLETS PO SCH (10:04)
[2021-10-22] MEDS: ASCORBIC ACID 250 MG TABLET (FP) PO SCH (10:04)
[2021-10-22] MEDS: APIXABAN 5 MG TABLET PO SCH ×2 (10:04→21:03)
[2021-10-22] MEDS: TIOTROPIUM BROMIDE 2.5 MCG (SPIRIVA) RESPIMAT INHALER IH SCH (10:04)
[2021-10-22] MEDS: FUROSEMIDE 40 MG TABLET (FP) PO SCH (10:04)
[2021-10-22 10:14] LABS: MAGNESIUM 2.4 mg/dL (1.8-2.4)
[2021-10-22 10:19] LABS: CALCIUM 8.3 mg/dL (8.5-10.1)
[2021-10-22] MEDS: ATORVASTATIN CA 20 MG TABLET (FP) PO SCH (21:03)
[2021-10-23] MEDS: MULTIVITAMINS THER W-MINERALS COMBO TABLET (FP) PO SCH (10:29)
[2021-10-23] MEDS: APIXABAN 5 MG TABLET PO SCH (10:29)
[2021-10-23] MEDS: ASPIRIN 81 MG CHEWABLE TABLETS PO SCH (10:29)
[2021-10-23] MEDS: ZINC SULFATE 220 MG CAPSULE (FP) PO SCH (10:29)
[2021-10-23] MEDS: FUROSEMIDE 40 MG TABLET (FP) PO SCH (10:29)
[2021-10-23] MEDS: ASCORBIC ACID 250 MG TABLET (FP) PO SCH (10:30)
[2021-10-23] MEDS: BUDESONIDE/FORMETEROL FUMARATE 160/4.5 mcg INHALER IH SCH (10:33)
[2021-10-23] MEDS: TIOTROPIUM BROMIDE 2.5 MCG (SPIRIVA) RESPIMAT INHALER IH SCH (10:33)
[2021-10-23 14:58] VITALS: BP 127/78; PULSE 84; TEMP 98.2
== END 2021-10-23 20:33 | DRG 291 ==
LOC: JER 19:55 → JERBED 21:19 → J6S 10-20 00:47
PROVIDERS: ADMIT Internal Medicine; ATTEND Family Medicine
DX: I13.0 Hypertensive heart and chronic kidney disease with heart failure and stage 1 through stage 4 chronic kidney disease, or unspecified chronic kidney disease (principal); I50.33 Acute on chronic diastolic (congestive) heart failure; N18.4 Chronic kidney disease, stage 4 (severe); I48.19 Other persistent atrial fibrillation; J45.909 Unspecified asthma, uncomplicated; E11.22 Type 2 diabetes mellitus with diabetic chronic kidney disease; J44.9 Chronic obstructive pulmonary disease, unspecified; E78.5 Hyperlipidemia, unspecified; L89.312 Pressure ulcer of right buttock, stage 2; K21.9 Gastro-esophageal reflux disease without esophagitis; I25.10 Atherosclerotic heart disease of native coronary artery without angina pectoris; R62.7 Adult failure to thrive; E66.9 Obesity, unspecified; Z68.36 Body mass index [BMI] 36.0-36.9, adult
CPT/HCPCS: 0241U-QW; 36415; 70450-TC; 71045-TC-FY; 73502-TC-LT-FY; 80048; 80053; 80061; 81003; 82728; 83036; 83540; 83550; 83735; 83880; 84100; 84443; 84484; 85025; 85027; 85610; 85730; 87086; 93005; 93010; 97116-GP; 97162-GP; 99285-25; C9803-CS; U0003; U0005

== ENCOUNTER 2021-12-04 07:19 | Inpatient (IN) | payer OTHER ==
[2021-12-04 10:26] LABS: BASO % 0.6 % (0-2.0); EOS % 4.6 % (0-4.5); HEMATOCRIT 35.3 % (32.4-45.2); HEMOGLOBIN 11.4 GM/dL (10.7-15.3); LYMPH % 21.1 % (8-40); MCH 30.7 pg (25.7-33.7); MCHC 32.3 g/dl (32.0-36.0); MEAN CELL VOLUME 95.1 fl (80-96); MEAN PLT VOLUME 8.2 fl (7.5-11.1); MONO % 11.3 % (3.8-10.2); NEUT % 62.4 % (42.8-82.8); PLATELET COUNT 211 10^3/uL (134-434); RBC 3.71 M/mm3 (3.60-5.2); RDW 14.8 % (11.6-15.6); WHITE BLOOD COUNT 5.8 K/mm3 (4.0-10.0)
[2021-12-04 10:44] LABS: CHLORIDE 103 mmol/L (98-107); SODIUM 135 mmol/L (136-145)
[2021-12-04 10:46] LABS: CALCIUM 9.1 mg/dL (8.5-10.1)
[2021-12-04 10:47] LABS: ALBUMIN 3.4 g/dl (3.4-5.0); BLOOD UREA NITROGEN 19.5 mg/dL (7-18); CO2 30 mmol/L (21-32); GLUCOSE,RANDOM 88 mg/dL (74-106)
[2021-12-04 10:50] LABS: CREATININE 1.2 mg/dL (0.55-1.3); SGOT/AST 75 U/L (15-37)
[2021-12-04 10:52] LABS: TOT PROT 7.8 g/dl (6.4-8.2)
[2021-12-04 10:53] LABS: ALK PHOS 71 U/L (45-117)
[2021-12-04 10:55] LABS: N-TERMINAL BNP 813.1 pg/ml (5-450)
[2021-12-04 10:59] LABS: ANION GAP 3 MMOL/L (8-16); SGPT/ALT 24 U/L (13-61)
[2021-12-04 10:59] LABS: URINE APPEARANCE Error; URINE BILIRUBIN NEGATIVE (NEGATIVE); URINE COLOR YELLOW; URINE GLUCOSE (UA) NEGATIVE (NEGATIVE); URINE KETONE NEGATIVE (NEGATIVE); URINE LEUK ESTERASE NEGATIVE (NEGATIVE); URINE NITRITE NEGATIVE (NEGATIVE); URINE PROTEIN NEGATIVE (NEGATIVE); URINE UROBILINOGEN 0.2 mg/dL (0.2-1.0)
[2021-12-04] MEDS ORDERED: FUROSEMIDE 40 MG/4 ML INJECTABLE VIAL IVPUSH ONE (13:29)
[2021-12-04] MEDS ORDERED: FUROSEMIDE 40 MG/4 ML INJECTABLE VIAL ONE ×2 (13:46→14:28)
[2021-12-04 16:15] LABS: CALCIUM 8.7 mg/dL (8.5-10.1)
[2021-12-04 16:16] LABS: ALBUMIN 3.4 g/dl (3.4-5.0); BLOOD UREA NITROGEN 18.1 mg/dL (7-18)
[2021-12-04 16:19] LABS: CREATININE 1.1 mg/dL (0.55-1.3)
[2021-12-04 16:20] LABS: TOT PROT 6.8 g/dl (6.4-8.2)
[2021-12-04 16:33] LABS: INR 1.3 (0.83-1.09)
[2021-12-04 16:36] LABS: ACTIVATED PTT 30.6 SECONDS (25.2-36.5)
[2021-12-04] MEDS ORDERED: ALBUTEROL SO4 HFA INHALER IH PRN (17:22)
[2021-12-04] MEDS ORDERED: ACETAMINOPHEN 325 MG TABLET (FP) PO PRN (17:22)
[2021-12-04] MEDS ORDERED: POLYETHYLENE GLYCOL (HEALTHYLAX) 3350 17 GM PACKET PO PRN (17:55)
[2021-12-05] MEDS: INSULIN SLIDING SCALE (NOVOLOG) 1 VIAL SQ SCH ×5 (00:57→21:48)
[2021-12-05] MEDS ORDERED: ATORVASTATIN CA 20 MG TABLET (FP) ONE (01:11)
[2021-12-05] MEDS ORDERED: APIXABAN 5 MG TABLET ONE (01:12)
[2021-12-05] MEDS ORDERED: SODIUM ZIRCONIUM CYCLOSILICATE (LOKELMA) 5 GM PACKET ONE (01:12)
[2021-12-05] MEDS: APIXABAN 5 MG TABLET PO SCH ×3 (01:22→21:47)
[2021-12-05] MEDS: SODIUM ZIRCONIUM CYCLOSILICATE (LOKELMA) 5 GM PACKET PO SCH ×2 (01:22→16:52)
[2021-12-05] MEDS: ATORVASTATIN CA 20 MG TABLET (FP) PO SCH ×2 (01:23→21:47)
[2021-12-05 05:48] VITALS: BMI 35.6
[2021-12-05 08:46] LABS: BASO % 0.5 % (0-2.0); EOS % 4.3 % (0-4.5); HEMATOCRIT 32.6 % (32.4-45.2); HEMOGLOBIN 10.8 GM/dL (10.7-15.3); LYMPH % 21.2 % (8-40); MCH 31.1 pg (25.7-33.7); MEAN CELL VOLUME 94.3 fl (80-96); MEAN PLT VOLUME 8.4 fl (7.5-11.1); MONO % 10.4 % (3.8-10.2); NEUT % 63.6 % (42.8-82.8); PLATELET COUNT 188 10^3/uL (134-434); RBC 3.46 M/mm3 (3.60-5.2); RDW 14.4 % (11.6-15.6)
[2021-12-05 09:03] LABS: BLOOD UREA NITROGEN 22.6 mg/dL (7-18); CALCIUM 8.6 mg/dL (8.5-10.1); MAGNESIUM 2.3 mg/dL (1.8-2.4)
[2021-12-05] MEDS: FUROSEMIDE 40 MG/4 ML INJECTABLE VIAL IVPUSH SCH (09:45)
[2021-12-05] MEDS: ASCORBIC ACID 250 MG TABLET (FP) PO SCH (09:45)
[2021-12-05] MEDS: ASPIRIN 81 MG CHEWABLE TABLETS PO SCH (09:45)
[2021-12-05] MEDS: BUDESONIDE/FORMETEROL FUMARATE 160/4.5 mcg INHALER IH SCH ×2 (10:52→21:48)
[2021-12-05] MEDS: TIOTROPIUM BROMIDE 2.5 MCG (SPIRIVA) RESPIMAT INHALER IH SCH (10:52)
[2021-12-06] MEDS: INSULIN SLIDING SCALE (NOVOLOG) 1 VIAL SQ SCH ×4 (06:09→23:15)
[2021-12-06] MEDS: ASCORBIC ACID 250 MG TABLET (FP) PO SCH (10:27)
[2021-12-06] MEDS: ASPIRIN 81 MG CHEWABLE TABLETS PO SCH (10:28)
[2021-12-06] MEDS: TIOTROPIUM BROMIDE 2.5 MCG (SPIRIVA) RESPIMAT INHALER IH SCH (10:28)
[2021-12-06] MEDS: BUDESONIDE/FORMETEROL FUMARATE 160/4.5 mcg INHALER IH SCH ×3 (10:28→23:16)
[2021-12-06] MEDS: FUROSEMIDE 40 MG/4 ML INJECTABLE VIAL IVPUSH SCH (10:28)
[2021-12-06] MEDS: APIXABAN 5 MG TABLET PO SCH ×2 (10:32→23:14)
[2021-12-06] MEDS ORDERED: DOCUSATE SODIUM 100 MG CAPSULE (FP) PO PRN (11:08)
[2021-12-06] MEDS: SODIUM ZIRCONIUM CYCLOSILICATE (LOKELMA) 5 GM PACKET PO SCH (17:52)
[2021-12-06] MEDS: ATORVASTATIN CA 20 MG TABLET (FP) PO SCH (23:14)
[2021-12-07] MEDS: INSULIN SLIDING SCALE (NOVOLOG) 1 VIAL SQ SCH ×4 (07:46→22:46)
[2021-12-07 07:48] LABS: HEMATOCRIT 35.2 % (32.4-45.2); HEMOGLOBIN 11.5 GM/dL (10.7-15.3); MCH 30.5 pg (25.7-33.7); MCHC 32.6 g/dl (32.0-36.0); MEAN CELL VOLUME 93.6 fl (80-96); MEAN PLT VOLUME 7.6 fl (7.5-11.1); PLATELET COUNT 209 10^3/uL (134-434); RBC 3.76 M/mm3 (3.60-5.2); RDW 13.9 % (11.6-15.6); WHITE BLOOD COUNT 5.9 K/mm3 (4.0-10.0)
[2021-12-07 08:13] LABS: ALBUMIN 3.3 g/dl (3.4-5.0); MAGNESIUM 2.3 mg/dL (1.8-2.4)
[2021-12-07 08:18] LABS: BILIRUBIN,TOTAL 1.1 mg/dL (0.2-1); TOT PROT 6.6 g/dl (6.4-8.2)
[2021-12-07] MEDS: ASPIRIN 81 MG CHEWABLE TABLETS PO SCH (10:55)
[2021-12-07] MEDS: TIOTROPIUM BROMIDE 2.5 MCG (SPIRIVA) RESPIMAT INHALER IH SCH (10:55)
[2021-12-07] MEDS: BUDESONIDE/FORMETEROL FUMARATE 160/4.5 mcg INHALER IH SCH ×2 (10:55→22:02)
[2021-12-07] MEDS: APIXABAN 5 MG TABLET PO SCH ×2 (10:55→21:58)
[2021-12-07] MEDS: FUROSEMIDE 40 MG/4 ML INJECTABLE VIAL IVPUSH SCH (10:55)
[2021-12-07] MEDS: ASCORBIC ACID 250 MG TABLET (FP) PO SCH (10:55)
[2021-12-07] MEDS: ATORVASTATIN CA 20 MG TABLET (FP) PO SCH (21:58)
[2021-12-08] MEDS: INSULIN SLIDING SCALE (NOVOLOG) 1 VIAL SQ SCH ×2 (06:40→12:31)
[2021-12-08] MEDS ORDERED: FUROSEMIDE 40 MG TABLET (FP) PO SCH (10:00)
[2021-12-08] MEDS: ASCORBIC ACID 250 MG TABLET (FP) PO SCH (10:22)
[2021-12-08] MEDS: APIXABAN 5 MG TABLET PO SCH (10:22)
[2021-12-08] MEDS: ASPIRIN 81 MG CHEWABLE TABLETS PO SCH (10:22)
[2021-12-08] MEDS: TIOTROPIUM BROMIDE 2.5 MCG (SPIRIVA) RESPIMAT INHALER IH SCH (10:26)
[2021-12-08] MEDS: BUDESONIDE/FORMETEROL FUMARATE 160/4.5 mcg INHALER IH SCH (10:26)
[2021-12-08 13:28] VITALS: BP 143/64; PULSE 75; TEMP 98.4
== END 2021-12-08 18:12 | disposition home health service (06) | DRG 291 ==
LOC: JER 07:19 → JERBED 10:39 → J4W 12-05 03:34
PROVIDERS: ADMIT Internal Medicine; ATTEND Family Medicine
DX: I11.0 Hypertensive heart disease with heart failure (principal); I50.33 Acute on chronic diastolic (congestive) heart failure; I48.20 Chronic atrial fibrillation, unspecified; E78.5 Hyperlipidemia, unspecified; E11.9 Type 2 diabetes mellitus without complications; Z79.01 Long term (current) use of anticoagulants; K59.00 Constipation, unspecified; J44.9 Chronic obstructive pulmonary disease, unspecified; R82.71 Bacteriuria
CPT/HCPCS: 36415; 71045-TC-FY; 76937; 80048; 80053; 80162; 81003; 82962; 83036; 83735; 83880; 84484; 85025; 85027; 85610; 85730; 86850; 86900; 86901; 87086; 87186; 93005; 93010; 93970-TC; 97116-GP; 97162-GP; 99285-25; C9803-CS; U0003; U0005

== ENCOUNTER 2022-02-10 17:02 | Inpatient (IN) | payer OTHER ==
[2022-02-10 22:16] LABS: BASO % 0.9 % (0-2.0); EOS % 4.9 % (0-4.5); HEMATOCRIT 34.2 % (32.4-45.2); HEMOGLOBIN 11.2 GM/dL (10.7-15.3); LYMPH % 28.8 % (8-40); MCH 31.4 pg (25.7-33.7); MCHC 32.9 g/dl (32.0-36.0); MEAN CELL VOLUME 95.5 fl (80-96); MEAN PLT VOLUME 8.2 fl (7.5-11.1); MONO % 13.5 % (3.8-10.2); NEUT % 51.9 % (42.8-82.8); PLATELET COUNT 170 10^3/uL (134-434); RBC 3.58 M/mm3 (3.60-5.2); RDW 15.1 % (11.6-15.6); WHITE BLOOD COUNT 5.5 K/mm3 (4.0-10.0)
[2022-02-10 22:29] LABS: CALCIUM 8.8 mg/dL (8.5-10.1)
[2022-02-10 22:30] LABS: ALBUMIN 3.3 g/dl (3.4-5.0); BLOOD UREA NITROGEN 19.7 mg/dL (7-18); MAGNESIUM 2.3 mg/dL (1.8-2.4)
[2022-02-10 22:33] LABS: CREATININE 1.1 mg/dL (0.55-1.3)
[2022-02-10 22:35] LABS: BILIRUBIN,TOTAL 1.1 mg/dL (0.2-1)
[2022-02-10 22:38] LABS: N-TERMINAL BNP 1101.5 pg/ml (5-450)
[2022-02-10] MEDS ORDERED: FUROSEMIDE 40 MG/4 ML INJECTABLE VIAL IVPUSH ONE (22:38)
[2022-02-10 23:16] LABS: CALCIUM 8.7 mg/dL (8.5-10.1)
[2022-02-10] MEDS ORDERED: FUROSEMIDE 40 MG/4 ML INJECTABLE VIAL ONE (23:34)
[2022-02-10] MEDS ORDERED: ALBUTEROL SO4 HFA INHALER IH PRN (23:36)
[2022-02-11 07:07] LABS: BASO % 0.5 % (0-2.0); EOS % 3.2 % (0-4.5); HEMATOCRIT 34.9 % (32.4-45.2); HEMOGLOBIN 11.2 GM/dL (10.7-15.3); LYMPH % 27.9 % (8-40); MCH 31.2 pg (25.7-33.7); MCHC 32.2 g/dl (32.0-36.0); MEAN PLT VOLUME 7.5 fl (7.5-11.1); MONO % 13.7 % (3.8-10.2); NEUT % 54.7 % (42.8-82.8); PLATELET COUNT 160 10^3/uL (134-434); RDW 15.2 % (11.6-15.6); WHITE BLOOD COUNT 5.7 K/mm3 (4.0-10.0)
[2022-02-11 07:34] LABS: CALCIUM 8.6 mg/dL (8.5-10.1)
[2022-02-11 07:35] LABS: ALBUMIN 3.2 g/dl (3.4-5.0); BLOOD UREA NITROGEN 19.1 mg/dL (7-18); MAGNESIUM 2.1 mg/dL (1.8-2.4)
[2022-02-11 07:37] LABS: CREATININE 1.1 mg/dL (0.55-1.3)
[2022-02-11 07:38] LABS: TOT PROT 6.6 g/dl (6.4-8.2)
[2022-02-11 07:39] LABS: BILIRUBIN,TOTAL 1.4 mg/dL (0.2-1)
[2022-02-11 08:13] LABS: URINE APPEARANCE CLEAR; URINE BILIRUBIN NEGATIVE (NEGATIVE); URINE COLOR YELLOW; URINE GLUCOSE (UA) NEGATIVE (NEGATIVE); URINE KETONE NEGATIVE (NEGATIVE); URINE LEUK ESTERASE NEGATIVE (NEGATIVE); URINE NITRITE NEGATIVE (NEGATIVE); URINE PROTEIN NEGATIVE (NEGATIVE); URINE UROBILINOGEN 0.2 mg/dL (0.2-1.0)
[2022-02-11] MEDS ORDERED: FUROSEMIDE 40 MG/4 ML INJECTABLE VIAL IVPUSH ONE (09:39)
[2022-02-11] MEDS ORDERED: DILTIAZEM HCL 120 MG PO SCH (10:00)
[2022-02-11] MEDS ORDERED: APIXABAN 5 MG TABLET ONE (10:47)
[2022-02-11] MEDS ORDERED: ASPIRIN 81 MG CHEWABLE TABLETS ONE (10:47)
[2022-02-11] MEDS ORDERED: FUROSEMIDE 40 MG/4 ML INJECTABLE VIAL ONE (10:47)
[2022-02-11] MEDS: ASPIRIN 81 MG CHEWABLE TABLETS PO SCH (10:52)
[2022-02-11] MEDS: APIXABAN 5 MG TABLET PO SCH ×2 (10:52→21:57)
[2022-02-11] MEDS: BUDESONIDE/FORMETEROL FUMARATE 160/4.5 mcg INHALER IH SCH ×2 (12:07→21:57)
[2022-02-11] MEDS: TIOTROPIUM BROMIDE 2.5 MCG (SPIRIVA) RESPIMAT INHALER IH SCH (12:07)
[2022-02-11 15:08] VITALS: BMI 37.7
[2022-02-11] MEDS: ATORVASTATIN CA 20 MG TABLET (FP) PO SCH (21:57)
[2022-02-12] MEDS: APIXABAN 5 MG TABLET PO SCH ×2 (09:40→21:16)
[2022-02-12] MEDS: ASPIRIN 81 MG CHEWABLE TABLETS PO SCH (09:40)
[2022-02-12] MEDS: TIOTROPIUM BROMIDE 2.5 MCG (SPIRIVA) RESPIMAT INHALER IH SCH (09:41)
[2022-02-12] MEDS: BUDESONIDE/FORMETEROL FUMARATE 160/4.5 mcg INHALER IH SCH ×2 (09:41→21:16)
[2022-02-12 10:54] VITALS: RESP 18
[2022-02-12] MEDS: ACETAMINOPHEN 325 MG TABLET (FP) PO PRN (11:06)
[2022-02-12] MEDS: ATORVASTATIN CA 20 MG TABLET (FP) PO SCH (21:16)
[2022-02-12 23:11] VITALS: TEMP 98.1
[2022-02-13 05:53] VITALS: PULSE 92
[2022-02-13] MEDS: ACETAMINOPHEN 325 MG TABLET (FP) PO PRN (06:08)
[2022-02-13] MEDS ORDERED: FUROSEMIDE 40 MG TABLET (FP) PO SCH (10:00)
[2022-02-13] MEDS: ASPIRIN 81 MG CHEWABLE TABLETS PO SCH (10:22)
[2022-02-13] MEDS: APIXABAN 5 MG TABLET PO SCH (10:22)
[2022-02-13] MEDS: TIOTROPIUM BROMIDE 2.5 MCG (SPIRIVA) RESPIMAT INHALER IH SCH (10:23)
[2022-02-13] MEDS: BUDESONIDE/FORMETEROL FUMARATE 160/4.5 mcg INHALER IH SCH (10:23)
[2022-02-13 15:02] VITALS: BP 109/69
== END 2022-02-13 17:31 | disposition home health service (06) | DRG 291 ==
LOC: JER 17:02 → JERBED 22:48 → J6S 02-11 13:56
PROVIDERS: ADMIT Internal Medicine; ATTEND Family Medicine
DX: I11.0 Hypertensive heart disease with heart failure (principal); I50.33 Acute on chronic diastolic (congestive) heart failure; E11.9 Type 2 diabetes mellitus without complications; J45.909 Unspecified asthma, uncomplicated; J44.9 Chronic obstructive pulmonary disease, unspecified; E78.5 Hyperlipidemia, unspecified; R06.02 Shortness of breath; R09.02 Hypoxemia; F17.200 Nicotine dependence, unspecified, uncomplicated; R06.09 Other forms of dyspnea; K59.09 Other constipation; E66.9 Obesity, unspecified; Z68.35 Body mass index [BMI] 35.0-35.9, adult; E87.70 Fluid overload, unspecified
CPT/HCPCS: 36415; 71045-TC-FY; 80048; 80053; 81003; 83735; 83880; 84484; 85025; 93005; 93010; 93306-TC; 93971-TC; 94761; 97116-GP; 97162-GP; 99285-25; C9803-CS; U0003; U0005

== ENCOUNTER 2022-03-06 11:13 | Inpatient (IN) | payer OTHER ==
[2022-03-06 11:50] VITALS: BMI 36.2
[2022-03-06 13:32] LABS: BASO % 0.7 % (0-2.0); EOS % 4.1 % (0-4.5); HEMATOCRIT 33.7 % (32.4-45.2); HEMOGLOBIN 10.8 GM/dL (10.7-15.3); LYMPH % 20.7 % (8-40); MCH 30.4 pg (25.7-33.7); MCHC 32.1 g/dl (32.0-36.0); MEAN CELL VOLUME 94.7 fl (80-96); MEAN PLT VOLUME 7.5 fl (7.5-11.1); MONO % 13.3 % (3.8-10.2); NEUT % 61.2 % (42.8-82.8); PLATELET COUNT 185 10^3/uL (134-434); RBC 3.56 M/mm3 (3.60-5.2); WHITE BLOOD COUNT 6.2 K/mm3 (4.0-10.0)
[2022-03-06 13:58] LABS: CHLORIDE 104 mmol/L (98-107); SODIUM 137 mmol/L (136-145)
[2022-03-06 14:00] LABS: ALBUMIN 3.3 g/dl (3.4-5.0); BLOOD UREA NITROGEN 20.7 mg/dL (7-18); CALCIUM 9.1 mg/dL (8.5-10.1); CO2 32 mmol/L (21-32)
[2022-03-06 14:02] LABS: CREATININE 1.1 mg/dL (0.55-1.3); SGPT/ALT 21 U/L (13-61)
[2022-03-06 14:04] LABS: SGOT/AST 49 U/L (15-37)
[2022-03-06 14:05] LABS: BILIRUBIN,TOTAL 1.2 mg/dL (0.2-1); TOT PROT 7.3 g/dl (6.4-8.2)
[2022-03-06 14:06] LABS: ALK PHOS 63 U/L (45-117)
[2022-03-06 14:07] LABS: N-TERMINAL BNP 683.6 pg/ml (5-450)
[2022-03-06 14:09] LABS: ANION GAP 1 MMOL/L (8-16); GLUCOSE,RANDOM 90 mg/dL (74-106)
[2022-03-06] MEDS ORDERED: FUROSEMIDE 40 MG/4 ML INJECTABLE VIAL ONE (15:54)
[2022-03-06] MEDS: FUROSEMIDE 40 MG/4 ML INJECTABLE VIAL IVPUSH ONE ×2 (15:56→16:20)
[2022-03-06 17:44] LABS: CALCIUM 8.8 mg/dL (8.5-10.1)
[2022-03-06 17:46] LABS: BLOOD UREA NITROGEN 20.6 mg/dL (7-18)
[2022-03-06 17:49] LABS: CREATININE 0.9 mg/dL (0.55-1.3)
[2022-03-07] MEDS ORDERED: ALBUTEROL SO4 HFA INHALER IH PRN (02:20)
[2022-03-07] MEDS ORDERED: ACETAMINOPHEN 325 MG TABLET (FP) PO PRN (02:20)
[2022-03-07] MEDS: FUROSEMIDE 40 MG/4 ML INJECTABLE VIAL IVPUSH SCH (09:50)
[2022-03-07] MEDS: APIXABAN 5 MG TABLET PO SCH ×2 (09:51→22:14)
[2022-03-07] MEDS: ASPIRIN 81 MG CHEWABLE TABLETS PO SCH (09:51)
[2022-03-07] MEDS ORDERED: FLU VACC QS2022-23(6MOS UP)/PF 60 MCG/0.5 ML SYRINGE IM ONE (10:00)
[2022-03-07] MEDS: TIOTROPIUM BROMIDE 2.5 MCG (SPIRIVA) RESPIMAT INHALER IH SCH (10:41)
[2022-03-07] MEDS: BUDESONIDE/FORMETEROL FUMARATE 160/4.5 mcg INHALER IH SCH ×2 (10:41→22:14)
[2022-03-07 10:51] LABS: BASO % 0.6 % (0-2.0); EOS % 3.2 % (0-4.5); HEMATOCRIT 34.5 % (32.4-45.2); HEMOGLOBIN 10.7 GM/dL (10.7-15.3); LYMPH % 18.3 % (8-40); MCH 29.7 pg (25.7-33.7); MEAN PLT VOLUME 8.7 fl (7.5-11.1); NEUT % 67.9 % (42.8-82.8); PLATELET COUNT 196 10^3/uL (134-434); RBC 3.59 M/mm3 (3.60-5.2); RDW 14.4 % (11.6-15.6); WHITE BLOOD COUNT 5.1 K/mm3 (4.0-10.0)
[2022-03-07 11:37] LABS: CALCIUM 8.8 mg/dL (8.5-10.1)
[2022-03-07 11:38] LABS: ALBUMIN 3.3 g/dl (3.4-5.0); BLOOD UREA NITROGEN 21.2 mg/dL (7-18)
[2022-03-07 11:42] LABS: TOT PROT 6.7 g/dl (6.4-8.2)
[2022-03-07 11:43] LABS: BILIRUBIN,TOTAL 1.2 mg/dL (0.2-1)
[2022-03-07] MEDS: ATORVASTATIN CA 20 MG TABLET (FP) PO SCH (22:14)
[2022-03-08] MEDS: APIXABAN 5 MG TABLET PO SCH ×2 (09:56→21:17)
[2022-03-08] MEDS: FUROSEMIDE 40 MG/4 ML INJECTABLE VIAL IVPUSH SCH (09:56)
[2022-03-08] MEDS: ASPIRIN 81 MG CHEWABLE TABLETS PO SCH (09:56)
[2022-03-08] MEDS: BUDESONIDE/FORMETEROL FUMARATE 160/4.5 mcg INHALER IH SCH ×2 (09:56→21:17)
[2022-03-08] MEDS: TIOTROPIUM BROMIDE 2.5 MCG (SPIRIVA) RESPIMAT INHALER IH SCH (09:56)
[2022-03-08 13:39] LABS: BLOOD UREA NITROGEN 21.5 mg/dL (7-18); CALCIUM 8.5 mg/dL (8.5-10.1)
[2022-03-08] MEDS: ATORVASTATIN CA 20 MG TABLET (FP) PO SCH (21:17)
[2022-03-09 08:08] LABS: CALCIUM 8.5 mg/dL (8.5-10.1)
[2022-03-09 08:09] LABS: ALBUMIN 3.2 g/dl (3.4-5.0); BLOOD UREA NITROGEN 20.4 mg/dL (7-18)
[2022-03-09 08:13] LABS: TOT PROT 6.6 g/dl (6.4-8.2)
[2022-03-09 08:14] LABS: BILIRUBIN,TOTAL 1.2 mg/dL (0.2-1)
[2022-03-09] MEDS: TIOTROPIUM BROMIDE 2.5 MCG (SPIRIVA) RESPIMAT INHALER IH SCH (09:03)
[2022-03-09] MEDS: APIXABAN 5 MG TABLET PO SCH ×2 (09:03→21:24)
[2022-03-09] MEDS: FUROSEMIDE 40 MG/4 ML INJECTABLE VIAL IVPUSH SCH ×2 (09:03→21:24)
[2022-03-09] MEDS: ASPIRIN 81 MG CHEWABLE TABLETS PO SCH (09:03)
[2022-03-09] MEDS: BUDESONIDE/FORMETEROL FUMARATE 160/4.5 mcg INHALER IH SCH ×2 (09:03→21:25)
[2022-03-09] MEDS: ATORVASTATIN CA 20 MG TABLET (FP) PO SCH (21:24)
[2022-03-10 09:07] LABS: BLOOD UREA NITROGEN 19.5 mg/dL (7-18); CALCIUM 8.7 mg/dL (8.5-10.1); MAGNESIUM 1.9 mg/dL (1.8-2.4)
[2022-03-10 09:10] LABS: CREATININE 0.9 mg/dL (0.55-1.3)
[2022-03-10] MEDS: TIOTROPIUM BROMIDE 2.5 MCG (SPIRIVA) RESPIMAT INHALER IH SCH (10:30)
[2022-03-10] MEDS: BUDESONIDE/FORMETEROL FUMARATE 160/4.5 mcg INHALER IH SCH ×2 (10:31→21:56)
[2022-03-10] MEDS: APIXABAN 5 MG TABLET PO SCH ×2 (10:31→21:56)
[2022-03-10] MEDS: ASPIRIN 81 MG CHEWABLE TABLETS PO SCH (10:31)
[2022-03-10] MEDS: FUROSEMIDE 40 MG/4 ML INJECTABLE VIAL IVPUSH SCH ×2 (10:31→21:56)
[2022-03-10 15:51] VITALS: RESP 18
[2022-03-10] MEDS: ATORVASTATIN CA 20 MG TABLET (FP) PO SCH (21:56)
[2022-03-11 09:30] LABS: ALBUMIN 3.2 g/dl (3.4-5.0); BLOOD UREA NITROGEN 20.6 mg/dL (7-18); CALCIUM 8.8 mg/dL (8.5-10.1)
[2022-03-11 09:34] LABS: TOT PROT 6.6 g/dl (6.4-8.2)
[2022-03-11 09:35] LABS: BILIRUBIN,TOTAL 1.2 mg/dL (0.2-1)
[2022-03-11] MEDS: ASPIRIN 81 MG CHEWABLE TABLETS PO SCH (10:34)
[2022-03-11] MEDS: FUROSEMIDE 40 MG/4 ML INJECTABLE VIAL IVPUSH SCH ×2 (10:34→21:28)
[2022-03-11] MEDS: BUDESONIDE/FORMETEROL FUMARATE 160/4.5 mcg INHALER IH SCH ×2 (10:34→21:28)
[2022-03-11] MEDS: APIXABAN 5 MG TABLET PO SCH ×2 (10:34→21:28)
[2022-03-11] MEDS: TIOTROPIUM BROMIDE 2.5 MCG (SPIRIVA) RESPIMAT INHALER IH SCH (10:34)
[2022-03-11 14:23] LABS: ARTERIAL BLD GAS O2 SATURATION 97.4 % (95-98); ARTERIAL BLOOD GAS BASE EXCESS 13.3 mmol/L (-2-2); ARTERIAL BLOOD GAS PO2 99.8 mmHg (80-100); ARTERIAL BLOOD GAS pH 7.416 (7.350-7.450)
[2022-03-11 14:26] LABS: ALLENS TEST POSITIVE
[2022-03-11] MEDS: ATORVASTATIN CA 20 MG TABLET (FP) PO SCH (21:28)
[2022-03-12] MEDS: FUROSEMIDE 40 MG/4 ML INJECTABLE VIAL IVPUSH SCH (09:52)
[2022-03-12] MEDS: ASPIRIN 81 MG CHEWABLE TABLETS PO SCH (09:52)
[2022-03-12] MEDS: APIXABAN 5 MG TABLET PO SCH (09:53)
[2022-03-12] MEDS: TIOTROPIUM BROMIDE 2.5 MCG (SPIRIVA) RESPIMAT INHALER IH SCH (09:57)
[2022-03-12] MEDS: BUDESONIDE/FORMETEROL FUMARATE 160/4.5 mcg INHALER IH SCH (09:58)
[2022-03-12] MEDS ORDERED: MULTIVITAMINS (DAILY MVI) TABLET (FP) PO SCH (15:00)
[2022-03-12] MEDS ORDERED: ASCORBIC ACID 250 MG TABLET (FP) PO SCH (15:00)
[2022-03-12 18:30] VITALS: BP 123/69; PULSE 86; TEMP 98.1
== END 2022-03-12 20:03 | disposition home health service (06) | DRG 291 ==
LOC: JER 11:13 → JERBED 19:11 → J4W 03-07 06:45
PROVIDERS: ADMIT Internal Medicine; ATTEND Family Medicine
DX: I13.0 Hypertensive heart and chronic kidney disease with heart failure and stage 1 through stage 4 chronic kidney disease, or unspecified chronic kidney disease (principal); I50.33 Acute on chronic diastolic (congestive) heart failure; R06.09 Other forms of dyspnea; I48.91 Unspecified atrial fibrillation; M79.671 Pain in right foot; R60.0 Localized edema; J44.9 Chronic obstructive pulmonary disease, unspecified; E78.5 Hyperlipidemia, unspecified; I27.20 Pulmonary hypertension, unspecified; J45.909 Unspecified asthma, uncomplicated; N18.31 Chronic kidney disease, stage 3a; Z79.82 Long term (current) use of aspirin; E11.22 Type 2 diabetes mellitus with diabetic chronic kidney disease; E87.70 Fluid overload, unspecified
CPT/HCPCS: 0241U-QW; 36415; 36600; 71045-TC-FY; 71250-TC; 80048; 80053; 82550; 82803; 83735; 83880; 84484; 85025; 93005; 93010; 93308; 93970-TC; 93971-RT; 97116-GP; 97162-GP; 99285-25; G0008; Q2036

== ENCOUNTER 2022-03-23 14:54 | Inpatient (IN) | payer OTHER ==
[2022-03-23] MEDS ORDERED: TORSEMIDE 20 MG TABLET (FP) PO ONE (16:54)
[2022-03-23 17:35] LABS: BASO % 0.9 % (0-2.0); EOS % 2.4 % (0-4.5); HEMATOCRIT 34.8 % (32.4-45.2); LYMPH % 15.9 % (8-40); MCH 29.2 pg (25.7-33.7); MCHC 31.6 g/dl (32.0-36.0); MEAN CELL VOLUME 92.6 fl (80-96); MEAN PLT VOLUME 8.1 fl (7.5-11.1); MONO % 14.7 % (3.8-10.2); NEUT % 66.1 % (42.8-82.8); PLATELET COUNT 244 10^3/uL (134-434); RBC 3.76 M/mm3 (3.60-5.2); RDW 13.6 % (11.6-15.6); WHITE BLOOD COUNT 9.3 K/mm3 (4.0-10.0)
[2022-03-23 17:48] LABS: INR 1.97 (0.83-1.09); PROTHROMBIN TIME (PATIENT) 22.8 SEC (9.7-13.0)
[2022-03-23 17:51] LABS: ACTIVATED PTT 32.2 SECONDS (25.2-36.5)
[2022-03-23 17:54] LABS: BLOOD UREA NITROGEN 37.1 mg/dL (7-18); CALCIUM 8.7 mg/dL (8.5-10.1)
[2022-03-23 17:55] LABS: ALBUMIN 2.9 g/dl (3.4-5.0)
[2022-03-23 17:57] LABS: CREATININE 1.2 mg/dL (0.55-1.3)
[2022-03-23 17:59] LABS: BILIRUBIN,TOTAL 1.1 mg/dL (0.2-1); TOT PROT 6.3 g/dl (6.4-8.2)
[2022-03-23] MEDS ORDERED: ASPIRIN 81 MG CHEWABLE TABLETS ONE (20:17)
[2022-03-23] MEDS: ASPIRIN 81 MG CHEWABLE TABLETS PO SCH (20:20)
[2022-03-23] MEDS: ATORVASTATIN CA 20 MG TABLET (FP) PO SCH (21:49)
[2022-03-23] MEDS: APIXABAN 5 MG TABLET PO SCH (21:49)
[2022-03-24] MEDS: APIXABAN 5 MG TABLET PO SCH ×2 (09:33→21:32)
[2022-03-24] MEDS: ASPIRIN 81 MG CHEWABLE TABLETS PO SCH (09:33)
[2022-03-24] MEDS ORDERED: TORSEMIDE 20 MG TABLET (FP) PO ONE (16:31)
[2022-03-24] MEDS: FUROSEMIDE 40 MG/4 ML INJECTABLE VIAL IVPUSH SCH (16:40)
[2022-03-24] MEDS: ATORVASTATIN CA 20 MG TABLET (FP) PO SCH (21:32)
[2022-03-25] MEDS: ASPIRIN 81 MG CHEWABLE TABLETS PO SCH (09:38)
[2022-03-25] MEDS: FUROSEMIDE 40 MG/4 ML INJECTABLE VIAL IVPUSH SCH (09:38)
[2022-03-25] MEDS: APIXABAN 5 MG TABLET PO SCH ×2 (09:39→22:12)
[2022-03-25 11:44] LABS: HEMATOCRIT 37.9 % (32.4-45.2); HEMOGLOBIN 12.3 GM/dL (10.7-15.3); MCH 30.2 pg (25.7-33.7); MCHC 32.4 g/dl (32.0-36.0); MEAN CELL VOLUME 93.4 fl (80-96); MEAN PLT VOLUME 7.5 fl (7.5-11.1); PLATELET COUNT 273 10^3/uL (134-434); RBC 4.06 M/mm3 (3.60-5.2); RDW 13.9 % (11.6-15.6); WHITE BLOOD COUNT 7.5 K/mm3 (4.0-10.0)
[2022-03-25 12:09] LABS: CALCIUM 9.4 mg/dL (8.5-10.1)
[2022-03-25 12:10] LABS: BLOOD UREA NITROGEN 33.6 mg/dL (7-18)
[2022-03-25 12:13] LABS: CREATININE 1.4 mg/dL (0.55-1.3)
[2022-03-25 12:46] VITALS: BMI 35.6
[2022-03-25] MEDS ORDERED: POTASSIUM CHLORIDE TABS 20 MEQ TABLET.ER (FP) PO ONE (12:47)
[2022-03-25] MEDS: KCL 10 MEQ IVPB 10 MEQ/100 ML INFUS.BAG IVPB SCH ×3 (13:14→16:31)
[2022-03-25] MEDS ORDERED: ALBUTEROL SO4 0.083% IH SOL 2.5 MG/3 ML VIAL.NEB. NEB PRN (14:25)
[2022-03-25] MEDS: BUDESONIDE/FORMETEROL FUMARATE 160/4.5 mcg INHALER IH SCH (22:12)
[2022-03-25] MEDS: ATORVASTATIN CA 20 MG TABLET (FP) PO SCH (22:12)
[2022-03-26] MEDS: ASPIRIN 81 MG CHEWABLE TABLETS PO SCH (10:25)
[2022-03-26] MEDS: APIXABAN 5 MG TABLET PO SCH ×2 (10:26→22:09)
[2022-03-26] MEDS: TORSEMIDE 20 MG TABLET (FP) PO SCH (10:26)
[2022-03-26] MEDS: BUDESONIDE/FORMETEROL FUMARATE 160/4.5 mcg INHALER IH SCH ×2 (10:29→22:11)
[2022-03-26 13:17] LABS: EOS % 5.3 % (0-4.5); HEMATOCRIT 35.8 % (32.4-45.2); HEMOGLOBIN 11.7 GM/dL (10.7-15.3); LYMPH % 21.8 % (8-40); MCH 30.8 pg (25.7-33.7); MCHC 32.5 g/dl (32.0-36.0); MEAN CELL VOLUME 94.6 fl (80-96); MONO % 11.6 % (3.8-10.2); NEUT % 60.3 % (42.8-82.8); PLATELET COUNT 271 10^3/uL (134-434); RBC 3.79 M/mm3 (3.60-5.2); RDW 14.3 % (11.6-15.6); WHITE BLOOD COUNT 7.4 K/mm3 (4.0-10.0)
[2022-03-26 13:48] LABS: CALCIUM 8.8 mg/dL (8.5-10.1)
[2022-03-26 13:49] LABS: ALBUMIN 2.9 g/dl (3.4-5.0); BLOOD UREA NITROGEN 28.4 mg/dL (7-18)
[2022-03-26 13:52] LABS: CREATININE 1.2 mg/dL (0.55-1.3)
[2022-03-26 13:54] LABS: BILIRUBIN,TOTAL 0.9 mg/dL (0.2-1); TOT PROT 6.6 g/dl (6.4-8.2)
[2022-03-26] MEDS: ATORVASTATIN CA 20 MG TABLET (FP) PO SCH (22:09)
[2022-03-26] MEDS ORDERED: SENNOSIDES 8.6MG TABLET (FP) PO PRN (22:30)
[2022-03-27 08:45] LABS: HEMOGLOBIN 11.6 GM/dL (10.7-15.3); MCH 30.5 pg (25.7-33.7); MCHC 32.3 g/dl (32.0-36.0); MEAN CELL VOLUME 94.4 fl (80-96); MEAN PLT VOLUME 8.1 fl (7.5-11.1); PLATELET COUNT 282 10^3/uL (134-434); RBC 3.82 M/mm3 (3.60-5.2); RDW 14.3 % (11.6-15.6)
[2022-03-27 09:12] VITALS: RESP 18
[2022-03-27] MEDS: ASPIRIN 81 MG CHEWABLE TABLETS PO SCH (09:48)
[2022-03-27] MEDS: TORSEMIDE 20 MG TABLET (FP) PO SCH (09:48)
[2022-03-27] MEDS: APIXABAN 5 MG TABLET PO SCH (09:48)
[2022-03-27] MEDS: BUDESONIDE/FORMETEROL FUMARATE 160/4.5 mcg INHALER IH SCH (09:49)
[2022-03-27 09:54] LABS: BLOOD UREA NITROGEN 30.1 mg/dL (7-18); CALCIUM 8.6 mg/dL (8.5-10.1); MAGNESIUM 1.6 mg/dL (1.8-2.4)
[2022-03-27 09:58] LABS: CREATININE 1.4 mg/dL (0.55-1.3)
[2022-03-27 14:59] VITALS: PULSE 78
[2022-03-27 20:29] VITALS: BP 113/68; TEMP 98.1
== END 2022-03-27 20:30 | disposition home health service (06) | DRG 291 ==
LOC: JER 14:54 → JERBED 18:31 → J6S 21:03
PROVIDERS: ADMIT Internal Medicine; ATTEND Family Medicine
DX: I13.0 Hypertensive heart and chronic kidney disease with heart failure and stage 1 through stage 4 chronic kidney disease, or unspecified chronic kidney disease (principal); I50.33 Acute on chronic diastolic (congestive) heart failure; I48.20 Chronic atrial fibrillation, unspecified; K62.5 Hemorrhage of anus and rectum; N17.9 Acute kidney failure, unspecified; E78.5 Hyperlipidemia, unspecified; J45.909 Unspecified asthma, uncomplicated; R60.0 Localized edema; I25.10 Atherosclerotic heart disease of native coronary artery without angina pectoris; R26.9 Unspecified abnormalities of gait and mobility; R62.7 Adult failure to thrive; Z68.35 Body mass index [BMI] 35.0-35.9, adult; I27.20 Pulmonary hypertension, unspecified; E04.2 Nontoxic multinodular goiter; R91.8 Other nonspecific abnormal finding of lung field; E87.5 Hyperkalemia; E11.22 Type 2 diabetes mellitus with diabetic chronic kidney disease; N18.31 Chronic kidney disease, stage 3a; M20.12 Hallux valgus (acquired), left foot; M20.11 Hallux valgus (acquired), right foot; Z91.81 History of falling
CPT/HCPCS: 36415; 71045-TC-FY; 80048; 80053; 83735; 83880; 84484; 85025; 85027; 85610; 85730; 93005; 93010; 93971-TC; 97116-GP; 97162-GP; 99285-25; C9803-CS; U0003; U0005